=== PATIENT | male | born 1965 | race Caucasian/White ===

== ENCOUNTER → 2016-03-25 | Outpatient (REF) | payer OTHER ==
[~2016-03-25] MED LIST: ALBU17IN INH; ASPI1TAB24 PO; NITR4TASL SL
[2016-03-25 19:21] LABS: ALBUMIN 3.7 GM/DL (3.2-5.2); ALBUMIN/GLOBULIN RATIO 0.97 (1.00-1.93); ALKALINE PHOSPHATASE 135 U/L (45-117); ALT/SGPT 22 U/L (12-78); ANION GAP 7 MEQ/L (8-16); AST/SGOT 17 U/L (15-37); BILIRUBIN,TOTAL 0.5 MG/DL (0.2-1.0); BLOOD UREA NITROGEN 15 MG/DL (7-18); CALCIUM LEVEL 8.6 MG/DL (8.5-10.1); CARBON DIOXIDE LEVEL 28 MEQ/L (21-32); CHLORIDE LEVEL 105 MEQ/L (98-107); CREATININE FOR GFR 0.86 MG/DL (0.70-1.30); GLOMERULAR FILTRATION RATE > 60.0 (>56); GLUCOSE, FASTING 76 MG/DL (70-105); POTASSIUM SERUM 4.5 MEQ/L (3.5-5.1); SODIUM LEVEL 140 MEQ/L (136-145); TOTAL PROTEIN 7.5 GM/DL (6.4-8.2)
[2016-03-25 20:22] LABS: MEAN CORPUSCULAR HEMOGLOBIN 26.3 pg (27.0-33.0); MEAN CORPUSCULAR HGB CONC 32.7 g/dl (32.0-36.5); MEAN CORPUSCULAR VOLUME 80.4 fl (80.0-96.0); RED CELL DISTRIBUTION WIDTH 15.6 % (11.5-14.5); WHITE BLOOD COUNT 10.6 K/mm3 (4.0-10.0)
== END ==
LOC: M SFHCLERA 13:41
PROVIDERS: ATTEND Family Medicine
DX: Z01.818 Encounter for other preprocedural examination (principal); S09.92XD Unspecified injury of nose, subsequent encounter; X58.XXXD Exposure to other specified factors, subsequent encounter; Y92.89 Other specified places as the place of occurrence of the external cause; Y93.89 Activity, other specified; Y99.8 Other external cause status

== ENCOUNTER 2016-04-02 06:09 | Day surgery (SDC) | payer OTHER ==
[~2016-04-02] VITALS: Ht 182.9 cm; Wt 75.4 kg
[2016-04-02] VITALS (12 sets, daily range): BP systolic 121–137; BP diastolic 62–80; O2SAT 90–98
[2016-04-02] MEDS ORDERED: LR 1,000 ML IV SCH ×3 (06:15→11:15)
[2016-04-02] MEDS ORDERED: MIDAZOLAM INJ 2 MG/2 ML VIAL (J2250) As Ordered ONE ×2 (06:56→11:14)
[2016-04-02] MEDS ORDERED: ONDANSETRON 4MG/2ML VIAL (J2405) As Ordered ONE (06:57)
[2016-04-02] MEDS ORDERED: PROPOFOL 200 MG/20 ML VIAL As Ordered ONE (06:57)
[2016-04-02] MEDS ORDERED: fentaNYL 100 MCG/2 ML INJECTION (J3010) As Ordered ONE ×3 (06:57→12:04)
[2016-04-02] MEDS ORDERED: ROCURONIUM BROMIDE 50 MG/5 ML VIAL As Ordered ONE (06:57)
[2016-04-02] MEDS ORDERED: LIDOCAINE 2% INJ 100 MG/5 ML SDV (FOR ANES.) As Ordered ONE (06:57)
[2016-04-02] MEDS ORDERED: NEOSTIGMINE 1MG/ML 5 ML SYRINGE (J2710) As Ordered ONE (06:57)
[2016-04-02] MEDS ORDERED: GLYCOPYRROLATE INJ 0.2 MG/ML 2 ML VIAL As Ordered ONE ×2 (06:57)
[2016-04-02] MEDS ORDERED: METHYLENE BLUE 1% 10 ML VIAL (Q9968) As Ordered ONE ×2 (07:15→13:11)
[2016-04-02] MEDS ORDERED: LIDOCAINE W/EPINEPHRINE 1% 20ML VIAL As Ordered ONE ×2 (07:15→13:10)
[2016-04-02] MEDS ORDERED: SODIUM CHLORIDE 0.9% NASAL GEL 15MG (AYR) As Ordered ONE (07:15)
[2016-04-02] MEDS ORDERED: OXYMETAZOLINE NASAL SPRAY (AFRIN) As Ordered ONE ×2 (07:16→11:18)
[2016-04-02] MEDS ORDERED: dexameTHASONE 4 MG/ML 1ML VIAL (J1100) As Ordered ONE ×4 (07:50→12:01)
[2016-04-02] MEDS ORDERED: EPINEPHrine 1MG/ML INJ 30ML MD-VIAL As Ordered ONE ×3 (07:56→13:11)
[2016-04-02] MEDS ORDERED: LIDOCAINE W/EPINEPHRINE 1% 20ML VIAL XX ONE ×2 (08:06→14:19)
[2016-04-02] MEDS ORDERED: INDIGO CARMINE XX ONE (08:06)
[2016-04-02] MEDS ORDERED: METHYLENE BLUE 1% 10 ML VIAL (Q9968) XX ONE (08:11)
[2016-04-02] MEDS ORDERED: EPINEPHrine 1MG/ML INJ 30ML MD-VIAL XX ONE ×3 (08:14→13:06)
[2016-04-02] MEDS ORDERED: METOPROLOL 5 MG/5 ML VIAL As Ordered ONE (08:40)
[2016-04-02] MEDS ORDERED: SODIUM CHLORIDE 0.9% NASAL GEL 15MG (AYR) XX ONE (09:09)
[2016-04-02] MEDS ORDERED: PERCOCET 5MG/325MG TAB As Ordered ONE (10:02)
[2016-04-02] MEDS ORDERED: oxyCODONE 5MG TAB As Ordered ONE (10:12)
[2016-04-02] MEDS ORDERED: ONDANSETRON 4MG/2ML VIAL (J2405) IV PRN ×2 (10:15→13:45)
[2016-04-02] MEDS ORDERED: PERCOCET 5MG/325MG TAB PO PRN (10:15)
[2016-04-02] MEDS ORDERED: oxyCODONE 5MG TAB PO ONE (10:30)
[2016-04-02] MEDS: fentaNYL 100 MCG/2 ML INJECTION (J3010) IV PRN ×2 (11:00→11:05)
[2016-04-02] MEDS ORDERED: AUGMENTIN 875 MG TAB PO ONE (11:15)
[2016-04-02] MEDS ORDERED: POVIDONE-IODINE 5% OPHTH PREP SOL 30ML As Ordered ONE (11:48)
[2016-04-02] MEDS ORDERED: PHENYLEPHRINE 2.5% OPHTH SOL 2ML As Ordered ONE (12:02)
[2016-04-02] MEDS ORDERED: TROPICAMIDE 1% OPHTH SOLN 2 ML As Ordered ONE (12:03)
[2016-04-02] MEDS ORDERED: SUGAMMADEX SODIUM 500 MG/5 ML VIAL (BRIDION) As Ordered ONE (12:15)
--- NOTE | 2016-04-02 12:36 | REP ---
CT MAXILLOFACIAL WITHOUT CONTRAST: 04/02/2016 CLINICAL HISTORY: Trauma, postoperative. Comparison: 12/13/[address] TECHNIQUE: Axial soft tissue and bone window settings with coronal and sagittal reconstructions in soft tissue and bone window settings. As on the previous study, the septum is deviated towards the right and the nose deviated to the left. However, there is now evidence of acute depressed comminuted nasal bone fractures bilaterally. In addition, the medial wall of the right orbit is fractured with opacification of ethmoid air cells anteriorly on both sides. There is air-fluid level in the right frontal sinus with fracture through the floor of the right frontal sinus. The orbital floor on both sides is intact and unchanged. The zygomatic arches and lateral orbital struts are intact. There is hematoma in the right orbit peripheral to the medial rectus muscle. This proptosis of the right globe. Extensive periorbital hematoma is noted. The supraorbital and periorbital region on the right. There are air-fluid levels in the bilateral maxillary sinuses. Some air fluid level in the left sphenoid sinus and mucosal thickening in the right. The left orbital margins appear grossly intact. The osteomeatal complex on the left is patent. On the right it is stenotic on the previous study and occluded today. No fracture of the left frontal sinus or air-fluid level there in. Minor mucosal thickening in the floor near the frontoethmoidal recess on the left. Mastoids are intact. Visualized mandible, its condyles and rami intact. The nasal spine of the maxilla without a fracture. There is soft-tissue swelling upper lip. Ring of C1 is intact. Dens and C1 have a normal relationship on all projections. IMPRESSION: 1. Acute fractures of the nasal bones depressed, comminuted and seen bilaterally. There is deviation of the septum towards the right and the nose towards the left as on the previous studies but the fractures are all new. 2. Fracture of the medial orbital wall anteriorly an the floor of the frontal sinus on the right without definite discontinuity on the left and with opacification of right ethmoids, anterior left ethmoids, left frontal sinus, left and right sphenoids with air-fluid levels, and mucosal thickening and air-fluid levels in both maxillary sinuses. 3. Periorbital hematoma supraorbital ridge to infraorbital region on the right side which appears acute. There is proptosis of the right globe with hematoma peripheral to the medial rectus muscle. Signed by Champ Bales MD 04/02/2016 05:58 P
[2016-04-02] MEDS ORDERED: TOBRADEX OPHTH OINT 3.5 GM As Ordered ONE (13:03)
[2016-04-02] MEDS ORDERED: MORPHINE 4 MG/ML 1ML SYRINGE IV PRN (13:45)
[2016-04-02] MEDS ORDERED: NITROGLYCERIN 0.4 MG SUBL TABLET SL PRN (13:45)
[2016-04-02] MEDS ORDERED: TROPICAMIDE 1% OPHTH SOLN 2 ML XX ONE (14:22)
[2016-04-02] MEDS ORDERED: PHENYLEPHRINE 2.5% OPHTH SOL 2ML XX ONE (14:24)
[2016-04-02] MEDS ORDERED: TOBRADEX OPHTH OINT 3.5 GM XX ONE (14:25)
[2016-04-02] MEDS ORDERED: TOBRADEX OPHTH OINT 3.5 GM OD SCH ×2 (16:00→18:00)
[2016-04-02] MEDS ORDERED: AMOX875T PO (16:12)
[2016-04-02] MEDS ORDERED: NAPR500T PO (16:14)
[2016-04-02] MEDS: AcetaZOLAMIDE 250 MG TAB PO SCH ×2 (17:47→22:03)
[2016-04-02] MEDS: TOBRADEX OPHTH OINT 3.5 GM OD SCH ×2 (17:47→22:03)
[2016-04-02] MEDS: SODIUM CHLORIDE NASAL 0.65% SPRAY BTL (OCEAN) SCH ×2 (18:06→22:03)
[2016-04-02] MEDS: AUGMENTIN 875 MG TAB PO SCH (20:43)
[2016-04-02] MEDS: traMADol 50 MG TAB PO PRN (20:44)
[2016-04-02] MEDS: dexameTHASONE 4 MG/ML 1ML VIAL (J1100) IV SCH (20:44)
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
--- NOTE | 2016-04-02 21:09 | RO ---
DATE OF PROCEDURE: 04/02/2016 PREPROCEDURE DIAGNOSES: 1. Suspected right orbital hemorrhage. 2. Proptosis. 3. Afferent pupillary defect. POSTPROCEDURE DIAGNOSES: 1. Suspected right orbital hemorrhage. 2. Proptosis. 3. Afferent pupillary defect. OPERATIVE PROCEDURE: Right inferior and superior canthotomy cantholysis. SURGEON: Arsalan Shook MD TRANSPORTATION CLERK: None ANESTHESIA: General. COMPLICATIONS: None. POSTOPERATIVE CONDITION: Stable. INDICATIONS FOR SURGERY: 1. Suspected right orbital hemorrhage 2. Elevated right eye intraocular pressure (IOP) DESCRIPTION OF PROCEDURE: The patient was seen in the post anesthesia care unit (PACU) as an urgent consultation at the request of anesthesiology and Dr. Austin. The patient was found to have a proptotic right eye with an IOP of approximately 50, an afferent pupillary defect, and markedly restricted gaze movements. The patient is post septorhinoplasty. There is clinical evidence for the presence of a retrobulbar hemorrhage. Due to the patient recently having general anesthesia, and the was an urgent need to perform the procedure, and the patient was unable to be consented. The decision was made to perform a right superior and inferior canthotomy and cantholysis, and have ENT explore the nasal cavity. The patient was then transferred to the operating room in next 5 minutes. The correct eye was identified. Attention was turned to that eye. The correct side was reidentified. The patient received a topical anesthetic. Using a hemostat, the right lateral canthus was clamped for approximately one minute. The hemostat was then removed. Using Leroy scissors, an incision was made at the lateral canthus to about 1.5 cm from the original lateral canthal position. At that time, toothed forceps were used to grasp the upper eyelid and slightly retract while the Leroy scissors were used to strum the superior volodymyr of the lateral canthal tendon. It was then cut and the upper eyelid was free. The forceps were then used to retract the lower eyelid and the lower canthal volodymyr was cut. Both superior and inferior eyelids were found to be completely mobile and free from the globe. At that time, there was prominent bleeding from the lateral canthus indicating appropriate drainage of the orbit. At this time, one drop of phenylephrine and one drop of Tropicamide were placed in the eye. ENT was able to perform endoscopic exploration of the sinus. Please see their separate operative report. After ENT performed the endoscopic evaluation, a dilated fundus exam was performed in the operating room with a 20 diopter lens and indirect light source. The right optic nerve was found to be sharp, pink and flat with a cup-to-disc ratio of approximately 0.35, no edema or heme was evident. The macula was found to be within normal limits with no edema, hemorrhage. The retina was found to be flat, 360 degrees, with no hemorrhage and no rhegmatogenous pathology. The patient was discharged to the PACU in stable condition. The intraocular pressure was then remeasured approximately one hour postprocedure and was found to be approximately 29 at that point. The patient will be admitted to the hospital overnight under the care of Dr. Austin. The patient was started on TobraDex ointment four times a day to the right eye, Diamox 250 mg by mouth three times a day, cold compresses over the right eye every six hours and the patient will be re-examined in 1 day. PEMA
[2016-04-03] VITALS (14 sets, daily range): BP systolic 102–114; BP diastolic 56–59; O2SAT 92–96
[2016-04-03] MEDS: dexameTHASONE 4 MG/ML 1ML VIAL (J1100) IV SCH ×2 (05:10→12:08)
[2016-04-03] MEDS: traMADol 50 MG TAB PO PRN (05:11)
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
[2016-04-03] MEDS ORDERED: CETIRIZINE (ZyrTEC) 10 MG TAB PO SCH (09:00)
[2016-04-03] MEDS: AcetaZOLAMIDE 250 MG TAB PO SCH (09:34)
[2016-04-03] MEDS: AUGMENTIN 875 MG TAB PO SCH (09:34)
[2016-04-03] MEDS: TOBRADEX OPHTH OINT 3.5 GM OD SCH ×2 (09:34→12:08)
[2016-04-03] MEDS: SODIUM CHLORIDE NASAL 0.65% SPRAY BTL (OCEAN) SCH (09:35)
--- NOTE | 2016-04-03 13:27 | IPN ---
DATE: 04/03/2016 at 11:30 a.m. Patient seen and examined at the bedside. Patient noted decreased right eye pain, now with mild ache and decreased swelling of the right eye. Denies any change in visual acuity, nausea or vomiting. Visual acuity uncorrected with count fingers at 5 feet in both eyes. Extraocular movements were full with no restriction both eyes (OU). Confrontation visual ross were full to count fingers OU. Pupils 3 mm in light, 2 mm dark with no APD OU Lids, lashes and adnexa of the right eye showed decreased swelling and ecchymosis. The superior and inferior eyelids were lax at the lateral canthus status post canthotomy, cantholysis and had good mobility. Conjunctiva/sclera of the right eye 3+ subconjunctival hemorrhage superiorly and inferiorly. Resolved chemosis, which is improved from yesterday. Cornea is clear. Lens had nuclear sclerosis. Iris was flat and brown. Anterior chamber: deep, quiet, without hypopyon or hyphema. ASSESSMENT AND PLAN: 1. Right orbital hemorrhage status post canthotomy, cantholysis. 2. Status post septorhinoplasty with ENT. 3. Subconjunctival hemorrhage. 4. Right inferior orbital fracture. PLAN: Continue with current management. Decrease Diamox to 250 mg by mouth twice a day. Continue with ophthalmic lubrication in the form of TobraDex ointment [id number] as directed. Will add tape tarsorrhapy at bedtime, prior to placing ointment - nurse was instructed at the bedside how to perform this. Patient may go home at any point from an ophthalmic standpoint and can be seen as outpatient. Stressed the need for followup and need for continued lubrication since increased risk of exposure keratopathy Please call if there any changes in the patient's symptoms. Thank your for this consultation. PEMA
--- NOTE | 2016-04-03 13:58 | RO ---
DATE OF PROCEDURE: 04/02/2016 PREPROCEDURE DIAGNOSIS: Right periorbital ecchymosis. POSTPROCEDURE DIAGNOSIS: Right periorbital ecchymosis. PROCEDURE: Right nasal endoscopy with decompression of the right periorbital ecchymosis. SURGEON: Dr. Narinder Austin SAP TECHNICAL DEVELOPER: ANESTHESIA: General. CLINICAL PREAMBLE: This 50-year-old man underwent septorhinoplasty earlier in the morning of 04/02/2016. In the postop area, the patient developed acute onset of right orbital pain with increasing right periorbital ecchymosis. He was noted to have decreased extraocular motion. The right orbit was firm to palpation. An urgent CT sinuses was performed. A stat ophthalmology was also requested. On discussion with Dr. Arsalan Shook, the gaggerman hydroponics grower, decision was made to bring the patient back to the OR immediately for lateral canthotomy as well as endoscopic evaluation of the right nasal cavity. In the preop area, the Steel splints and the Norman splints were removed. Patient was brought to the operating room on emergent basis. He underwent uneventful general anesthesia followed by oral tracheal intubation without incident. At this time, Dr. Shook performed successful right lateral canthotomy. Please refer to his operative report for that portion of the procedure. Upon the successful completion of the right lateral canthotomy, the cottonoid pledgets socked in 1:100,000 epinephrine were used to pad both sides of the nasal cavity. At this time, the suture holding the incision site over at the right pyriform aperture was removed. Using the Barbour tip suction, the hematoma was evacuated from the lateral and medial osteotomy site from the right nasal cavity. Using the 30 degree nasal endoscope, examination of the nasal cavity revealed intact middle nasal turbinates as well as intact lamina papyracea. The medial osteotomy site was noted to be superior to the right middle nasal turbinate. The incision site was suctioned as well as the suction tube was inserted further along the osteotomy site to evacuate additional hematoma. There was no gross exposure of the periorbital fat noted. The hemostasis of the nasal cavity was achieved by placing cottonoid pledgets soaked in 1:100,000 epinephrine. The left nasal cavity was as well as examined and found to be unremarkable. At the conclusion of the procedure, the right orbit was noted to have markedly decrease in pressure on palpation. Additional dose of Decadron was also administered. At this time, general anesthesia was reversed and the patient was extubated and brought to the recovery room in stable condition.
[2016-04-03] MEDS ORDERED: TRAM-533 PO (15:00)
[2016-04-03] MEDS ORDERED: OCEA0.654 (15:00)
[2016-04-03] MEDS ORDERED: ZYRT10CA PO (15:00)
[2016-04-03] MEDS ORDERED: AUGM875T27 PO (15:00)
[2016-04-03] MEDS ORDERED: DIAM500C PO (15:00)
[2016-04-03] MEDS ORDERED: TOBROPO OD (15:00)
[2016-04-03] MEDS ORDERED: AcetaZOLAMIDE 250 MG TAB PO SCH (21:00)
[2016-04-03] MEDS ORDERED: ACET25TA PO (22:40)
[2016-04-03] MEDS ORDERED: NITR4TASL SL (22:40)
[2016-04-03] MEDS ORDERED: NAPR500T2 PO (22:42)
[2016-04-03] MEDS ORDERED: ASPI81TAEC PO (22:42)
== END 2016-04-03 16:05 | disposition home or self-care (01) ==
LOC: M SDC 06:09 → M PCU 14:50 → M SDC 04-03 16:05
PROVIDERS: ATTEND Otolaryngology
DX: J34.2 Deviated nasal septum (principal); M95.0 Acquired deformity of nose; S09.92XD Unspecified injury of nose, subsequent encounter; W22.8XXD Striking against or struck by other objects, subsequent encounter; H05.221 Edema of right orbit; H57.11 Ocular pain, right eye; H59.12 Intraoperative hemorrhage and hematoma of eye and adnexa complicating other procedure; H05.231 Hemorrhage of right orbit; H57.09 Other anomalies of pupillary function; H40.059 Ocular hypertension, unspecified eye; H11.31 Conjunctival hemorrhage, right eye; S02.31XA Fracture of orbital floor, right side, initial encounter for closed fracture; I25.10 Atherosclerotic heart disease of native coronary artery without angina pectoris; J44.9 Chronic obstructive pulmonary disease, unspecified; G47.30 Sleep apnea, unspecified; I25.2 Old myocardial infarction; Z86.73 Personal history of transient ischemic attack (TIA), and cerebral infarction without residual deficits; E78.2 Mixed hyperlipidemia; J45.909 Unspecified asthma, uncomplicated; R09.81 Nasal congestion; R51 Headache; F17.210 Nicotine dependence, cigarettes, uncomplicated; Z79.899 Other long term (current) drug therapy; Z79.82 Long term (current) use of aspirin; Z79.1 Long term (current) use of non-steroidal anti-inflammatories (NSAID); Z88.6 Allergy status to analgesic agent; Z88.8 Allergy status to other drugs, medicaments and biological substances; Z91.013 Allergy to seafood; Z91.030 Bee allergy status; Z91.018 Allergy to other foods
CPT/HCPCS: 30420; 31292; 67715; 70486; 88300; 96374; 96376; J1100; J2250; J2405; J2710; J3010; Q9968

== ENCOUNTER 2016-04-03 18:57 | Inpatient (IN) | payer OTHER ==
[~2016-04-03] VITALS: Ht 182.9 cm; Wt 75.0 kg
[~2016-04-03 18:57] MED LIST changes: +AMOX875T PO; +AUGM875T27 PO; +DIAM500C PO; +NAPR500T PO; +OCEA0.654; +TOBROPO OD; +TRAM-533 PO; +ZYRT10CA PO
[2016-04-03] MEDS ORDERED: MORPHINE 4 MG/ML 1ML SYRINGE As Ordered ONE (19:43)
[2016-04-03] MEDS ORDERED: ONDANSETRON 4MG/2ML VIAL (J2405) As Ordered ONE (19:43)
[2016-04-03 20:14] LABS: BASO % 0.1 % (0.0-1.0); EOS % 0.2 % (0.0-3.0); LARGE UNSTAINED CELL # 0.1 K/mm3 (0.0-0.4); LARGE UNSTAINED CELL % 0.8 % (0.0-4.0); LYMPH # 1.2 K/mm3 (1.5-4.5); LYMPH % 7.3 % (24.0-44.0); MEAN CORPUSCULAR HEMOGLOBIN 26.4 pg (27.0-33.0); MEAN CORPUSCULAR HGB CONC 32.4 g/dl (32.0-36.5); MEAN CORPUSCULAR VOLUME 81.4 fl (80.0-96.0); MONO # 0.5 K/mm3 (0.0-0.8); MONO % 3.1 % (0.0-5.0); NEUTROPHILS # 14.8 K/mm3 (1.8-7.7); NEUTROPHILS % 88.5 % (36.0-66.0); PLATELET COUNT, AUTOMATED 276 k/mm3 (150-450); RED CELL DISTRIBUTION WIDTH 14.5 % (11.5-14.5); WHITE BLOOD COUNT 16.7 K/mm3 (4.0-10.0)
[2016-04-03 20:37] LABS: ANION GAP 10 MEQ/L (8-16); BLOOD UREA NITROGEN 21 MG/DL (7-18); CALCIUM LEVEL 8.6 MG/DL (8.5-10.1); CARBON DIOXIDE LEVEL 18 MEQ/L (21-32); CHLORIDE LEVEL 110 MEQ/L (98-107); CREATININE FOR GFR 0.92 MG/DL (0.70-1.30); GLOMERULAR FILTRATION RATE > 60.0 (>56); GLUCOSE, FASTING 117 MG/DL (70-105); POTASSIUM SERUM 4.3 MEQ/L (3.5-5.1); SODIUM LEVEL 138 MEQ/L (136-145)
--- NOTE | 2016-04-03 21:10 | REPUSA ---
Reason for examination : Syncope Comparison: CT head 12/28/2015 Technique: CT head: Multiple axial images were obtained without contrast from the skull vertex to C1. CT facial bones: Multiple contiguous axial CT images were also obtained through the facial bones at 2 .5 mm slice thickness without the use of intravenous contrast. 1.25 mm axial reformations were create d from which sagittal and coronal reformations were performed to evaluate the orbital floors. Findings: No acute intracranial hemorrhage or evidence of acute transcortical ischemia. No suspicious intra-axi al or extraction fluid collection, midline shift, or hydrocephalus. Posterior Fossa: Unremarkable. There is leftward deviated nasal deformity with soft tissue swelling, with bilateral nasal bone fract ures with approximately 4.6 mm depression of the left, and extending to the nasal maxillary ridge on the right. Small nondisplaced anterior right lamina papyracea fracture is also noted on axial series 301, image [id number]. Ethmoidal sinus mucosal thickening with small fluid levels in right frontal and mastoid sinuses with hemorrhagic products. There is right superomedial orbital compartment retrobulbar stranding with thickening of the medial r ectus and oblique muscles. The optic globes appear intact. Inner ear cavities appear unremarkable. IMPRESSION: 1. No acute intracranial hemorrhage. 2. Leftward deviated nasal deformity with soft tissue swelling, with bilateral nasal bone fractures w ith approximately 4.6 mm depression of the left, and extending to the nasal maxillary ridge on the ri ght. Small nondisplaced anterior right lamina papyracea fracture also noted. 3. Right superomedial orbital compartment retrobulbar stranding with thickening of the medial rectus and oblique muscles. Ophthalmologic consultation should be considered.
[2016-04-03 21:18] LABS: ABG BASE EXCESS -7.2 (-2.0-2.0); ABG DEVICE NASAL CANN; ABG HCO3 17.7 MEQ/L (22.0-26.0); ABG PARTIAL PRESSURE CO2 34.2 mmHg (35.0-45.0); ABG PARTIAL PRESSURE O2 78.9 mmHg (75.0-100.0); ABG STANDARD HCO3 18.6 MEQ/L (22.0-26.0); ABG TOTAL CO2 18.8 MEQ/L (22.0-29.0); ABG pH (ARTERIAL) 7.332 UNITS (7.350-7.450)
[2016-04-03] MEDS ORDERED: dexameTHASONE 4 MG/ML 1ML VIAL (J1100) As Ordered ONE (22:02)
[2016-04-03] MEDS ORDERED: cefTRIAXone SOD 1 GM VIAL (J0696) As Ordered ONE (22:02)
[2016-04-03] MEDS ORDERED: [UNRECOGNIZED DRUG - OTHER] IV ONE (22:30)
[2016-04-03] MEDS ORDERED: D5W IV ONE (22:30)
[2016-04-03] MEDS ORDERED: ACET25TA PO (22:40)
[2016-04-03] MEDS ORDERED: NITR4TASL SL (22:40)
[2016-04-03] MEDS ORDERED: NAPR500T2 PO (22:42)
[2016-04-03] MEDS ORDERED: ASPI81TAEC PO (22:42)
[2016-04-03] MEDS ORDERED: AcetaZOLAMIDE 250 MG TAB PO ONE (22:45)
[2016-04-03] MEDS ORDERED: traMADol 50 MG TAB PO PRN (23:00)
[2016-04-03] MEDS ORDERED: ALBUTEROL 90 MCG/ACT 8GM HFA INHALER INH PRN (23:00)
[2016-04-03] MEDS ORDERED: LR 1,000 ML IV SCH (23:15)
[2016-04-03] MEDS ORDERED: ONDANSETRON 4MG/2ML VIAL (J2405) IV PRN (23:15)
[2016-04-04] VITALS (8 sets, daily range): BP systolic 98–133; BP diastolic 58–79
[2016-04-04] MEDS: dexameTHASONE 20 MG/5 ML VIAL (J1100) IV SCH ×3 (01:28→21:40)
[2016-04-04] MEDS: SENOKOT S TAB PO SCH ×3 (01:30→21:46)
[2016-04-04] MEDS ORDERED: ATORVASTATIN 20 MG TAB As Ordered ONE (01:37)
[2016-04-04] MEDS ORDERED: CEFTAROLINE FOSAMIL 600 MG VIAL (TEFLARO) As Ordered ONE ×2 (01:37→09:37)
--- NOTE | 2016-04-04 01:40 | REP ---
Clinical: Syncope . Comparison: 02/01/2016 . Technique: PA and lateral. Findings: The mediastinum and cardiac silhouette are normal. The lung ross demonstrate chronic stable changes without acute consolidation, effusion, or pneumothorax. The skeletal structures are intact and normal. Impression: 1. No acute cardiopulmonary process. Signed by Alvarez Hart MD 04/04/2016 01:31 A
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
[2016-04-04] MEDS: TOBRADEX OPHTH OINT 3.5 GM OD SCH ×5 (01:53→21:41)
[2016-04-04] MEDS: ATORVASTATIN 20 MG TAB PO SCH ×2 (01:53→21:46)
[2016-04-04] MEDS: CEFTAROLINE FOSAMIL 600 MG in D5W MINI-BAG PLUS 50 ML IV SCH ×3 (01:54→21:42)
--- NOTE | 2016-04-04 05:12 | REP ---
Clinical: Syncope . Technique: Mata scale and color Doppler evaluation using linear high frequency transducer Findings: Two-dimensional mata scale and color images demonstrate mild symmetric mixed plaquing along the common carotid arteries extending to the proximal internal carotid arteries with normal laminar flow and no significant narrowing. Color Doppler interrogation demonstrates normal arterial wave patterns and velocities with no significant spectral broadening. Normal flow direction is appreciated in the left vertebral artery while the right vertebral artery is not visualized. RIGHT (cm/s) LEFT (cm/s) ICA peak systolic velocity 66.3 44.9 ICA diastolic velocity 22.9 21.9 ECA peak systolic velocity 65.1 56.5 CCA peak systolic velocity 84.3 76.8 ICA/CCA ratio 0.79 0.58 Impression: 1. No hemodynamically significant areas of narrowing or stenosis appreciated. Based on set standards narrowing falls within the less than 50% range. 2. Normal left vertebral artery. Right vertebral artery not visualized. Signed by Alvarez Hart MD 04/04/2016 05:03 A
[2016-04-04 06:48] LABS: MEAN CORPUSCULAR HEMOGLOBIN 26.2 pg (27.0-33.0); MEAN CORPUSCULAR VOLUME 81.8 fl (80.0-96.0); RED CELL DISTRIBUTION WIDTH 14.7 % (11.5-14.5); WHITE BLOOD COUNT 15.2 K/mm3 (4.0-10.0)
[2016-04-04 07:28] LABS: ANION GAP 9 MEQ/L (8-16); BLOOD UREA NITROGEN 18 MG/DL (7-18); CALCIUM LEVEL 8.3 MG/DL (8.5-10.1); CARBON DIOXIDE LEVEL 17 MEQ/L (21-32); CHLORIDE LEVEL 116 MEQ/L (98-107); CREATININE FOR GFR 0.81 MG/DL (0.70-1.30); GLOMERULAR FILTRATION RATE > 60.0 (>56); GLUCOSE, FASTING 95 MG/DL (70-105); MAGNESIUM LEVEL 2.3 MG/DL (1.8-2.4); SODIUM LEVEL 142 MEQ/L (136-145)
[2016-04-04] MEDS: CETIRIZINE (ZyrTEC) 10 MG TAB PO SCH (09:42)
[2016-04-04] MEDS: AcetaZOLAMIDE 250 MG TAB PO SCH ×3 (09:42→21:40)
[2016-04-04] MEDS ORDERED: ALPRAZolam 0.25 MG TAB As Ordered ONE (10:47)
[2016-04-04] MEDS ORDERED: ALPRAZolam 0.25 MG TAB PO ONE (11:15)
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
--- NOTE | 2016-04-04 12:11 | EDDOCDS ---
Nurse's Notes [facility] Name: Abhijit Sandoval Age: 50 yrs Sex: Male : 1965 Arrival Date: 04/03/2016 Time: 18:57 Bed Admit Hold Private MD: Juanito Hamm MD Diagnosis: Syncope and collapse-with EKG changes;Visual discomfort, bilateral Presentation: 04/03 19:01 Presenting complaint: EMS states: patient just released for bilateral septal nasal kas2 repair with deviated septum. Sitting in his chair tonight and passed out in front of girlfriend. FSBS 140 mg/dL. Denies chest pain of shortness of breath. Adult Sepsis Screening: The patient does not have new or worsening altered mentation. Patient's respiratory rate is less than 22. Systolic blood pressure is greater than 100. Patient has a qSOFA score of 0- Negative Sepsis Screen. Suicide/Homicide risk assessment- the patient denies having any suicidal and/or homicidal ideations and does not present with any other emotional, behavioral or mental health complaints. Status: Patient is not a health services coordinator or dependent. Transition of care: patient was not received from another setting of care. 19:01 Acuity: [place] Level 3 kas2 19:01 Method Of Arrival: Ambulance kas2 Triage Assessment: 19:09 General: Appears in no apparent distress, comfortable, well nourished, well groomed, kas2 Behavior is appropriate for age, cooperative. Pain: Location: eyes and nose Pain currently is 6 out of 10 on a pain scale. Pt Declines HIV testing. Neurological: Level of Consciousness is awake, alert, Oriented to person, place, time. Cardiovascular: Capillary refill < 3 seconds Heart tones S1 S2 present Rhythm is sinus rhythm No ectopy. Respiratory: Airway is patent Respiratory effort is even, unlabored, Respiratory pattern is regular, symmetrical, Breath sounds are clear bilaterally. Derm: Skin is intact, Skin is dry, Skin is pink, warm & dry. Skin temperature is warm. Musculoskeletal: No deficits noted. Injury Description: No known injury. Historical: - Allergies: asparagus; Bees; Grape Jelly; Non-dairy creamer; steroids ( heart rate high); tylenolsyncopal episode that last for 24-48 hours; - Home Meds: 1. amoxicillin 875 mg Oral tab 1 tab every 12 hours finished yesterday 2. aspirin 81 mg Oral TbEC takes once every 3 days every other day 3. naproxen 500 mg Oral tab 1 tab every 12 hours 4. nitroglycerin 0.4 mg SL subl 1 tab as needed 5. Proventil HFA 90 mcg/actuation inhalation HFAA 2 puffs every 12 hours as needed 6. saline nasal spray------2x daily 7. Ultram 50 mg Oral tab every 6 hours as needed - PMHx: CAD; CVAX2; fractured nose---2016; hyperlipidemia; DC; Sleep Apnea w/ CPAP; - PSHx: right knee surgery; Hernia repair; - Social history: Smoking status: Patient uses tobacco products, light tobacco smoker. No barriers to communication noted, The patient speaks fluent Kuwaiti. - : The pt / caregiver states he / she is not on anticoagulants. Home medication list is obtained from the patient. - Exposure Risk Screening:: None identified. Screenin:13 Screening information is obtained from the patient. Fall risk: No risks identified. kas2 Assistance ADL's: requires no assistance with activities of daily living. Abuse/DV Screen: The patient / caregiver reports he/she is: not in a situation that causes fear, pain or injury. Nutritional screening: No deficits noted. Advance Directives: Currently, there is no health care proxy. There is no active DNR order. There is no living will. There is no Power of Automobile Technician. home support is adequate. Assessment: 19:12 General: See triage note.. kas2 20:15 General: Appears in no apparent distress, comfortable, well nourished, well groomed, kas2 Behavior is appropriate for age, cooperative. Pain: Denies pain. Neurological: Level of Consciousness is awake, alert, obeys commands, Oriented to person, place, time. Cardiovascular: Rhythm is sinus rhythm No ectopy. Respiratory: No deficits noted. Airway is patent Respiratory effort is even, unlabored, Respiratory pattern is regular, symmetrical, Breath sounds are clear bilaterally. Derm: Skin is intact, Skin is dry, Skin is pink, warm & dry. Skin temperature is warm. 21:08 General: Patient laying in bed sleeping. No apparent distress noted. Appears kas2 comfortable. Call paz within reach. Will continue to monitor.. 21:54 General: Appears in no apparent distress, comfortable, well nourished, well groomed, kas2 Behavior is appropriate for age, cooperative. Pain: Denies pain. Neurological: Level of Consciousness is awake, alert, obeys commands, Oriented to person, place, time. Cardiovascular: Rhythm is sinus rhythm No ectopy. Respiratory: No deficits noted. Airway is patent Respiratory effort is even, unlabored, Respiratory pattern is regular, symmetrical. Derm: Skin is intact, Skin is dry, Skin is pink, warm & dry. Skin temperature is warm. 22:21 General: Hospitalist in assessing patient at this time.. kas2 23:20 General: Appears in no apparent distress, comfortable, well nourished, well groomed, kas2 Behavior is appropriate for age, cooperative. Pain: Denies pain. Neurological: Level of Consciousness is awake, alert, obeys commands, Oriented to person, place, time. Cardiovascular: Rhythm is sinus rhythm No ectopy. Respiratory: Airway is patent Respiratory effort is even, unlabored, Respiratory pattern is regular, symmetrical. Derm: Skin is intact, Skin is dry, Skin is pink, warm & dry. Skin temperature is warm. 04/04 00:32 General: Patient in with admission nurse answering questions. No apparent distress. kas2 Appears comfortable. Denies pain or discomfort. VSS. Call paz within reach. Will continue to monitor.. 01:09 General: Verbal report given to Tiffanie Castellanos RN.. [facility] Vital Signs: 04/03 19:05 BP 132 / 84 (auto/); kas2 19:07 Pulse 86 MON; Pulse Ox 96% ; kas2 19:11 BP 132 / 84; Pulse 79; Resp 18; Temp 97.3(O); Pulse Ox 96% on R/A; Weight 78.93 kg; kas2 Height 6 ft. 0 in. (182.88 cm); Pain 6/10; 20:01 BP 128 / 78 (auto/); kas2 20:01 Pulse 72 MON; Pulse Ox 97% ; kas2 20:11 BP 124 / 76 (auto/); kas2 20:11 Pulse 68 MON; Pulse Ox 95% ; kas2 20:16 Resp 18; kas2 20:16 BP 117 / 73 (auto/); kas2 20:16 Pulse 74 MON; Pulse Ox 95% ; kas2 20:25 Resp 20; kas2 20:31 BP 121 / 76 (auto/); kas2 20:31 Pulse 68 MON; Pulse Ox 96% ; kas2 20:46 BP 120 / 75 (auto/); kas2 20:46 Pulse 70 MON; Pulse Ox 97% ; kas2 21:01 BP 114 / 71 (auto/); kas2 21:01 Pulse 68 MON; Pulse Ox 97% ; kas2 21:16 BP 114 / 72 (auto/); kas2 21:16 Pulse 64 MON; Pulse Ox 97% ; kas2 21:31 BP 111 / 71 (auto/); kas2 21:31 Pulse 74 MON; Pulse Ox 96% ; kas2 21:46 BP 104 / 62 (auto/); kas2 21:46 Pulse 70 MON; Pulse Ox 95% ; kas2 21:54 BP 114 / 72; Pulse 64; Resp 18; Pulse Ox 96% on R/A; Pain 0/10; kas2 22:01 BP 119 / 72 (auto/); kas2 22:01 Pulse 64 MON; Pulse Ox 98% ; kas2 22:31 BP 137 / 93 (auto/); kas2 22:31 Pulse 66 MON; Pulse Ox 97% ; kas2 22:46 BP 133 / 87 (auto/); kas2 22:46 Pulse 66 MON; Pulse Ox 96% ; kas2 23:01 BP 132 / 86 (auto/); kas2 23:01 Pulse 60 MON; Pulse Ox 97% ; kas2 23:16 BP 126 / 81 (auto/); kas2 23:16 Pulse 64 MON; Pulse Ox 97% ; kas2 23:21 Resp 18; Temp 98.2(O); Pain 0/10; kas2 23:31 BP 133 / 82 (auto/); kas2 23:31 Pulse 60 MON; Pulse Ox 97% ; kas2 23:46 BP 130 / 82 (auto/); kas2 23:46 Pulse 74 MON; Pulse Ox 97% ; kas2 02 00:01 BP 126 / 79 (auto/); kas2 00:01 Pulse 60 MON; Pulse Ox 97% ; kas2 00:16 BP 127 / 81 (auto/); kas2 00:16 Pulse 64 MON; Pulse Ox 97% ; kas2 00:31 BP 123 / 77 (auto/); kas2 00:31 Pulse 62 MON; Pulse Ox 97% ; kas2 00:34 Resp 20; Temp 97.9(O); Pain 0/10; kas2 02 19:11 Body Mass Index 23.60 (78.93 kg, 182.88 cm) [facility] Vitals: 02 19:11 Glucose Measurement D-stick done by EMS 140 mg/dL. Log In Time N/A - ambulance arrival. [facility] ED Course: 18:58 Patient visited by Tayler Pastor, Hook Tender. lbd 18:58 Juanito Hamm is Private Physician. lbd 18:58 Tiffanie Santa RN is Primary Nurse. lbd 18:58 Patient moved to Waiting lbd 18:58 Patient moved to 11 lbd 19:04 Triage Initiated kas2 19:12 Maintain field IV. Dressing intact. Site clean & dry. Gauge & site: 20G left AC. No [facility] procedures done that require assistance. 19:14 Patient visited by Tiffanie Santa RN. [facility] 19:16 EKG done. (by ED staff). Reviewed by Nakul Patiño MD. [facility] 19:17 Patient visited by Terrie Carrillo, Hook Tender. [facility] 19:17 Pt greeted and oriented to ED. Patient advised of names of staff involved in care, jl location of call paz, wait times and NPO status. Patient has correct armband on for positive identification. Placed in gown. Bed in low position. Call light in reach. Side rails up X 1. server manager on. Pulse ox on. NIBP on. 19:20 Arsalan Rubin DO is Attending Physician. mm11 19:20 Patient visited by Arsalan Rubin DO. mm11 19:36 Patient visited by Arsalan Rubin DO. mm11 20:17 Patient visited by Tiffanie Santa RN. kas2 20:25 Patient visited by Tiffanie Santa RN. kas2 20:33 [facility] Payment Agreement was scanned into [employer] and attached to record. zo 21:09 Patient visited by Tiffanie Santa RN. kas2 21:09 -Arterial Blood Gas Sent. jh6 21:32 CT Maxilofacial W/out Contrast Returned. EDMS 21:32 CT Head Without Contrast Returned. EDMS 21:55 Patient visited by Tiffanie Santa RN. kas2 22:01 Patient visited by Tiffanie Santa RN. kas2 22:09 Shy Vizcarra is Hospitalizing Provider. mm11 22:21 Lactic Acid (Mata tube on ice) Sent. kas2 22:21 Labs drawn. (by ED staff). Sent per order to lab. kas2 22:22 Patient visited by Tiffanie Santa RN. kas2 23:16 Patient moved to Admit Hold sls1 23:21 Patient visited by Tiffanie Santa RN. kas2 04/04 00:11 Patient visited by Tiffanie Santa RN. kas2 00:34 Patient visited by Tiffanie Santa RN. kas2 01:10 Patient visited by Tiffanie Santa RN. kas2 01:11 Patient moved to 19 sls1 01:11 Patient moved to Admit Hold sls1 01:48 Chest, 1 View Returned. EDMS 04:17 Patient moved to 2 mm11 04:17 Patient moved to 19 mm11 04:17 Patient moved to Admit Hold sls1 05:35 Duplex,carotid (complete) Returned. EDMS 07:25 Diet: Patient refused offered diet. jrd 07:26 Patient visited by Chris Ramirez PCA. jrd 08:24 Primary Nurse role handed off by Tiffanie Santa RN kr3 Administered Medications: 04/03 20:13 Drug: NS 0.9% 1000 ml [sodium chloride 0.9 % intravenous solution] Route: IV; Rate: kas2 bolus; Site: left antecubital; 21:54 Follow up: IV Status: Completed infusion; IV Intake: 1000ml [facility] 20:13 Drug: morphine 4 mg [morphine 4 mg/mL intravenous cartridge (1 mL)] Route: IVP; Site: [facility] left antecubital; 21:54 Follow up: BP 114 / 72; Pulse 64 bpm; Resp 18 bpm; Pulse Ox 96% RA; Pain 0/10 Adult [facility] 21:54 Follow up: Response: No Adverse Reaction; Pain is resolved [facility] 20:13 Drug: Ondansetron 4 mg [ondansetron HCl 2 mg/mL intravenous solution (2 mL)] Route: kas2 IVP; Site: left antecubital; 20:25 Not Given (patient very drowsy from morphine given. Dr. Rubin aware.): Diazepam 2 mg kas2 IVP once 22:03 Not Given (Other Intervention Used): Dexamethasone 6 mg IV at bolus once [facility] 22:13 Drug: cefTRIAXone 1 grams [ceftriaxone 1 gram solution for injection] Route: IVPB; kas2 Infused Over: 30 mins; Site: left antecubital; 22:25 Not Given (Other Intervention Used): acetaZOLAMIDE 250 mg IV at calculated rate once mm11 23:20 Drug: acetaZOLAMIDE 500 mg [acetazolamide 250 mg tablet (2 tabs)] Route: PO; kas2 Intake: 21:54 IV: 1000.00ml; Total: 1000.00ml. kas2 Output: 04/04 07:25 Urine: 840.00ml (Voided); Total: 840.00ml. jrd RT: 04/03 21:09 ABG's drawn from left radial artery pressure held for 5 minutes no bleeding noted jh6 pressure bandage applied specimen sent pt. tolerated well. Order Results: Lab Order: Basic Metabolic Profile; SPEC'M 04/03/16 20:03 Test: GLUCOSE, FASTING; Value: 117; Range: 70-105; Abnormal: Above high normal; Units: MG/DL; Status: F Test: BLOOD UREA NITROGEN; Value: 21; Range: 7-18; Abnormal: Above high normal; Units: MG/DL; Status: F Test: CREATININE FOR GFR; Value: 0.92; Range: 0.70-1.30; Units: MG/DL; Status: F Test: GLOMERULAR FILTRATION RATE; Value: > 60.0; Range: >56; Status: F Test: SODIUM LEVEL; Value: 138; Range: 136-145; Units: MEQ/L; Status: F Test: POTASSIUM SERUM; Value: 4.3; Range: 3.5-5.1; Units: MEQ/L; Status: F Test: CHLORIDE LEVEL; Value: 110; Range: 98-107; Abnormal: Above high normal; Units: MEQ/L; Status: F Test: CARBON DIOXIDE LEVEL; Value: 18; Range: 21-32; Abnormal: Below low normal; Units: MEQ/L; Status: F Test: ANION GAP; Value: 10; Range: 8-16; Units: MEQ/L; Status: F Test: CALCIUM LEVEL; Value: 8.6; Range: 8.5-10.1; Units: MG/DL; Status: F Test Note: ; Units are mL/min/1.73 m2 Chronic Kidney Disease Staging per NKF: Stage I & II GFR >=60 Normal to Mildly Decreased Stage III GFR 30-59 Moderately Decreased Stage IV GFR 15-29 Severely Decreased Stage V GFR <15 Very Little GFR Left ESRD GFR <15 on [employer] DRAFTER Lab Order: CBC with Diff; SPEC'M 04/03/16 20:03 Test: WHITE BLOOD COUNT; Value: 16.7; Range: 4.0-10.0; Abnormal: Above high normal; Units: K/mm3; Status: F Test: RED BLOOD COUNT; Value: 5.37; Range: 4.30-6.10; Units: M/mm3; Status: F Test: HEMOGLOBIN; Value: 14.2; Range: 14.0-18.0; Units: g/dl; Status: F Test: HEMATOCRIT; Value: 43.7; Range: 42.0-52.0; Units: %; Status: F Test: MEAN CORPUSCULAR VOLUME; Value: 81.4; Range: 80.0-96.0; Units: fl; Status: F Test: MEAN CORPUSCULAR HEMOGLOBIN; Value: 26.4; Range: 27.0-33.0; Abnormal: Below low normal; Units: pg; Status: F Test: MEAN CORPUSCULAR HGB CONC; Value: 32.4; Range: 32.0-36.5; Units: g/dl; Status: F Test: RED CELL DISTRIBUTION WIDTH; Value: 14.5; Range: 11.5-14.5; Units: %; Status: F Test: PLATELET COUNT, AUTOMATED; Value: 276; Range: 150-450; Units: k/mm3; Status: F Test: NEUTROPHILS %; Value: 88.5; Range: 36.0-66.0; Abnormal: Above high normal; Units: %; Status: F Test: LYMPH %; Value: 7.3; Range: 24.0-44.0; Abnormal: Below low normal; Units: %; Status: F Test: MONO %; Value: 3.1; Range: 0.0-5.0; Units: %; Status: F Test: EOS %; Value: 0.2; Range: 0.0-3.0; Units: %; Status: F Test: BASO %; Value: 0.1; Range: 0.0-1.0; Units: %; Status: F Test: LARGE UNSTAINED CELL %; Value: 0.8; Range: 0.0-4.0; Units: %; Status: F Test: NEUTROPHILS #; Value: 14.8; Range: 1.8-7.7; Abnormal: Above high normal; Units: K/mm3; Status: F Test: LYMPH #; Value: 1.2; Range: 1.5-4.5; Abnormal: Below low normal; Units: K/mm3; Status: F Test: MONO #; Value: 0.5; Range: 0.0-0.8; Units: K/mm3; Status: F Test: EOS #; Value: 0.0; Range: 0.0-0.50; Units: K/mm3; Status: F Test: BASO #; Value: 0.0; Range: 0.0-0.2; Units: K/mm3; Status: F Test: LARGE UNSTAINED CELL #; Value: 0.1; Range: 0.0-0.4; Units: K/mm3; Status: F Lab Order: Cardiac Injury Profile; [facility] 04/03/16 20:03 Test: CPK CREATINE PHOSPHOKINASE; Value: 99; Range: 39-308; Units: U/L; Status: F Test: CK-MB VALUE MASS; Value: 1.2; Range: 0.0-3.6; Units: NG/ML; Status: F Test: MB/CK RELATIVE INDEX; Value: 1.21; Range: < OR =4; Status: F Test Note: ; DIAGNOSIS CRITERIA MMB ng/ml Relative Index (RI) NON-AMI < or = 5 N/A MATA ZONE > 5 < or = 4 AMI > 5 > 4 Lab Order: Troponin; [facility] 04/03/16 20:03 Test: TROPONIN I; Value: < 0.02; Range: < 0.10; Units: NG/ML; Status: F Test Note: ; Troponin I Reference Interval for [employer] LOCI: 99th Percentile= 0.00-0.045 ng/ml Risk Stratification: <= 0.10 ng/ml Decreased Risk for Adverse Clinical Events. 0.10-1.50 ng/ml Increased Risk for Adverse Clinical Events. Evaluation of additional criterion and/or repeat testing in 2-6 hours is suggested to rule out myocardial damage. >= 1.50 ng/ml Indicative of Myocardial Injury. Lab Order: -Arterial Blood Gas; [facility] 04/03/16 21:02 Test: ABG pH (ARTERIAL); Value: 7.332; Range: 7.350-7.450; Abnormal: Below low normal; Units: UNITS; Status: F Test: ABG PARTIAL PRESSURE CO2; Value: 34.2; Range: 35.0-45.0; Abnormal: Below low normal; Units: mmHg; Status: F Test: ABG PARTIAL PRESSURE O2; Value: 78.9; Range: 75.0-100.0; Units: mmHg; Status: F Test: ABG TOTAL CO2; Value: 18.8; Range: 22.0-29.0; Abnormal: Below low normal; Units: MEQ/L; Status: F Test: ABG HCO3; Value: 17.7; Range: 22.0-26.0; Abnormal: Below low normal; Units: MEQ/L; Status: F Test: ABG BASE EXCESS; Value: -7.2; Range: -2.0-2.0; Abnormal: Below low normal; Status: F Test: ABG STANDARD HCO3; Value: 18.6; Range: 22.0-26.0; Abnormal: Below low normal; Units: MEQ/L; Status: F Test: ABG O2 SATURATION; Value: 95.2; Range: 95.0-99.0; Units: %; Status: F Test: ABG DEVICE; Value: NASAL HANNA; Status: F Lab Order: Lactic Acid (Mata tube on ice); [facility]' 04/03/16 22:19 Test: LACTIC ACID SEPSIS PROTOCOL; Value: 0.7; Range: 0.4-2.0; Units: MMOL/L; Status: F Lab Order: CARDIAC MARKER PANEL; [facility]' 04/04/16 00:40 Test: CPK CREATINE PHOSPHOKINASE; Value: 79; Range: 39-308; Units: U/L; Status: F Test: CK-MB VALUE MASS; Value: 1.0; Range: 0.0-3.6; Units: NG/ML; Status: F Test: MB/CK RELATIVE INDEX; Value: 1.26; Range: < OR =4; Status: F Test: TROPONIN I; Value: < 0.02; Range: < 0.10; Units: NG/ML; Status: F Test Note: ; DIAGNOSIS CRITERIA MMB ng/ml Relative Index (RI) NON-AMI < or = 5 N/A MATA ZONE > 5 < or = 4 AMI > 5 > 4 Lab Order: C REACTIVE PROTEIN QUANTITATIV; [facility]/04[facility]16 06:38 Test: C REACTIVE PROTEIN QUANTITATIV; Value: 1.09; Range: 0.00-0.30; Abnormal: Above high normal; Units: MG/DL; Status: F Lab Order: COMPLETE BLOOD COUNT; [facility] 06:39 Test: WHITE BLOOD COUNT; Value: 15.2; Range: 4.0-10.0; Abnormal: Above high normal; Units: K/mm3; Status: F Test: RED BLOOD COUNT; Value: 5.06; Range: 4.30-6.10; Units: M/mm3; Status: F Test: HEMOGLOBIN; Value: 13.3; Range: 14.0-18.0; Abnormal: Below low normal; Units: g/dl; Status: F Test: HEMATOCRIT; Value: 41.4; Range: 42.0-52.0; Abnormal: Below low normal; Units: %; Status: F Test: MEAN CORPUSCULAR VOLUME; Value: 81.8; Range: 80.0-96.0; Units: fl; Status: F Test: MEAN CORPUSCULAR HEMOGLOBIN; Value: 26.2; Range: 27.0-33.0; Abnormal: Below low normal; Units: pg; Status: F Test: MEAN CORPUSCULAR HGB CONC; Value: 32.0; Range: 32.0-36.5; Units: g/dl; Status: F Test: RED CELL DISTRIBUTION WIDTH; Value: 14.7; Range: 11.5-14.5; Abnormal: Above high normal; Units: %; Status: F Test: PLATELET COUNT, AUTOMATED; Value: 268; Range: 150-450; Units: k/mm3; Status: F Lab Order: BASIC METABOLIC PROFILE; [facility]04/04[facility] 06:38 Test: GLUCOSE, FASTING; Value: 95; Range: 70-105; Units: MG/DL; Status: F Test: BLOOD UREA NITROGEN; Value: 18; Range: 7-18; Units: MG/DL; Status: F Test: CREATININE FOR GFR; Value: 0.81; Range: 0.70-1.30; Units: MG/DL; Status: F Test: GLOMERULAR FILTRATION RATE; Value: > 60.0; Range: >56; Status: F Test: SODIUM LEVEL; Value: 142; Range: 136-145; Units: MEQ/L; Status: F Test: POTASSIUM SERUM; Value: 4.0; Range: 3.5-5.1; Units: MEQ/L; Status: F Test: CHLORIDE LEVEL; Value: 116; Range: 98-107; Abnormal: Above high normal; Units: MEQ/L; Status: F Test: CARBON DIOXIDE LEVEL; Value: 17; Range: 21-32; Abnormal: Below low normal; Units: MEQ/L; Status: F Test: ANION GAP; Value: 9; Range: 8-16; Units: MEQ/L; Status: F Test: CALCIUM LEVEL; Value: 8.3; Range: 8.5-10.1; Abnormal: Below low normal; Units: MG/DL; Status: F Test Note: ; Units are mL/min/1.73 m2 Chronic Kidney Disease Staging per NKF: Stage I & II GFR >=60 Normal to Mildly Decreased Stage III GFR 30-59 Moderately Decreased Stage IV GFR 15-29 Severely Decreased Stage V GFR <15 Very Little GFR Left ESRD GFR <15 on [employer]RAF[employer] Lab Order: MAGNESIUM LEVEL; SPEC04/04/16 06:38 Test: MAGNESIUM LEVEL; Value: 2.3; Range: 1.8-2.4; Units: MG/DL; Status: F Lab Order: CARDIAC MARKER PANEL; SPEC'04/04/16 06:38 Test: CPK CREATINE PHOSPHOKINASE; Value: 78; Range: 39-308; Units: U/L; Status: F Test: CK-MB VALUE MASS; Value: 1.0; Range: 0.0-3.6; Units: NG/ML; Status: F Test: MB/CK RELATIVE INDEX; Value: 1.28; Range: < OR =4; Status: F Test: TROPONIN I; Value: < 0.02; Range: < 0.10; Units: NG/ML; Status: F Test Note: ; DIAGNOSIS CRITERIA MMB ng/ml Relative Index (RI) NON-AMI < or = 5 N/A MATA ZONE > 5 < or = 4 AMI > 5 > 4 Radiology Order: CT Head Without Contrast Test: CT Head Without Contrast REASON FOR EXAMINATION: Syncope; ; Reason for examination : Syncope; Comparison: CT head 12/28/2015; Technique:; CT head: Multiple axial images were obtained without contrast from the skull vertex to C1.; CT facial bones: Multiple contiguous axial CT images were also obtained through the facial bones at 2; .5 mm slice thickness without the use of intravenous contrast. 1.25 mm axial reformations were create; d from which sagittal and coronal reformations were performed to evaluate the orbital floors.; Findings:; No acute intracranial hemorrhage or evidence of acute transcortical ischemia. No suspicious intra-axi; al or extraction fluid collection, midline shift, or hydrocephalus.; Posterior Fossa: Unremarkable.; There is leftward deviated nasal deformity with soft tissue swelling, with bilateral nasal bone fract; ures with approximately 4.6 mm depression of the left, and extending to the nasal maxillary ridge on; the right. Small nondisplaced anterior right lamina papyracea fracture is also noted on axial series; 301, image 38-39.; Ethmoidal sinus mucosal thickening with small fluid levels in right frontal and mastoid sinuses with; hemorrhagic products.; There is right superomedial orbital compartment retrobulbar stranding with thickening of the medial r; ectus and oblique muscles. The optic globes appear intact.; Inner ear cavities appear unremarkable.; IMPRESSION:; ; 1. No acute intracranial hemorrhage.; 2. Leftward deviated nasal deformity with soft tissue swelling, with bilateral nasal bone fractures w; ith approximately 4.6 mm depression of the left, and extending to the nasal maxillary ridge on the ri; ght. Small nondisplaced anterior right lamina papyracea fracture also noted.; 3. Right superomedial orbital compartment retrobulbar stranding with thickening of the medial rectus; and oblique muscles. Ophthalmologic consultation should be considered.; ; Radiology Order: Chest, 1 View Test: Chest, 1 View REASON FOR EXAMINATION: Syncope; Clinical: Syncope .; ; Comparison: 02/01/2016 .; ; Technique: PA and lateral.; ; Findings:; The mediastinum and cardiac silhouette are normal. The lung ross demonstrate; chronic stable changes without acute consolidation, effusion, or pneumothorax.; The skeletal structures are intact and normal.; ; Impression:; 1. No acute cardiopulmonary process.; ; ; Signed by; Alvarez Hart MD 04/04/2016 01:31 A; Radiology Order: CT Maxilofacial W/out Contrast Test: CT Maxilofacial W/out Contrast REASON FOR EXAMINATION: recent sinus surgery; ; Reason for examination : Syncope; Comparison: CT head 12/28/2015; Technique:; CT head: Multiple axial images were obtained without contrast from the skull vertex to C1.; CT facial bones: Multiple contiguous axial CT images were also obtained through the facial bones at 2; .5 mm slice thickness without the use of intravenous contrast. 1.25 mm axial reformations were create; d from which sagittal and coronal reformations were performed to evaluate the orbital floors.; Findings:; No acute intracranial hemorrhage or evidence of acute transcortical ischemia. No suspicious intra-axi; al or extraction fluid collection, midline shift, or hydrocephalus.; Posterior Fossa: Unremarkable.; There is leftward deviated nasal deformity with soft tissue swelling, with bilateral nasal bone fract; ures with approximately 4.6 mm depression of the left, and extending to the nasal maxillary ridge on; the right. Small nondisplaced anterior right lamina papyracea fracture is also noted on axial series; 301, image 38-39.; Ethmoidal sinus mucosal thickening with small fluid levels in right frontal and mastoid sinuses with; hemorrhagic products.; There is right superomedial orbital compartment retrobulbar stranding with thickening of the medial r; ectus and oblique muscles. The optic globes appear intact.; Inner ear cavities appear unremarkable.; IMPRESSION:; ; 1. No acute intracranial hemorrhage.; 2. Leftward deviated nasal deformity with soft tissue swelling, with bilateral nasal bone fractures w; ith approximately 4.6 mm depression of the left, and extending to the nasal maxillary ridge on the ri; ght. Small nondisplaced anterior right lamina papyracea fracture also noted.; 3. Right superomedial orbital compartment retrobulbar stranding with thickening of the medial rectus; and oblique muscles. Ophthalmologic consultation should be considered.; ; Radiology Order: Duplex,carotid (complete) Test: Duplex,carotid (complete) REASON FOR EXAMINATION: syncope; Clinical: Syncope .; ; Technique: Mata scale and color Doppler evaluation using linear high frequency; transducer; ; Findings:; Two-dimensional mata scale and color images demonstrate mild symmetric mixed; plaquing along the common carotid arteries extending to the proximal internal; carotid arteries with normal laminar flow and no significant narrowing. Color; Doppler interrogation demonstrates normal arterial wave patterns and velocities; with no significant spectral broadening. Normal flow direction is appreciated in; the left vertebral artery while the right vertebral artery is not visualized.; ; RIGHT (cm/s) LEFT (cm/s); ; ICA peak systolic velocity 66.3 44.9; ICA diastolic velocity 22.9 21.9; ECA peak systolic velocity 65.1 56.5; CCA peak systolic velocity 84.3 76.8; ICA/CCA ratio 0.79 0.58; ; Impression:; 1. No hemodynamically significant areas of narrowing or stenosis appreciated.; Based on set standards narrowing falls within the less than 50% range.; 2. Normal left vertebral artery. Right vertebral artery not visualized.; ; ; Signed by; Alvarez Hart MD 04/04/2016 05:03 A; Outcome: 22:09 Decision to Hospitalize by Provider. [id number] 04/04 12:11 Patient left the ED. kr3 Signatures: Dispatcher [employer] EDMS Tayler Pastor, [employer] [facility] Sonam Adams,RN RN kr3 Laura Ceja Matthew, DO mm11 Hakan Dia6 Gisela Hughes RN RN sls1 Terrie Carrillo, [facility] [employer] [facility] Chris Bhat PCA DIRECTOR [employer]ATE[employer]ANNING Tiffanie CaoRN RN kas2 MTDD
--- NOTE | 2016-04-04 12:59 | REP ---
MRI BRAIN WITHOUT CONTRAST: 04/04/2016. Clinical history: Dizzy, syncope, facial/nasal surgery 04/02/2016 with details as previously noted. Comparison CT brain 04/03/2016, CT maxillofacial 04/03/2016, 04/02/2016. Technique: Sagittal T1 with axial T1, T2, FLAIR, gradient echo and diffusion weighted images with ADC mapping sequence. Findings: The axial images show lateral ventricles symmetric and without dilatation or displacement from the midline. The third and fourth ventricles were unremarkable. Basal ganglia were symmetric. Cortical stripe is preserved. There is fluid level in the right frontal sinus and contiguous with that over the frontal convexity and roof of the right orbit. There is a fluid collection. There is some hyperintensity on T1 peripheral to this suggesting small amount of blood which is known from the intraorbital hematoma. This is seen layering on the frontal convexity and dural surface of the roof of the orbit. The medial rectus muscle on the right is seen. There is less edema or swelling adjacent to it in the region of the evacuated hematoma seen on original CT maxillofacial on 04/02/2016. There is opacification of ethmoid air cells from the known fracture of the lamina papyracea on the right with anterior ethmoids on the left also showing some mucosal thickening and opacity. Deviated septum towards the left. The globes are intact. There is still some proptosis on the right compared to the left. In the middle cranial fossa, there is an arachnoid cyst in the floor on the left side unchanged. Brainstem and cerebellum unremarkable. There is no vascular territory infarct, mass or mass effect. No other intracranial bleed. The diffusion weighted images and ADC mapping sequences show no evidence of acute ischemia or restricted water diffusion. There is some dark signal representing the blood in the frontal convexity on that right side. This is in the dural space with no intraparenchymal or other intracranial bleed. The seventh/eighth cranial nerve complexes are intact. Mastoids show some minor mucosal thickening on the right. The corpus callosum, optic chiasm and pituitary were unremarkable. Impression: 1. An air-fluid level in the right frontal sinus with edema and increased signal about the right orbit with some proptosis of the hematoma peripheral to the medial rectus muscle on the right side, decreased compared to CT maxillofacial on 04/02. There is some blood at the frontal convexity about the right hemisphere related to the fracture of the lamina papyracea and floor of the right frontal sinus. No other significant finding. Signed by Champ Bales MD 04/04/2016 05:07 P
--- NOTE | 2016-04-04 13:01 | REP ---
MRA BRAIN WITHOUT CONTRAST: 04/04/2016. Clinical history: Syncope. Comparison: MRI brain 04/04/2016, CT brain 04/03/2016. Technique: 3-D [id number] gradient echo images with MIP reformatting and rotational display of the volume reconstructions about the longitudinal and horizontal axis of the brain. All source images are reviewed. Findings: There is a dominant left vertebral artery contribution to the basilar artery as anatomic variation. Some mild short segment stenosis of the distal basilar artery without basilar aneurysm or basilar tip aneurysm. Both posterior cerebral arteries show normal origin from the basilar tip. They have symmetric supply to the posterior fossa. Superior cerebellar arteries are symmetric and unremarkable. The right internal carotid through the skull base to the carotid siphon shows no stenosis or aneurysm. The supraclinoid carotid, A1, M1 segments and the anterior and middle cerebral artery branches were unremarkable. The left CP internal carotid through the skull base to the carotid siphon shows no stenosis or aneurysm. The supraclinoid carotid, A1, M1 segments and the anterior and middle cerebral artery branches were also unremarkable. Source images confirm these findings with no acute abnormality. Impression: 1. Negative MR angiogram of the brain for vascular malformation, mass effect, aneurysm, significant stenosis, vessel cutoff or other significant finding. Signed by Champ Bales MD 04/04/2016 05:07 P
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
[2016-04-04] MEDS: SODIUM CHLORIDE NASAL 0.65% SPRAY BTL (OCEAN) SCH (21:41)
[2016-04-04] MEDS: traMADol 50 MG TAB PO PRN (22:01)
[2016-04-05] VITALS (22 sets, daily range): BP systolic 107–130; BP diastolic 59–90; O2SAT 93–96
[2016-04-05] MEDS: dexameTHASONE 20 MG/5 ML VIAL (J1100) IV SCH ×3 (05:09→21:51)
[2016-04-05 05:43] LABS: MEAN CORPUSCULAR HEMOGLOBIN 26.1 pg (27.0-33.0); MEAN CORPUSCULAR HGB CONC 31.8 g/dl (32.0-36.5); MEAN CORPUSCULAR VOLUME 82.3 fl (80.0-96.0); RED CELL DISTRIBUTION WIDTH 14.3 % (11.5-14.5); WHITE BLOOD COUNT 9.6 K/mm3 (4.0-10.0)
[2016-04-05 05:57] LABS: ANION GAP 12 MEQ/L (8-16); BLOOD UREA NITROGEN 25 MG/DL (7-18); CALCIUM LEVEL 8.6 MG/DL (8.5-10.1); CARBON DIOXIDE LEVEL 16 MEQ/L (21-32); CHLORIDE LEVEL 110 MEQ/L (98-107); CREATININE FOR GFR 1.03 MG/DL (0.70-1.30); GLOMERULAR FILTRATION RATE > 60.0 (>56); GLUCOSE, FASTING 135 MG/DL (70-105); MAGNESIUM LEVEL 2.2 MG/DL (1.8-2.4); POTASSIUM SERUM 4.1 MEQ/L (3.5-5.1); SODIUM LEVEL 138 MEQ/L (136-145)
[2016-04-05] MEDS: CEFTAROLINE FOSAMIL 600 MG in D5W MINI-BAG PLUS 50 ML IV SCH ×2 (08:28→21:52)
[2016-04-05] MEDS: TOBRADEX OPHTH OINT 3.5 GM OD SCH ×4 (08:29→20:36)
[2016-04-05] MEDS: SODIUM CHLORIDE NASAL 0.65% SPRAY BTL (OCEAN) SCH ×3 (08:29→20:36)
[2016-04-05] MEDS: CETIRIZINE (ZyrTEC) 10 MG TAB PO SCH (08:29)
[2016-04-05] MEDS: AcetaZOLAMIDE 250 MG TAB PO SCH ×3 (08:30→21:52)
[2016-04-05] MEDS: SENOKOT S TAB PO SCH ×2 (08:30→21:00)
--- NOTE | 2016-04-05 08:35 | ECHO ---
DATE OF PROCEDURE: 04/04/2016 AGE: 50 GENDER: Male REFERRING PHYSICIAN: Dr. Shy Vizcarra. HEIGHT: 72 inches. WEIGHT: 174 pounds. BODY SURFACE AREA: 2.0 sq m. INPATIENT: U Room 3228. INDICATION: Syncope. MEASUREMENTS: 2D MEASUREMENTS: RV - 4.6 cm LV- 4.2 cm Septum - 0.9 cm Posterior wall - 0.8 cm Aortic root - 3.2 cm LA - 2.7 cm LVEF - 65% DOPPLER MEASUREMENTS: AV - 1.43 m/s LVOT - 0.87 m/s LVOT diameter - 2.3 cm MV-E: 77 A: 62 EA ratio 1.2 Early mitral deacceleration time - 218 ms E-prime - 10.5 A-prime - 11 E/E prime ratio 7.3 PAWP - 10 mmHg PV - 0.8 m/s Pulmonary artery acceleration time - 88 ms RVSP - 50 mmHg IVC - 1.5 cm COMMENTS: Normal sinus rhythm/sinus bradycardia without intraventricular conduction disturbance. Somewhat technically challenging but diagnostically useful information was still obtained. Normal left heart chamber sizes. At least mild to moderately dilated right heart chambers. LV wall thickness was normal. On real-time imaging from the parasternal and apical projections, there appeared to be a proximal septal wall motion abnormality suspected to be related to right ventricular pressure overload but other wall motion was normal. Normal-appearing mitral valvular apparatus and leaflet excursion with no posterior systolic buckling. Three equal size aortic cusps of normal thickness and cusp separation. Normal aortic root size. No apparent intracardiac mass or pericardial effusion. Color flow Doppler study taken from the parasternal and apical projection showed very mild mitral and tricuspid but no aortic insufficiency. Guided continuous wave Doppler of his aortic valve showed a normal peak systolic velocity against LV outflow tract obstruction. Pulsed and continuous wave Doppler of his LV inflow tract taken from the apical four-chamber projection shows normal diastolic filling velocities against mitral stenosis. The filling pattern was also normal against LV diastolic dysfunction. Estimated mean left atrial pressure was within normal limits. Pulsed and continuous wave Doppler of his pulmonary trunk showed a normal peak systolic velocity against RV outflow tract obstruction. His pulmonary artery acceleration time was abbreviated consistent with an elevated pulmonary vascular resistance. Guided continuous wave Doppler of his tricuspid valve allowed our estimation of his right ventricular systolic pressure (moderately increased). IVC size was normal with normal respiratory collapse against an elevated central venous pressure at this time. CONCLUSIONS: Normal left ventricular size, wall thickness with proximal septal wall motion abnormality believed to be related to right ventricular pressure overload. Preserved global left ventricular systolic function. Normal left atrial size and Doppler assessment of LV diastolic function and estimated mean left atrial pressure. Mild to moderately dilated right heart chambers with Doppler evidence of moderate pulmonary hypertension. Normal IVC size and collapse against an elevated central venous pressure. Normal appearing and functioning valvular apparatus. No intracardiac mass or pericardial effusion.
--- NOTE | 2016-04-05 09:00 | ECGEPIP ---
Stationary ECG Study [facility] - ED Test Date: 2016-04-03 Pat Name: HOLLIS CONNELLY Department: Room: [place] [address] Gender: M [employer] Paper: nathaniel : 1965 Requested By: NUVIA Lunsford Order Number: [id number] Reading MD: Nita Barnett Measurements Intervals [place] Rate: 81 P: 64 MD: 146 QRS: 53 QRSD: 107 T: 21 QT: 347 QTc: 405 Interpretive Statements SINUS RHYTHM MODERATE VOLTAGE CRITERIA FOR LVH, CONSIDER NORMAL VARIANT DECREASED RATE 02/01/16 Electronically Signed On 04-05-2016 8:59:37 EST by Nita Barnett
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
--- NOTE | 2016-04-05 10:52 | CR ---
DATE OF CONSULTATION: 04/04/2016 REASON FOR CONSULTATION: Right eye pain. HISTORY OF PRESENT ILLNESS: This is a 50-year-old male status post septorhinoplasty on 04/02/2016 with subsequent right orbital hemorrhage requiring a right superior and inferior canthotomy cantholysis. Patient was discharged in the afternoon on 04/03/2016 with great improvement of ocular symptoms and soft tissue swelling. He returned to the emergency department on 04/03/2016 at approximately 9 p.m. with complaints of fainting and was diagnosed with syncope. He denies any loss of consciousness or falls or head trauma. There was some mild eye pain at that time and a repeat CT head and ophthalmic consultation was requested. Patient was seen and examined on 04/04/2016 at 6:45 in the morning. Patient admits to a dull right eye ache with no pain on eye movement and feeling much improved from the prior day. Visual acuity uncorrected count finger at 5 feet both eyes IOP by Antoine-Pen was 28 in the right eye and 23 in the left eye. Confrontational visual ross are full to count fingers both eyes with the need for right eye lid elevation due to soft tissue swelling. Extraocular motions were grossly intact OD. There is some mild restriction on up gaze likely secondary to presence of a right inferior orbital fracture and soft tissue swelling. Pupils 3 mm in dark, 2 mm in light with no APD both eyes. At bedside, pen light exam was performed. Lids, lashes and adnexa are 2-3+ ecchymosis on the right upper and lower eye lids with moderate upper eye lid edema. Conjunctiva and sclera there is 2+subconjunctival hemorrhage unchanged from the prior exam. Cornea is clear. Anterior chamber (AC) is deep and quiet with no hyphema and no hypopyon. Lens, there is nuclear sclerosis. Iris is brown and flat. Imaging: CT maxillofacial performed on 04/03/2016 revealed no acute intracranial hemorrhage with some left nasal deformity and soft tissue swelling. Small nondisplaced right anterior lamina papyracea fracture. There is right superior medial orbital stranding and some thickening of the medial rectus and oblique muscles. There is no comparison read to the image from 04/02/2016. CT that was performed on the previous day, 04/02/2016, which revealed acute fractures of the nasal bones bilaterally, fracture of the medial orbital wall anteriorly, on the floor of the frontal sinus of the right side is a periorbital hematoma and there is proptosis of the right globe with the hematoma peripheral to the medial rectus muscle. By my read, these two images are largely unchanged except there is moderate improvement of soft tissue swelling and this was also confirmed on 04/04/2016 after reviewing with the Radiologist. ASSESSMENT AND PLAN: 1. 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 2. Subconjunctival Hemorrhage 3. Right superior oblique and right medial rectus thickening. 4. Status post septorhinoplasty. 5. Syncope. PLAN: Continue with IV Decadron every 8, Augmentin IV, Diamox by mouth three times daily, ice packs every 4 hours, TobraDex ointment to the right eye every 6 hours, tape tarsorrhaphy at bedtime. The patient has an unchanged ocular examination at this time from comparison exams on 04/03/2016. Upon discharge, this patient needs evaluation with orbital surgery. Likely this will require him traveling to [place] for evaluation of the multiple orbital fractures. He also will need reconstruction and repositioning of his right upper and lower lateral canthus post-canthotomy cantholysis sometime in the future after there is improvement of the periorbital swelling. I will continue to see this patient when he is in the hospital but he needs to have arrangements for this patient to followup with orbital surgery at discharge in [place]. One recommendation is Dr. Karsten Celmons. Please call if there are any changes in the patient's condition or if there are any questions regarding this consultation. PEMA
[2016-04-05] MEDS: traMADol 50 MG TAB PO PRN ×2 (12:24→20:29)
[2016-04-05] MEDS ORDERED: SLF 3 ML SYR IV PRN (13:00)
[2016-04-05] MEDS: SLF 3 ML SYR IV SCH ×2 (14:17→21:52)
--- NOTE | 2016-04-05 15:16 | CR ---
DATE OF CONSULTATION: 04/04/2016 CHIEF COMPLAINT: Right orbital pain and status post septorhinoplasty. HISTORY OF PRESENT ILLNESS: This 50-year-old man underwent septorhinoplasty on 04/02/2016 and who developed right orbital hemorrhage postoperatively requiring lateral canthotomy. The patient responded to Decadron, Diamox and TobraDex therapy with return of the extraocular motion and visual acuity. As such, he was successfully discharged the following day on 04/03/2016. In the evening on the day of discharge, the patient was noted to have a syncopal episode. As such, he was admitted to the hospital for evaluation of the syncope. The patient complains of feeling tired. He denies clear rhinorrhea, active epistaxis, or facial paralysis. CT of the head showed no evidence of acute intracranial hemorrhage. CT of the sinuses revealed bilateral nasal bone fractures with a small amount displaced anteriorly of the right fracture. At this time, the patient has been placed on Decadron, TobraDex, and ceftaroline. PHYSICAL EXAMINATION: On examination today, the patient appeared to be in no acute distress. Right periorbital ecchymosis was noted. Soft tissue swelling of the nasal dorsum was noted. Deviation of the was noted. Small dry clots in both nostrils with no evidence of clear rhinorrhea. Pupils were equal and reactive. Extraocular motions were intact and full. Oral examination showed moist mucosa with fresh blood on the posterior oropharyngeal wall. Neck was supple with trachea midline. IMPRESSION/PLAN: This is a 50-year-old man status post rhinoplasty with postoperative right orbital hemorrhage, has been admitted for workup of the syncope. I am in agreement with the management plan per ophthalmology, as well as hospitalist. Their inputs are much appreciated. As the patient cannot have any nasal packing in the nose, I have suggested the use of nasal saline two sprays per nostril three times a day. The patient will be continued to be followed by the ENT service while he is in the hospital. He also has a followup appointment with me in my office at the time of discharge.
--- NOTE | 2016-04-05 22:25 | CR ---
DATE OF CONSULTATION: 04/05/2016 SUBJECTIVE: The patient is seen and examined at the bedside. The patient complains of a dull right ache, but denies pain. No nausea or vomiting. No change in vision. No discharge. He is currently undergoing a syncope workup. Apparently had physical therapy today with some difficulty. Exam: Visual acuity when corrected, count fingers at five feet both eyes. Intraocular pressure was measured by finger palpation and found to be within normal limits of both eyes. Confrontation of visual ross was full, could count fingers both eyes. Pupils 4 mm down to 2 mm in light. No APD both eyes, and both are round and regular and equal. Extraocular movements are full. No restriction today, much improved from prior exams. both eyes. Lids, lashes and adnexa are 2-3+ ecchymosis. Has improved swelling of the upper eyelid today and improved swelling of the lower eyelid, the patient is status post canthotomy cantholysis. Conjunctiva and sclera 2+ and subconjunctival hemorrhage. No ecchymosis today. Anterior chamber (AC) is deep and quiet. Lens has nuclear sclerosis. Iris is brown and flat. CT results were reviewed. Studies on 04/02 and 04/03/2016, were compared. Essentially, these are unchanged with some mild improvement over the overlying soft tissue structures. There is a right superior oblique and right medial rectus thickening with some hematoma and stranding. ASSESSMENT AND PLAN: 1. 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 2. Right superior oblique and right medial rectus thickening. 3 Subconjunctival hemorrhage PLAN: 1. Continue current therapy on Decadron, Augmentin, and Diamox. 2. Continue with TobraDex right eye every six hours to prevent exposure keratopathy. 3. Ice packs every four hours. 4. Tape tarsorrhaphy at bedtime. Please place ointment in before. This patient needs evaluation with orbital surgeon or ENT who would be willing to evaluate the patient's multiple orbital fractures. At this time, the eye is stable and there is much improvement of the conjunctival swelling and extraocular movement indicating improvement of the orbital compartmentn syndrome. Again, the patient could see an orbital surgeon in [place], Dr. Karsten Allred, upon discharge. I will continue to follow the patient while he is hospitalized and re-examine the patient on 04/08/2016, or sooner if there is any change in the patient's ocular standings. Please call as soon as possible if there are any questions or any change in the patient's condition. PEMA
[2016-04-06] VITALS (13 sets, daily range): BP systolic 119–160; BP diastolic 69–95; O2SAT 94–95
[2016-04-06] MEDS: SLF 3 ML SYR IV SCH ×3 (05:27→20:33)
[2016-04-06] MEDS: dexameTHASONE 20 MG/5 ML VIAL (J1100) IV SCH ×3 (05:27→20:32)
[2016-04-06] MEDS: traMADol 50 MG TAB PO PRN (05:27)
[2016-04-06 05:52] LABS: MEAN CORPUSCULAR HEMOGLOBIN 26.3 pg (27.0-33.0); MEAN CORPUSCULAR HGB CONC 31.9 g/dl (32.0-36.5); MEAN CORPUSCULAR VOLUME 82.4 fl (80.0-96.0); RED CELL DISTRIBUTION WIDTH 14.4 % (11.5-14.5); WHITE BLOOD COUNT 14.8 K/mm3 (4.0-10.0)
[2016-04-06 06:00] LABS: ANION GAP 12 MEQ/L (8-16); BLOOD UREA NITROGEN 23 MG/DL (7-18); CALCIUM LEVEL 8.3 MG/DL (8.5-10.1); CARBON DIOXIDE LEVEL 17 MEQ/L (21-32); CHLORIDE LEVEL 109 MEQ/L (98-107); CREATININE FOR GFR 0.94 MG/DL (0.70-1.30); GLOMERULAR FILTRATION RATE > 60.0 (>56); GLUCOSE, FASTING 134 MG/DL (70-105); MAGNESIUM LEVEL 2.1 MG/DL (1.8-2.4); POTASSIUM SERUM 3.9 MEQ/L (3.5-5.1); SODIUM LEVEL 138 MEQ/L (136-145)
[2016-04-06] MEDS: AcetaZOLAMIDE 250 MG TAB PO SCH ×3 (08:43→20:33)
[2016-04-06] MEDS: CETIRIZINE (ZyrTEC) 10 MG TAB PO SCH (08:43)
[2016-04-06] MEDS: SENOKOT S TAB PO SCH ×2 (08:43→20:26)
[2016-04-06] MEDS: CEFTAROLINE FOSAMIL 600 MG in D5W MINI-BAG PLUS 50 ML IV SCH ×2 (08:43→20:33)
[2016-04-06] MEDS: SODIUM CHLORIDE NASAL 0.65% SPRAY BTL (OCEAN) SCH ×3 (08:44→20:33)
[2016-04-06] MEDS: TOBRADEX OPHTH OINT 3.5 GM OD SCH ×4 (08:44→20:32)
--- NOTE | 2016-04-06 10:28 | IPN ---
DATE: 04/06/2016 50-year-old seen at bedside, resting comfortably. He does, however, still has complaint of pain in the right eye. This is intermittent and he feels that sometimes the pain medication is quite adequate. Appreciate consultation by Dr. Shook and Dr. Austin yesterday. I did have an opportunity to discuss with Dr. Solis who is planning on doing a loop recorder at the beginning of next week. OBJECTIVE: Temperature 96.4, pulse 64, respiratory rate is 18, blood pressure 137/69, SpO2 is 94% on room air. In general, the patient appears to be in no acute distress. He is alert. HEENT: The eye is swollen with ecchymosis. Left eye is clear. The nasal packing is in place. No acute bleeding. Throat clear. LUNGS: Clear. HEART: Regular rate and rhythm. ABDOMEN: Soft. EXTREMITIES: No edema or calf tenderness. LABS: White count 14.8, hemoglobin 13. 9, platelets 299. Sodium 138, potassium 3.9, chloride 109, bicarbonate 17, anion gap 12, BUN 23, creatinine is 0.94, glucose 134, magnesium 2.1. ASSESSMENT/PLAN: 1. Syncopal episode: 2D echo shows no acute issues. MRI/MRA are negative. Carotid ultrasound is negative. No acute issues on telemetry. I did discuss this with Dr. Solis who is planning on a loop recorder at the beginning of the week. 2. Right orbital hemorrhage associated with nasal fracture: Appreciate ENT and ophthalmology input. Continue on Diamox, Decadron and current antibiotics. 3. Coronary artery disease by history. No findings on EKG other than a vague slight inversion of T-wave in lead III. Cardiac enzymes unremarkable and workup has been negative as outlined above. 4. Prior history of cerebral vascular accident. No neurologic issues currently, but will continue with neural checks. 5. Obstructive sleep apnea: The patient is unable to tolerate CPAP currently due to nasal fracture. Will continue to follow with obstructive sleep apnea precautions. 6. Deep venous thrombosis prophylaxis: Thromboembolic deterrent stockings (TEDS) and sequentials. DISPOSITION: The patient still had some unsteadiness. We will see how he does with physical therapy through the weekend. Continue him on telemetry. Anticipate discharge home Friday or Friday perhaps directly to Dr. Solis's office for loop recorder.
[2016-04-06] MEDS ORDERED: oxyCODONE 5MG TAB PO PRN (11:30)
[2016-04-06] MEDS: oxyCODONE 5MG TAB PO PRN ×2 (11:40→18:13)
--- NOTE | 2016-04-06 13:11 | EDDOCDS ---
Physician Documentation [facility] Name: Abhijit Sandoval Age: 50 yrs Sex: Male : 1965 Arrival Date: 04/03/2016 Time: 18:57 Bed Admit Hold Private MD: Juanito Hamm MD Disposition: 04/03/16 22:09 Hospitalization ordered by Shy Vizcarra for Inpatient Admission. Preliminary diagnosis are Syncope and collapse - with EKG changes, Visual discomfort, bilateral. - Bed requested for PCU. - Status is Inpatient Admission. kr3 - Condition is Stable. - Problem is an acute exacerbation. - Symptoms have improved. Historical: - Allergies: asparagus; Bees; Grape Jelly; Non-dairy creamer; steroids ( heart rate high); tylenolsyncopal episode that last for 24-48 hours; - Home Meds: 1. amoxicillin 875 mg Oral tab 1 tab every 12 hours finished yesterday 2. aspirin 81 mg Oral TbEC takes once every 3 days every other day 3. naproxen 500 mg Oral tab 1 tab every 12 hours 4. nitroglycerin 0.4 mg SL subl 1 tab as needed 5. Proventil HFA 90 mcg/actuation inhalation HFAA 2 puffs every 12 hours as needed 6. saline nasal spray------2x daily 7. Ultram 50 mg Oral tab every 6 hours as needed - PMHx: CAD; CVAX2; fractured nose---2016; hyperlipidemia; OH; Sleep Apnea w/ CPAP; - PSHx: right knee surgery; Hernia repair; - Social history: Smoking status: Patient uses tobacco products, light tobacco smoker. No barriers to communication noted, The patient speaks fluent Japanese. - : The pt / caregiver states he / she is not on anticoagulants. Home medication list is obtained from the patient. - Exposure Risk Screening:: None identified. Vital Signs: 04/03 19:05 BP 132 / 84 (auto/); kas2 19:07 Pulse 86 MON; Pulse Ox 96% ; kas2 19:11 BP 132 / 84; Pulse 79; Resp 18; Temp 97.3(O); Pulse Ox 96% on R/A; Weight 78.93 kg / kas2 174.01 lbs; Height 6 ft. 0 in. (182.88 cm); Pain 6/10; 20:01 BP 128 / 78 (auto/); kas2 20:01 Pulse 72 MON; Pulse Ox 97% ; kas2 20:11 BP 124 / 76 (auto/); kas2 20:11 Pulse 68 MON; Pulse Ox 95% ; kas2 20:16 Resp 18; kas2 20:16 BP 117 / 73 (auto/); kas2 20:16 Pulse 74 MON; Pulse Ox 95% ; kas2 20:25 Resp 20; kas2 20:31 BP 121 / 76 (auto/); kas2 20:31 Pulse 68 MON; Pulse Ox 96% ; kas2 20:46 BP 120 / 75 (auto/); kas2 20:46 Pulse 70 MON; Pulse Ox 97% ; kas2 21:01 BP 114 / 71 (auto/); kas2 21:01 Pulse 68 MON; Pulse Ox 97% ; kas2 21:16 BP 114 / 72 (auto/); kas2 21:16 Pulse 64 MON; Pulse Ox 97% ; kas2 21:31 BP 111 / 71 (auto/); kas2 21:31 Pulse 74 MON; Pulse Ox 96% ; kas2 21:46 BP 104 / 62 (auto/); kas2 21:46 Pulse 70 MON; Pulse Ox 95% ; kas2 21:54 BP 114 / 72; Pulse 64; Resp 18; Pulse Ox 96% on R/A; Pain 0/10; kas2 22:01 BP 119 / 72 (auto/); kas2 22:01 Pulse 64 MON; Pulse Ox 98% ; kas2 22:31 BP 137 / 93 (auto/); kas2 22:31 Pulse 66 MON; Pulse Ox 97% ; kas2 22:46 BP 133 / 87 (auto/); kas2 22:46 Pulse 66 MON; Pulse Ox 96% ; kas2 23:01 BP 132 / 86 (auto/); kas2 23:01 Pulse 60 MON; Pulse Ox 97% ; kas2 23:16 BP 126 / 81 (auto/); kas2 23:16 Pulse 64 MON; Pulse Ox 97% ; kas2 23:21 Resp 18; Temp 98.2(O); Pain 0/10; kas2 23:31 BP 133 / 82 (auto/); kas2 23:31 Pulse 60 MON; Pulse Ox 97% ; kas2 23:46 BP 130 / 82 (auto/); kas2 23:46 Pulse 74 MON; Pulse Ox 97% ; [facility] 02 00:01 BP 126 / 79 (auto/); [facility] 00:01 Pulse 60 MON; Pulse Ox 97% ; [facility] 00:16 BP 127 / 81 (auto/); [facility] 00:16 Pulse 64 MON; Pulse Ox 97% ; [facility] 00:31 BP 123 / 77 (auto/); [facility] 00:31 Pulse 62 MON; Pulse Ox 97% ; [facility] 00:34 Resp 20; Temp 97.9(O); Pain 0/10; [facility] 04/03 19:11 Body Mass Index 23.60 (78.93 kg, 182.88 cm) [facility] MDM: 04/03 19:08 ECG WITH READING ER PHYS+CARDIAG ordered. EDMS 19:38 [employer] Lead/Pulse Ox/q 15 min VS ordered. mm11 19:38 Accucheck ordered. mm11 19:38 IV Saline Lock ordered. mm11 19:38 Rhythm Strip to chart ordered. mm11 19:38 NS 0.9% 1000 ml IV at bolus once ordered. mm11 19:38 Diazepam 2 mg IVP once ordered. mm11 19:38 morphine 4 mg IVP every 30 minutes; Document pain score/vitals after each dose (Hold if mm11 SBP < 90mmHg) x2 ordered. 19:38 Ondansetron 4 mg IVP once ordered. mm11 19:39 Basic Metabolic Profile Ordered. EDMS 19:39 CBC with Diff Ordered. EDMS 19:39 Cardiac Injury Profile Ordered. EDMS 19:39 Troponin Ordered. EDMS 19:40 Chest, 1 View Ordered. EDMS 19:40 CT Head Without Contrast Ordered. EDMS 19:40 CT Maxilofacial W/out Contrast Ordered. EDMS 20:30 Financial registration complete. zo 20:33 [facility] Payment Agreement was scanned into [employer] and attached to record. zo 20:42 Basic Metabolic Profile Reviewed. mm11 20:42 CBC with Diff Reviewed. mm11 20:42 Cardiac Injury Profile Reviewed. mm11 20:42 Troponin Reviewed. mm11 20:43 Call Respiratory ordered. mm11 20:43 -Arterial Blood Gas Ordered. EDMS 20:46 Call Respiratory complete. kb5 21:35 -Arterial Blood Gas Reviewed. mm11 21:35 CT Head Without Contrast Reviewed. mm11 21:35 CT Maxilofacial W/out Contrast Reviewed. mm11 21:57 Dexamethasone 6 mg IV at bolus once ordered. mm11 21:57 acetaZOLAMIDE 250 mg IV at calculated rate once ordered. mm11 21:59 cefTRIAXone 1 grams IVPB once over 30 mins; dilute in 50mL of NS or D5W ordered. mm11 22:00 BED REQUEST+ADM ordered. EDMS 22:01 Lactic Acid (Mata tube on ice) Ordered. EDMS 22:25 acetaZOLAMIDE 500 mg PO once ordered. mm11 22:57 Lactic Acid (Mata tube on ice) Reviewed. mm11 23:08 ECHOCARD,DOPPLER/COLOR FLOW ordered. EDMS 23:08 CARDIAC MARKER PANEL Ordered. EDMS 23:09 C REACTIVE PROTEIN QUANTITATIV Ordered. EDMS 23:09 COMPLETE BLOOD COUNT Ordered. EDMS 23:09 BASIC METABOLIC PROFILE Ordered. EDMS 23:09 MAGNESIUM LEVEL Ordered. EDMS 23:09 BLOOD CULTURES Ordered. EDMS 23:09 BLOOD CULTURES Ordered. EDMS 23:11 PHYSICAL THERAPY EVAL & TREAT ordered. EDMS 23:15 Admission / Observation Status ordered. EDMS 23:15 LOW FAT LOW CHOLESTEROL DIET ordered. EDMS 23:16 Duplex,carotid (complete) Ordered. EDMS 02/02 06:04 CARDIAC MARKER PANEL Ordered. EDMS 09:19 MRI Brain without Contrast Ordered. EDMS 09:19 MRA BRAIN W/O CONTRAST Ordered. EDMS 15:48 PCR was scanned into [employer] and attached to record. [id number] 11:55 T-Sheet-- Draft Copy was scanned into [employer] and attached to record. gb 11:55 ECG/EKG was scanned into [employer] and attached to record. gb 11:55 Rhythm Strip was scanned into [employer] and attached to record. gb Administered Medications: 04/03 20:13 Drug: NS 0.9% 1000 ml [sodium chloride 0.9 % intravenous solution] Route: IV; Rate: kas2 bolus; Site: left antecubital; 21:54 Follow up: IV Status: Completed infusion; IV Intake: 1000ml [facility] 20:13 Drug: morphine 4 mg [morphine 4 mg/mL intravenous cartridge (1 mL)] Route: IVP; Site: [facility] left antecubital; 21:54 Follow up: BP 114 / 72; Pulse 64 bpm; Resp 18 bpm; Pulse Ox 96% RA; Pain 0/10 Adult [facility] 21:54 Follow up: Response: No Adverse Reaction; Pain is resolved kas2 20:13 Drug: Ondansetron 4 mg [ondansetron HCl 2 mg/mL intravenous solution (2 mL)] Route: kas2 IVP; Site: left antecubital; 20:25 Not Given (patient very drowsy from morphine given. Dr. Rubin aware.): Diazepam 2 mg kas2 IVP once 22:03 Not Given (Other Intervention Used): Dexamethasone 6 mg IV at bolus once mm11 22:13 Drug: cefTRIAXone 1 grams [ceftriaxone 1 gram solution for injection] Route: IVPB; kas2 Infused Over: 30 mins; Site: left antecubital; 22:25 Not Given (Other Intervention Used): acetaZOLAMIDE 250 mg IV at calculated rate once mm11 23:20 Drug: acetaZOLAMIDE 500 mg [acetazolamide 250 mg tablet (2 tabs)] Route: PO; kas2 Signatures: Dispatcher [employer] EDMS Juan Holly RN RN Kristin Becker, Reg Reg gb Sonam Muse RN RN kr3 Laura Ceja Kristopher, MALE IMPERSONATOR MALE IMPERSONATOR kb5 Arsalan Rubin, DO mm11 Tiffanie Santa RN RN kas2 The chart was reviewed and I authenticate all verbal orders and agree with the evaluation and treatment provided.Corrections: (The following items were deleted from the chart) 04/04 06:02 02/ 23:09 CARDIAC MARKER PANEL ordered. EDMS EDMS Attachments: 20:33 [facility] Payment Agreement zo 04/05 11:55 T-Sheet-- Draft Copy gb 11:55 ECG/EKG gb Chart Complete MTDD
--- NOTE | 2016-04-06 13:11 | EDDOCDS ---
Nurse's Notes [facility] Name: Abhijit Sandoval Age: 50 yrs Sex: Male : 1965 Arrival Date: 04/03/2016 Time: 18:57 Bed Admit Hold Private MD: Juanito Hamm MD Diagnosis: Syncope and collapse-with EKG changes;Visual discomfort, bilateral Presentation: 04/03 19:01 Presenting complaint: EMS states: patient just released for bilateral septal nasal kas2 repair with deviated septum. Sitting in his chair tonight and passed out in front of girlfriend. FSBS 140 mg/dL. Denies chest pain of shortness of breath. Adult Sepsis Screening: The patient does not have new or worsening altered mentation. Patient's respiratory rate is less than 22. Systolic blood pressure is greater than 100. Patient has a qSOFA score of 0- Negative Sepsis Screen. Suicide/Homicide risk assessment- the patient denies having any suicidal and/or homicidal ideations and does not present with any other emotional, behavioral or mental health complaints. 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 Transition of care: patient was not received from another setting of care. 19:01 Acuity: [place] Level 3 kas2 19:01 Method Of Arrival: Ambulance kas2 Triage Assessment: 19:09 General: Appears in no apparent distress, comfortable, well nourished, well groomed, kas2 Behavior is appropriate for age, cooperative. Pain: Location: eyes and nose Pain currently is 6 out of 10 on a pain scale. Pt Declines HIV testing. Neurological: Level of Consciousness is awake, alert, Oriented to person, place, time. Cardiovascular: Capillary refill < 3 seconds Heart tones S1 S2 present Rhythm is sinus rhythm No ectopy. Respiratory: Airway is patent Respiratory effort is even, unlabored, Respiratory pattern is regular, symmetrical, Breath sounds are clear bilaterally. Derm: Skin is intact, Skin is dry, Skin is pink, warm & dry. Skin temperature is warm. Musculoskeletal: No deficits noted. Injury Description: No known injury. Historical: - Allergies: asparagus; Bees; Grape Jelly; Non-dairy creamer; steroids ( heart rate high); tylenolsyncopal episode that last for 24-48 hours; - Home Meds: 1. amoxicillin 875 mg Oral tab 1 tab every 12 hours finished yesterday 2. aspirin 81 mg Oral TbEC takes once every 3 days every other day 3. naproxen 500 mg Oral tab 1 tab every 12 hours 4. nitroglycerin 0.4 mg SL subl 1 tab as needed 5. Proventil HFA 90 mcg/actuation inhalation HFAA 2 puffs every 12 hours as needed 6. saline nasal spray------2x daily 7. Ultram 50 mg Oral tab every 6 hours as needed - PMHx: CAD; CVAX2; fractured nose---2016; hyperlipidemia; NV; Sleep Apnea w/ CPAP; - PSHx: right knee surgery; Hernia repair; - Social history: Smoking status: Patient uses tobacco products, light tobacco smoker. No barriers to communication noted, The patient speaks fluent Serbian. - : The pt / caregiver states he / she is not on anticoagulants. Home medication list is obtained from the patient. - Exposure Risk Screening:: None identified. Screenin:13 Screening information is obtained from the patient. Fall risk: No risks identified. kas2 Assistance ADL's: requires no assistance with activities of daily living. Abuse/DV Screen: The patient / caregiver reports he/she is: not in a situation that causes fear, pain or injury. Nutritional screening: No deficits noted. Advance Directives: Currently, there is no health care proxy. There is no active DNR order. There is no living will. 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 home support is adequate. Assessment: 19:12 General: See triage note.. kas2 20:15 General: Appears in no apparent distress, comfortable, well nourished, well groomed, kas2 Behavior is appropriate for age, cooperative. Pain: Denies pain. Neurological: Level of Consciousness is awake, alert, obeys commands, Oriented to person, place, time. Cardiovascular: Rhythm is sinus rhythm No ectopy. Respiratory: No deficits noted. Airway is patent Respiratory effort is even, unlabored, Respiratory pattern is regular, symmetrical, Breath sounds are clear bilaterally. Derm: Skin is intact, Skin is dry, Skin is pink, warm & dry. Skin temperature is warm. 21:08 General: Patient laying in bed sleeping. No apparent distress noted. Appears kas2 comfortable. Call paz within reach. Will continue to monitor.. 21:54 General: Appears in no apparent distress, comfortable, well nourished, well groomed, kas2 Behavior is appropriate for age, cooperative. Pain: Denies pain. Neurological: Level of Consciousness is awake, alert, obeys commands, Oriented to person, place, time. Cardiovascular: Rhythm is sinus rhythm No ectopy. Respiratory: No deficits noted. Airway is patent Respiratory effort is even, unlabored, Respiratory pattern is regular, symmetrical. Derm: Skin is intact, Skin is dry, Skin is pink, warm & dry. Skin temperature is warm. 22:21 General: Hospitalist in assessing patient at this time.. kas2 23:20 General: Appears in no apparent distress, comfortable, well nourished, well groomed, kas2 Behavior is appropriate for age, cooperative. Pain: Denies pain. Neurological: Level of Consciousness is awake, alert, obeys commands, Oriented to person, place, time. Cardiovascular: Rhythm is sinus rhythm No ectopy. Respiratory: Airway is patent Respiratory effort is even, unlabored, Respiratory pattern is regular, symmetrical. Derm: Skin is intact, Skin is dry, Skin is pink, warm & dry. Skin temperature is warm. 04/04 00:32 General: Patient in with admission nurse answering questions. No apparent distress. kas2 Appears comfortable. Denies pain or discomfort. VSS. Call paz within reach. Will continue to monitor.. 01:09 General: Verbal report given to Tiffanie Castellanos RN.. [facility] Vital Signs: 04/03 19:05 BP 132 / 84 (auto/); kas2 19:07 Pulse 86 MON; Pulse Ox 96% ; kas2 19:11 BP 132 / 84; Pulse 79; Resp 18; Temp 97.3(O); Pulse Ox 96% on R/A; Weight 78.93 kg; kas2 Height 6 ft. 0 in. (182.88 cm); Pain 6/10; 20:01 BP 128 / 78 (auto/); kas2 20:01 Pulse 72 MON; Pulse Ox 97% ; kas2 20:11 BP 124 / 76 (auto/); kas2 20:11 Pulse 68 MON; Pulse Ox 95% ; kas2 20:16 Resp 18; kas2 20:16 BP 117 / 73 (auto/); kas2 20:16 Pulse 74 MON; Pulse Ox 95% ; kas2 20:25 Resp 20; kas2 20:31 BP 121 / 76 (auto/); kas2 20:31 Pulse 68 MON; Pulse Ox 96% ; kas2 20:46 BP 120 / 75 (auto/); kas2 20:46 Pulse 70 MON; Pulse Ox 97% ; kas2 21:01 BP 114 / 71 (auto/); kas2 21:01 Pulse 68 MON; Pulse Ox 97% ; kas2 21:16 BP 114 / 72 (auto/); kas2 21:16 Pulse 64 MON; Pulse Ox 97% ; kas2 21:31 BP 111 / 71 (auto/); kas2 21:31 Pulse 74 MON; Pulse Ox 96% ; kas2 21:46 BP 104 / 62 (auto/); kas2 21:46 Pulse 70 MON; Pulse Ox 95% ; kas2 21:54 BP 114 / 72; Pulse 64; Resp 18; Pulse Ox 96% on R/A; Pain 0/10; kas2 22:01 BP 119 / 72 (auto/); kas2 22:01 Pulse 64 MON; Pulse Ox 98% ; kas2 22:31 BP 137 / 93 (auto/); kas2 22:31 Pulse 66 MON; Pulse Ox 97% ; kas2 22:46 BP 133 / 87 (auto/); kas2 22:46 Pulse 66 MON; Pulse Ox 96% ; kas2 23:01 BP 132 / 86 (auto/); kas2 23:01 Pulse 60 MON; Pulse Ox 97% ; kas2 23:16 BP 126 / 81 (auto/); kas2 23:16 Pulse 64 MON; Pulse Ox 97% ; kas2 23:21 Resp 18; Temp 98.2(O); Pain 0/10; kas2 23:31 BP 133 / 82 (auto/); kas2 23:31 Pulse 60 MON; Pulse Ox 97% ; kas2 23:46 BP 130 / 82 (auto/); kas2 23:46 Pulse 74 MON; Pulse Ox 97% ; kas2 02 00:01 BP 126 / 79 (auto/); kas2 00:01 Pulse 60 MON; Pulse Ox 97% ; kas2 00:16 BP 127 / 81 (auto/); kas2 00:16 Pulse 64 MON; Pulse Ox 97% ; kas2 00:31 BP 123 / 77 (auto/); kas2 00:31 Pulse 62 MON; Pulse Ox 97% ; kas2 00:34 Resp 20; Temp 97.9(O); Pain 0/10; kas2 02 19:11 Body Mass Index 23.60 (78.93 kg, 182.88 cm) [facility] Vitals: 02 19:11 Glucose Measurement D-stick done by EMS 140 mg/dL. Log In Time N/A - ambulance arrival. [facility] ED Course: 18:58 Patient visited by Tayler Pastor, Children'S Minister. lbd 18:58 Juanito Hamm is Private Physician. lbd 18:58 Tiffanie Santa RN is Primary Nurse. lbd 18:58 Patient moved to Waiting lbd 18:58 Patient moved to 11 lbd 19:04 Triage Initiated kas2 19:12 Maintain field IV. Dressing intact. Site clean & dry. Gauge & site: 20G left AC. No [facility] procedures done that require assistance. 19:14 Patient visited by Tiffanie Santa RN. [facility] 19:16 EKG done. (by ED staff). Reviewed by Nakul Patiño MD. [facility] 19:17 Patient visited by Terrie Carrillo, Children'S Minister. [facility] 19:17 Pt greeted and oriented to ED. Patient advised of names of staff involved in care, jl location of call paz, wait times and NPO status. Patient has correct armband on for positive identification. Placed in gown. Bed in low position. Call light in reach. Side rails up X 1. refractive surgeon on. Pulse ox on. NIBP on. 19:20 Arsalan Rubin DO is Attending Physician. mm11 19:20 Patient visited by Arsalan Rubin DO. mm11 19:36 Patient visited by Arsalan Rubin DO. mm11 20:17 Patient visited by Tiffanie Santa RN. kas2 20:25 Patient visited by Tiffanie Santa RN. kas2 20:33 [facility] Payment Agreement was scanned into [employer] and attached to record. zo 21:09 Patient visited by Tiffanie Santa RN. kas2 21:09 -Arterial Blood Gas Sent. jh6 21:32 CT Maxilofacial W/out Contrast Returned. EDMS 21:32 CT Head Without Contrast Returned. EDMS 21:55 Patient visited by Tiffanie Santa RN. kas2 22:01 Patient visited by Tiffanie Santa RN. kas2 22:09 Shy Vizcarra is Hospitalizing Provider. mm11 22:21 Lactic Acid (Mata tube on ice) Sent. kas2 22:21 Labs drawn. (by ED staff). Sent per order to lab. kas2 22:22 Patient visited by Tiffanie Santa RN. kas2 23:16 Patient moved to Admit Hold sls1 23:21 Patient visited by Tiffanie Santa RN. kas2 02 00:11 Patient visited by Tiffanie Santa RN. kas2 00:34 Patient visited by Tiffanie Santa RN. kas2 01:10 Patient visited by Tiffanie Santa RN. kas2 01:11 Patient moved to 19 sls1 01:11 Patient moved to Admit Hold sls1 01:48 Chest, 1 View Returned. EDMS 04:17 Patient moved to 2 mm11 04:17 Patient moved to 19 mm11 04:17 Patient moved to Admit Hold sls1 05:35 Duplex,carotid (complete) Returned. EDMS 07:25 Diet: Patient refused offered diet. jrd 07:26 Patient visited by Chris Ramirez PCA. jrd 08:24 Primary Nurse role handed off by Tiffanie Santa RN kr3 15:48 PCR was scanned into [employer] and attached to record. 04/05 11:55 T-Sheet-- Draft Copy was scanned into [employer] and attached to record. 11:55 ECG/EKG was scanned into [employer] and attached to record. 11:55 Rhythm Strip was scanned into [employer] and attached to record. gb Administered Medications: 04/03 20:13 Drug: NS 0.9% 1000 ml [sodium chloride 0.9 % intravenous solution] Route: IV; Rate: kas2 bolus; Site: left antecubital; 21:54 Follow up: IV Status: Completed infusion; IV Intake: 1000ml [facility] 20:13 Drug: morphine 4 mg [morphine 4 mg/mL intravenous cartridge (1 mL)] Route: IVP; Site: [facility] left antecubital; 21:54 Follow up: BP 114 / 72; Pulse 64 bpm; Resp 18 bpm; Pulse Ox 96% RA; Pain 0/10 Adult [facility] 21:54 Follow up: Response: No Adverse Reaction; Pain is resolved [facility] 20:13 Drug: Ondansetron 4 mg [ondansetron HCl 2 mg/mL intravenous solution (2 mL)] Route: [facility] IVP; Site: left antecubital; 20:25 Not Given (patient very drowsy from morphine given. Dr. Rubin aware.): Diazepam 2 mg kas2 IVP once 22:03 Not Given (Other Intervention Used): Dexamethasone 6 mg IV at bolus once mm11 22:13 Drug: cefTRIAXone 1 grams [ceftriaxone 1 gram solution for injection] Route: IVPB; kas2 Infused Over: 30 mins; Site: left antecubital; 22:25 Not Given (Other Intervention Used): acetaZOLAMIDE 250 mg IV at calculated rate once mm11 23:20 Drug: acetaZOLAMIDE 500 mg [acetazolamide 250 mg tablet (2 tabs)] Route: PO; kas2 Attachments: 11:55 Rhythm Strip gb Intake: 04/03 21:54 IV: 1000.00ml; Total: 1000.00ml. kas2 Output: 04/04 07:25 Urine: 840.00ml (Voided); Total: 840.00ml. jrd RT: 04/03 21:09 ABG's drawn from left radial artery pressure held for 5 minutes no bleeding noted jh6 pressure bandage applied specimen sent pt. tolerated well. Order Results: Lab Order: Basic Metabolic Profile; SPEC'M 04/03/16 20:03 Test: GLUCOSE, FASTING; Value: 117; Range: 70-105; Abnormal: Above high normal; Units: MG/DL; Status: F Test: BLOOD UREA NITROGEN; Value: 21; Range: 7-18; Abnormal: Above high normal; Units: MG/DL; Status: F Test: CREATININE FOR GFR; Value: 0.92; Range: 0.70-1.30; Units: MG/DL; Status: F Test: GLOMERULAR FILTRATION RATE; Value: > 60.0; Range: >56; Status: F Test: SODIUM LEVEL; Value: 138; Range: 136-145; Units: MEQ/L; Status: F Test: POTASSIUM SERUM; Value: 4.3; Range: 3.5-5.1; Units: MEQ/L; Status: F Test: CHLORIDE LEVEL; Value: 110; Range: 98-107; Abnormal: Above high normal; Units: MEQ/L; Status: F Test: CARBON DIOXIDE LEVEL; Value: 18; Range: 21-32; Abnormal: Below low normal; Units: MEQ/L; Status: F Test: ANION GAP; Value: 10; Range: 8-16; Units: MEQ/L; Status: F Test: CALCIUM LEVEL; Value: 8.6; Range: 8.5-10.1; Units: MG/DL; Status: F Test Note: ; Units are mL/min/1.73 m2 Chronic Kidney Disease Staging per NKF: Stage I & II GFR >=60 Normal to Mildly Decreased Stage III GFR 30-59 Moderately Decreased Stage IV GFR 15-29 Severely Decreased Stage V GFR <15 Very Little GFR Left ESRD GFR <15 on REGISTERED PHLEBOTOMIST PART TIME Lab Order: CBC with Diff; SPEC'M 04/03/16 20:03 Test: WHITE BLOOD COUNT; Value: 16.7; Range: 4.0-10.0; Abnormal: Above high normal; Units: K/mm3; Status: F Test: RED BLOOD COUNT; Value: 5.37; Range: 4.30-6.10; Units: M/mm3; Status: F Test: HEMOGLOBIN; Value: 14.2; Range: 14.0-18.0; Units: g/dl; Status: F Test: HEMATOCRIT; Value: 43.7; Range: 42.0-52.0; Units: %; Status: F Test: MEAN CORPUSCULAR VOLUME; Value: 81.4; Range: 80.0-96.0; Units: fl; Status: F Test: MEAN CORPUSCULAR HEMOGLOBIN; Value: 26.4; Range: 27.0-33.0; Abnormal: Below low normal; Units: pg; Status: F Test: MEAN CORPUSCULAR HGB CONC; Value: 32.4; Range: 32.0-36.5; Units: g/dl; Status: F Test: RED CELL DISTRIBUTION WIDTH; Value: 14.5; Range: 11.5-14.5; Units: %; Status: F Test: PLATELET COUNT, AUTOMATED; Value: 276; Range: 150-450; Units: k/mm3; Status: F Test: NEUTROPHILS %; Value: 88.5; Range: 36.0-66.0; Abnormal: Above high normal; Units: %; Status: F Test: LYMPH %; Value: 7.3; Range: 24.0-44.0; Abnormal: Below low normal; Units: %; Status: F Test: MONO %; Value: 3.1; Range: 0.0-5.0; Units: %; Status: F Test: EOS %; Value: 0.2; Range: 0.0-3.0; Units: %; Status: F Test: BASO %; Value: 0.1; Range: 0.0-1.0; Units: %; Status: F Test: LARGE UNSTAINED CELL %; Value: 0.8; Range: 0.0-4.0; Units: %; Status: F Test: NEUTROPHILS #; Value: 14.8; Range: 1.8-7.7; Abnormal: Above high normal; Units: K/mm3; Status: F Test: LYMPH #; Value: 1.2; Range: 1.5-4.5; Abnormal: Below low normal; Units: K/mm3; Status: F Test: MONO #; Value: 0.5; Range: 0.0-0.8; Units: K/mm3; Status: F Test: EOS #; Value: 0.0; Range: 0.0-0.50; Units: K/mm3; Status: F Test: BASO #; Value: 0.0; Range: 0.0-0.2; Units: K/mm3; Status: F Test: LARGE UNSTAINED CELL #; Value: 0.1; Range: 0.0-0.4; Units: K/mm3; Status: F Lab Order: Cardiac Injury Profile; SPEC'M 04/03/16 20:03 Test: CPK CREATINE PHOSPHOKINASE; Value: 99; Range: 39-308; Units: U/L; Status: F Test: CK-MB VALUE MASS; Value: 1.2; Range: 0.0-3.6; Units: NG/ML; Status: F Test: MB/CK RELATIVE INDEX; Value: 1.21; Range: < OR =4; Status: F Test Note: ; DIAGNOSIS CRITERIA MMB ng/ml Relative Index (RI) NON-AMI < or = 5 N/A MATA ZONE > 5 < or = 4 AMI > 5 > 4 Lab Order: Troponin; SPEC'M 04/03/16 20:03 Test: TROPONIN I; Value: < 0.02; Range: < 0.10; Units: NG/ML; Status: F Test Note: ; Troponin I Reference Interval for Siemens [place] LOCI: 99th Percentile= 0.00-0.045 ng/ml Risk Stratification: <= 0.10 ng/ml Decreased Risk for Adverse Clinical Events. 0.10-1.50 ng/ml Increased Risk for Adverse Clinical Events. Evaluation of additional criterion and/or repeat testing in 2-6 hours is suggested to rule out myocardial damage. >= 1.50 ng/ml Indicative of Myocardial Injury. Lab Order: -Arterial Blood Gas; SPEC04/03/16 21:02 Test: ABG pH (ARTERIAL); Value: 7.332; Range: 7.350-7.450; Abnormal: Below low normal; Units: UNITS; Status: F Test: ABG PARTIAL PRESSURE CO2; Value: 34.2; Range: 35.0-45.0; Abnormal: Below low normal; Units: mmHg; Status: F Test: ABG PARTIAL PRESSURE O2; Value: 78.9; Range: 75.0-100.0; Units: mmHg; Status: F Test: ABG TOTAL CO2; Value: 18.8; Range: 22.0-29.0; Abnormal: Below low normal; Units: MEQ/L; Status: F Test: ABG HCO3; Value: 17.7; Range: 22.0-26.0; Abnormal: Below low normal; Units: MEQ/L; Status: F Test: ABG BASE EXCESS; Value: -7.2; Range: -2.0-2.0; Abnormal: Below low normal; Status: F Test: ABG STANDARD HCO3; Value: 18.6; Range: 22.0-26.0; Abnormal: Below low normal; Units: MEQ/L; Status: F Test: ABG O2 SATURATION; Value: 95.2; Range: 95.0-99.0; Units: %; Status: F Test: ABG DEVICE; Value: NASAL HANNA; Status: F Lab Order: Lactic Acid (Mata tube on ice); 04/03/16 22:19 Test: LACTIC ACID SEPSIS PROTOCOL; Value: 0.7; Range: 0.4-2.0; Units: MMOL/L; Status: F Lab Order: CARDIAC MARKER PANEL; SPEC'04/04/16 00:40 Test: CPK CREATINE PHOSPHOKINASE; Value: 79; Range: 39-308; Units: U/L; Status: F Test: CK-MB VALUE MASS; Value: 1.0; Range: 0.0-3.6; Units: NG/ML; Status: F Test: MB/CK RELATIVE INDEX; Value: 1.26; Range: < OR =4; Status: F Test: TROPONIN I; Value: < 0.02; Range: < 0.10; Units: NG/ML; Status: F Test Note: ; DIAGNOSIS CRITERIA MMB ng/ml Relative Index (RI) NON-AMI < or = 5 N/A MATA ZONE > 5 < or = 4 AMI > 5 > 4 Lab Order: C REACTIVE PROTEIN QUANTITATIV; SPEC04/04/16 06:38 Test: C REACTIVE PROTEIN QUANTITATIV; Value: 1.09; Range: 0.00-0.30; Abnormal: Above high normal; Units: MG/DL; Status: F Lab Order: COMPLETE BLOOD COUNT; [facility]04/04/16 06:39 Test: WHITE BLOOD COUNT; Value: 15.2; Range: 4.0-10.0; Abnormal: Above high normal; Units: K/mm3; Status: F Test: RED BLOOD COUNT; Value: 5.06; Range: 4.30-6.10; Units: M/mm3; Status: F Test: HEMOGLOBIN; Value: 13.3; Range: 14.0-18.0; Abnormal: Below low normal; Units: g/dl; Status: F Test: HEMATOCRIT; Value: 41.4; Range: 42.0-52.0; Abnormal: Below low normal; Units: %; Status: F Test: MEAN CORPUSCULAR VOLUME; Value: 81.8; Range: 80.0-96.0; Units: fl; Status: F Test: MEAN CORPUSCULAR HEMOGLOBIN; Value: 26.2; Range: 27.0-33.0; Abnormal: Below low normal; Units: pg; Status: F Test: MEAN CORPUSCULAR HGB CONC; Value: 32.0; Range: 32.0-36.5; Units: g/dl; Status: F Test: RED CELL DISTRIBUTION WIDTH; Value: 14.7; Range: 11.5-14.5; Abnormal: Above high normal; Units: %; Status: F Test: PLATELET COUNT, AUTOMATED; Value: 268; Range: 150-450; Units: k/mm3; Status: F Lab Order: BASIC METABOLIC PROFILE; SPEC04/04/16 06:38 Test: GLUCOSE, FASTING; Value: 95; Range: 70-105; Units: MG/DL; Status: F Test: BLOOD UREA NITROGEN; Value: 18; Range: 7-18; Units: MG/DL; Status: F Test: CREATININE FOR GFR; Value: 0.81; Range: 0.70-1.30; Units: MG/DL; Status: F Test: GLOMERULAR FILTRATION RATE; Value: > 60.0; Range: >56; Status: F Test: SODIUM LEVEL; Value: 142; Range: 136-145; Units: MEQ/L; Status: F Test: POTASSIUM SERUM; Value: 4.0; Range: 3.5-5.1; Units: MEQ/L; Status: F Test: CHLORIDE LEVEL; Value: 116; Range: 98-107; Abnormal: Above high normal; Units: MEQ/L; Status: F Test: CARBON DIOXIDE LEVEL; Value: 17; Range: 21-32; Abnormal: Below low normal; Units: MEQ/L; Status: F Test: ANION GAP; Value: 9; Range: 8-16; Units: MEQ/L; Status: F Test: CALCIUM LEVEL; Value: 8.3; Range: 8.5-10.1; Abnormal: Below low normal; Units: MG/DL; Status: F Test Note: ; Units are mL/min/1.73 m2 Chronic Kidney Disease Staging per NKF: Stage I & II GFR >=60 Normal to Mildly Decreased Stage III GFR 30-59 Moderately Decreased Stage IV GFR 15-29 Severely Decreased Stage V GFR <15 Very Little GFR Left ESRD GFR <15 on REGISTERED PHLEBOTOMIST PART TIME Lab Order: MAGNESIUM LEVEL; SPEC04/04/16 06:38 Test: MAGNESIUM LEVEL; Value: 2.3; Range: 1.8-2.4; Units: MG/DL; Status: F Lab Order: CARDIAC MARKER PANEL; SPEC04/04/16 06:38 Test: CPK CREATINE PHOSPHOKINASE; Value: 78; Range: 39-308; Units: U/L; Status: F Test: CK-MB VALUE MASS; Value: 1.0; Range: 0.0-3.6; Units: NG/ML; Status: F Test: MB/CK RELATIVE INDEX; Value: 1.28; Range: < OR =4; Status: F Test: TROPONIN I; Value: < 0.02; Range: < 0.10; Units: NG/ML; Status: F Test Note: ; DIAGNOSIS CRITERIA MMB ng/ml Relative Index (RI) NON-AMI < or = 5 N/A MATA ZONE > 5 < or = 4 AMI > 5 > 4 Radiology Order: CT Head Without Contrast Test: CT Head Without Contrast REASON FOR EXAMINATION: Syncope; ; Reason for examination : Syncope; Comparison: CT head 12/28/2015; Technique:; CT head: Multiple axial images were obtained without contrast from the skull vertex to C1.; CT facial bones: Multiple contiguous axial CT images were also obtained through the facial bones at 2; .5 mm slice thickness without the use of intravenous contrast. 1.25 mm axial reformations were create; d from which sagittal and coronal reformations were performed to evaluate the orbital floors.; Findings:; No acute intracranial hemorrhage or evidence of acute transcortical ischemia. No suspicious intra-axi; al or extraction fluid collection, midline shift, or hydrocephalus.; Posterior Fossa: Unremarkable.; There is leftward deviated nasal deformity with soft tissue swelling, with bilateral nasal bone fract; ures with approximately 4.6 mm depression of the left, and extending to the nasal maxillary ridge on; the right. Small nondisplaced anterior right lamina papyracea fracture is also noted on axial series; 301, image [id number].; Ethmoidal sinus mucosal thickening with small fluid levels in right frontal and mastoid sinuses with; hemorrhagic products.; There is right superomedial orbital compartment retrobulbar stranding with thickening of the medial r; ectus and oblique muscles. The optic globes appear intact.; Inner ear cavities appear unremarkable.; IMPRESSION:; ; 1. No acute intracranial hemorrhage.; 2. Leftward deviated nasal deformity with soft tissue swelling, with bilateral nasal bone fractures w; ith approximately 4.6 mm depression of the left, and extending to the nasal maxillary ridge on the ri; ght. Small nondisplaced anterior right lamina papyracea fracture also noted.; 3. Right superomedial orbital compartment retrobulbar stranding with thickening of the medial rectus; and oblique muscles. Ophthalmologic consultation should be considered.; ; Radiology Order: Chest, 1 View Test: Chest, 1 View REASON FOR EXAMINATION: Syncope; Clinical: Syncope .; ; Comparison: 02/01/2016 .; ; Technique: PA and lateral.; ; Findings:; The mediastinum and cardiac silhouette are normal. The lung ross demonstrate; chronic stable changes without acute consolidation, effusion, or pneumothorax.; The skeletal structures are intact and normal.; ; Impression:; 1. No acute cardiopulmonary process.; ; ; Signed by; Alvarez Hart MD 04/04/2016 01:31 A; Radiology Order: CT Maxilofacial W/out Contrast Test: CT Maxilofacial W/out Contrast REASON FOR EXAMINATION: recent sinus surgery; ; Reason for examination : Syncope; Comparison: CT head 12/28/2015; Technique:; CT head: Multiple axial images were obtained without contrast from the skull vertex to C1.; CT facial bones: Multiple contiguous axial CT images were also obtained through the facial bones at 2; .5 mm slice thickness without the use of intravenous contrast. 1.25 mm axial reformations were create; d from which sagittal and coronal reformations were performed to evaluate the orbital floors.; Findings:; No acute intracranial hemorrhage or evidence of acute transcortical ischemia. No suspicious intra-axi; al or extraction fluid collection, midline shift, or hydrocephalus.; Posterior Fossa: Unremarkable.; There is leftward deviated nasal deformity with soft tissue swelling, with bilateral nasal bone fract; ures with approximately 4.6 mm depression of the left, and extending to the nasal maxillary ridge on; the right. Small nondisplaced anterior right lamina papyracea fracture is also noted on axial series; 301, image [id number].; Ethmoidal sinus mucosal thickening with small fluid levels in right frontal and mastoid sinuses with; hemorrhagic products.; There is right superomedial orbital compartment retrobulbar stranding with thickening of the medial r; ectus and oblique muscles. The optic globes appear intact.; Inner ear cavities appear unremarkable.; IMPRESSION:; ; 1. No acute intracranial hemorrhage.; 2. Leftward deviated nasal deformity with soft tissue swelling, with bilateral nasal bone fractures w; ith approximately 4.6 mm depression of the left, and extending to the nasal maxillary ridge on the ri; ght. Small nondisplaced anterior right lamina papyracea fracture also noted.; 3. Right superomedial orbital compartment retrobulbar stranding with thickening of the medial rectus; and oblique muscles. Ophthalmologic consultation should be considered.; ; Radiology Order: Duplex,carotid (complete) Test: Duplex,carotid (complete) REASON FOR EXAMINATION: syncope; Clinical: Syncope .; ; Technique: Mata scale and color Doppler evaluation using linear high frequency; transducer; ; Findings:; Two-dimensional mata scale and color images demonstrate mild symmetric mixed; plaquing along the common carotid arteries extending to the proximal internal; carotid arteries with normal laminar flow and no significant narrowing. Color; Doppler interrogation demonstrates normal arterial wave patterns and velocities; with no significant spectral broadening. Normal flow direction is appreciated in; the left vertebral artery while the right vertebral artery is not visualized.; ; RIGHT (cm/s) LEFT (cm/s); ; ICA peak systolic velocity 66.3 44.9; ICA diastolic velocity 22.9 21.9; ECA peak systolic velocity 65.1 56.5; CCA peak systolic velocity 84.3 76.8; ICA/CCA ratio 0.79 0.58; ; Impression:; 1. No hemodynamically significant areas of narrowing or stenosis appreciated.; Based on set standards narrowing falls within the less than 50% range.; 2. Normal left vertebral artery. Right vertebral artery not visualized.; ; ; Signed by; Alvarez Hart MD 04/04/2016 05:03 A; Outcome: 22:09 Decision to Hospitalize by Provider. mm11 04/04 12:11 Patient left the ED. kr3 Signatures: Dispatcher [employer] EDMS Tayler Pastor, [facility] lbd Kristin South, Reg Reg gb Sonam Muse,RN RN kr3 Laura Ceja Matthew, DO mm11 Hakan Dia 6 Giesla Hughes, RN RN sls1 Terrie Carrillo, [facility] m Chris Ramirez, BUILDING CONSTRUCTION ENGINEER BUILDING CONSTRUCTION ENGINEER d Tiffanie Santa,RN RN kas2 Chart Complete MTDD
--- NOTE | 2016-04-06 13:11 | EDDOCDS ---
Physician Documentation [facility] Name: Abhijit Sandoval Age: 50 yrs Sex: Male : 1965 Arrival Date: 04/03/2016 Time: 18:57 Bed Admit Hold Private MD: Juanito Hamm MD Disposition: 04/03/16 22:09 Hospitalization ordered by Shy Vizcarra for Inpatient Admission. Preliminary diagnosis are Syncope and collapse - with EKG changes, Visual discomfort, bilateral. - Bed requested for PCU. - Status is Inpatient Admission. kr3 - Condition is Stable. - Problem is an acute exacerbation. - Symptoms have improved. Historical: - Allergies: asparagus; Bees; Grape Jelly; Non-dairy creamer; steroids ( heart rate high); tylenolsyncopal episode that last for 24-48 hours; - Home Meds: 1. amoxicillin 875 mg Oral tab 1 tab every 12 hours finished yesterday 2. aspirin 81 mg Oral TbEC takes once every 3 days every other day 3. naproxen 500 mg Oral tab 1 tab every 12 hours 4. nitroglycerin 0.4 mg SL subl 1 tab as needed 5. Proventil HFA 90 mcg/actuation inhalation HFAA 2 puffs every 12 hours as needed 6. saline nasal spray------2x daily 7. Ultram 50 mg Oral tab every 6 hours as needed - PMHx: CAD; CVAX2; fractured nose---2016; hyperlipidemia; ME; Sleep Apnea w/ CPAP; - PSHx: right knee surgery; Hernia repair; - Social history: Smoking status: Patient uses tobacco products, light tobacco smoker. No barriers to communication noted, The patient speaks fluent Nepali. - : The pt / caregiver states he / she is not on anticoagulants. Home medication list is obtained from the patient. - Exposure Risk Screening:: None identified. Vital Signs: 04/03 19:05 BP 132 / 84 (auto/); kas2 19:07 Pulse 86 MON; Pulse Ox 96% ; kas2 19:11 BP 132 / 84; Pulse 79; Resp 18; Temp 97.3(O); Pulse Ox 96% on R/A; Weight 78.93 kg / kas2 174.01 lbs; Height 6 ft. 0 in. (182.88 cm); Pain 6/10; 20:01 BP 128 / 78 (auto/); kas2 20:01 Pulse 72 MON; Pulse Ox 97% ; kas2 20:11 BP 124 / 76 (auto/); kas2 20:11 Pulse 68 MON; Pulse Ox 95% ; kas2 20:16 Resp 18; kas2 20:16 BP 117 / 73 (auto/); kas2 20:16 Pulse 74 MON; Pulse Ox 95% ; kas2 20:25 Resp 20; kas2 20:31 BP 121 / 76 (auto/); kas2 20:31 Pulse 68 MON; Pulse Ox 96% ; kas2 20:46 BP 120 / 75 (auto/); kas2 20:46 Pulse 70 MON; Pulse Ox 97% ; kas2 21:01 BP 114 / 71 (auto/); kas2 21:01 Pulse 68 MON; Pulse Ox 97% ; kas2 21:16 BP 114 / 72 (auto/); kas2 21:16 Pulse 64 MON; Pulse Ox 97% ; kas2 21:31 BP 111 / 71 (auto/); kas2 21:31 Pulse 74 MON; Pulse Ox 96% ; kas2 21:46 BP 104 / 62 (auto/); kas2 21:46 Pulse 70 MON; Pulse Ox 95% ; kas2 21:54 BP 114 / 72; Pulse 64; Resp 18; Pulse Ox 96% on R/A; Pain 0/10; kas2 22:01 BP 119 / 72 (auto/); kas2 22:01 Pulse 64 MON; Pulse Ox 98% ; kas2 22:31 BP 137 / 93 (auto/); kas2 22:31 Pulse 66 MON; Pulse Ox 97% ; kas2 22:46 BP 133 / 87 (auto/); kas2 22:46 Pulse 66 MON; Pulse Ox 96% ; kas2 23:01 BP 132 / 86 (auto/); kas2 23:01 Pulse 60 MON; Pulse Ox 97% ; kas2 23:16 BP 126 / 81 (auto/); kas2 23:16 Pulse 64 MON; Pulse Ox 97% ; kas2 23:21 Resp 18; Temp 98.2(O); Pain 0/10; kas2 23:31 BP 133 / 82 (auto/); kas2 23:31 Pulse 60 MON; Pulse Ox 97% ; kas2 23:46 BP 130 / 82 (auto/); kas2 23:46 Pulse 74 MON; Pulse Ox 97% ; [facility] 02 00:01 BP 126 / 79 (auto/); [facility] 00:01 Pulse 60 MON; Pulse Ox 97% ; [facility] 00:16 BP 127 / 81 (auto/); [facility] 00:16 Pulse 64 MON; Pulse Ox 97% ; [facility] 00:31 BP 123 / 77 (auto/); [facility] 00:31 Pulse 62 MON; Pulse Ox 97% ; [facility] 00:34 Resp 20; Temp 97.9(O); Pain 0/10; [facility] 04/03 19:11 Body Mass Index 23.60 (78.93 kg, 182.88 cm) [facility] MDM: 04/03 19:08 ECG WITH READING ER PHYS+CARDIAG ordered. EDMS 19:38 Poolroom Table Attendant/Pulse Ox/q 15 min VS ordered. mm11 19:38 Accucheck ordered. mm11 19:38 IV Saline Lock ordered. mm11 19:38 Rhythm Strip to chart ordered. mm11 19:38 NS 0.9% 1000 ml IV at bolus once ordered. mm11 19:38 Diazepam 2 mg IVP once ordered. mm11 19:38 morphine 4 mg IVP every 30 minutes; Document pain score/vitals after each dose (Hold if mm11 SBP < 90mmHg) x2 ordered. 19:38 Ondansetron 4 mg IVP once ordered. mm11 19:39 Basic Metabolic Profile Ordered. EDMS 19:39 CBC with Diff Ordered. EDMS 19:39 Cardiac Injury Profile Ordered. EDMS 19:39 Troponin Ordered. EDMS 19:40 Chest, 1 View Ordered. EDMS 19:40 CT Head Without Contrast Ordered. EDMS 19:40 CT Maxilofacial W/out Contrast Ordered. EDMS 20:30 Financial registration complete. zo 20:33 [facility] [place] [place] Payment Agreement was scanned into [employer] and attached to record. zo 20:42 Basic Metabolic Profile Reviewed. mm11 20:42 CBC with Diff Reviewed. mm11 20:42 Cardiac Injury Profile Reviewed. mm11 20:42 Troponin Reviewed. mm11 20:43 Call Respiratory ordered. mm11 20:43 -Arterial Blood Gas Ordered. EDMS 20:46 Call Respiratory complete. kb5 21:35 -Arterial Blood Gas Reviewed. mm11 21:35 CT Head Without Contrast Reviewed. mm11 21:35 CT Maxilofacial W/out Contrast Reviewed. mm11 21:57 Dexamethasone 6 mg IV at bolus once ordered. mm11 21:57 acetaZOLAMIDE 250 mg IV at calculated rate once ordered. mm11 21:59 cefTRIAXone 1 grams IVPB once over 30 mins; dilute in 50mL of NS or D5W ordered. mm11 22:00 BED REQUEST+ADM ordered. EDMS 22:01 Lactic Acid (Mata tube on ice) Ordered. EDMS 22:25 acetaZOLAMIDE 500 mg PO once ordered. mm11 22:57 Lactic Acid (Mata tube on ice) Reviewed. mm11 23:08 ECHOCARD,DOPPLER/COLOR FLOW ordered. EDMS 23:08 CARDIAC MARKER PANEL Ordered. EDMS 23:09 C REACTIVE PROTEIN QUANTITATIV Ordered. EDMS 23:09 COMPLETE BLOOD COUNT Ordered. EDMS 23:09 BASIC METABOLIC PROFILE Ordered. EDMS 23:09 MAGNESIUM LEVEL Ordered. EDMS 23:09 BLOOD CULTURES Ordered. EDMS 23:09 BLOOD CULTURES Ordered. EDMS 23:11 PHYSICAL THERAPY EVAL & TREAT ordered. EDMS 23:15 Admission / Observation Status ordered. EDMS 23:15 LOW FAT LOW CHOLESTEROL DIET ordered. EDMS 23:16 Duplex,carotid (complete) Ordered. EDMS 02/02 06:04 CARDIAC MARKER PANEL Ordered. EDMS 09:19 MRI Brain without Contrast Ordered. EDMS 09:19 MRA BRAIN W/O CONTRAST Ordered. EDMS 15:48 PCR was scanned into [employer] and attached to record. 0203 11:55 T-Sheet-- Draft Copy was scanned into [employer] and attached to record. gb 11:55 ECG/EKG was scanned into [employer] and attached to record. gb 11:55 Rhythm Strip was scanned into [employer] and attached to record. gb Administered Medications: 04/03 20:13 Drug: NS 0.9% 1000 ml [sodium chloride 0.9 % intravenous solution] Route: IV; Rate: kas2 bolus; Site: left antecubital; 21:54 Follow up: IV Status: Completed infusion; IV Intake: 1000ml [facility] 20:13 Drug: morphine 4 mg [morphine 4 mg/mL intravenous cartridge (1 mL)] Route: IVP; Site: [facility] left antecubital; 21:54 Follow up: BP 114 / 72; Pulse 64 bpm; Resp 18 bpm; Pulse Ox 96% RA; Pain 0/10 Adult [facility] 21:54 Follow up: Response: No Adverse Reaction; Pain is resolved kas2 20:13 Drug: Ondansetron 4 mg [ondansetron HCl 2 mg/mL intravenous solution (2 mL)] Route: kas2 IVP; Site: left antecubital; 20:25 Not Given (patient very drowsy from morphine given. Dr. Rubin aware.): Diazepam 2 mg kas2 IVP once 22:03 Not Given (Other Intervention Used): Dexamethasone 6 mg IV at bolus once mm11 22:13 Drug: cefTRIAXone 1 grams [ceftriaxone 1 gram solution for injection] Route: IVPB; kas2 Infused Over: 30 mins; Site: left antecubital; 22:25 Not Given (Other Intervention Used): acetaZOLAMIDE 250 mg IV at calculated rate once mm11 23:20 Drug: acetaZOLAMIDE 500 mg [acetazolamide 250 mg tablet (2 tabs)] Route: PO; kas2 Signatures: Dispatcher [employer] EDMS Juan Holly RN RN Kristin Becker, Reg Reg gb Sonam Muse RN RN kr3 Laura Ceja Kristopher, ONCOLOGY RN ONCOLOGY RN kb5 Arsalan Rubin, DO mm11 Tiffanie Santa RN RN kas2 The chart was reviewed and I authenticate all verbal orders and agree with the evaluation and treatment provided.Corrections: (The following items were deleted from the chart) 04/04 06:02 02/ 23:09 CARDIAC MARKER PANEL ordered. EDMS EDMS Attachments: 20:33 [facility] Payment Agreement zo 04/05 11:55 T-Sheet-- Draft Copy gb 11:55 ECG/EKG gb Chart Complete MTDD
[2016-04-07] VITALS (12 sets, daily range): BP systolic 116–148; BP diastolic 68–96; O2SAT 94–96
[2016-04-07] MEDS: oxyCODONE 5MG TAB PO PRN ×2 (00:33→09:14)
[2016-04-07] MEDS: dexameTHASONE 20 MG/5 ML VIAL (J1100) IV SCH (05:00)
[2016-04-07] MEDS: SLF 3 ML SYR IV SCH (05:00)
[2016-04-07 05:18] LABS: MEAN CORPUSCULAR HEMOGLOBIN 25.8 pg (27.0-33.0); MEAN CORPUSCULAR HGB CONC 32.1 g/dl (32.0-36.5); MEAN CORPUSCULAR VOLUME 80.3 fl (80.0-96.0); RED CELL DISTRIBUTION WIDTH 14.8 % (11.5-14.5); WHITE BLOOD COUNT 13.5 K/mm3 (4.0-10.0)
[2016-04-07 05:40] LABS: ANION GAP 11 MEQ/L (8-16); BLOOD UREA NITROGEN 21 MG/DL (7-18); CALCIUM LEVEL 8.3 MG/DL (8.5-10.1); CARBON DIOXIDE LEVEL 18 MEQ/L (21-32); CHLORIDE LEVEL 110 MEQ/L (98-107); CREATININE FOR GFR 0.86 MG/DL (0.70-1.30); GLOMERULAR FILTRATION RATE > 60.0 (>56); GLUCOSE, FASTING 121 MG/DL (70-105); POTASSIUM SERUM 4.3 MEQ/L (3.5-5.1); SODIUM LEVEL 139 MEQ/L (136-145)
[2016-04-07] MEDS: SENOKOT S TAB PO SCH (09:00)
[2016-04-07] MEDS: AcetaZOLAMIDE 250 MG TAB PO SCH (09:13)
[2016-04-07] MEDS: CETIRIZINE (ZyrTEC) 10 MG TAB PO SCH (09:13)
[2016-04-07] MEDS: TOBRADEX OPHTH OINT 3.5 GM OD SCH ×2 (09:14→13:00)
[2016-04-07] MEDS: CEFTAROLINE FOSAMIL 600 MG in D5W MINI-BAG PLUS 50 ML IV SCH (09:14)
[2016-04-07] MEDS: SODIUM CHLORIDE NASAL 0.65% SPRAY BTL (OCEAN) SCH (09:15)
--- NOTE | 2016-04-07 13:32 | IPNPDOC ---
Date Seen The patient was seen on 04/07/16. Progress Note Hospitalist Progress Note Subjective: Patient reports feeling well, his only complaint is that he would like to smoke a cigarette. He declines the offer of a nicotine patch. Objective: Physical Exam: Vitals: Vital Sign - Last 24 Hours 04/06/16 04/06/16 04/06/16 04/06/16 16:00 16:00 18:13 20:00 Temp 96.5 Pulse 69 Resp 18 20 B/P 132/91 Pulse Ox 94 99 O2 Delivery Room Air Room Air Room Air 04/06/16 04/06/16 04/06/16 04/06/16 20:00 20:10 20:12 21:00 Temp 96.3 Pulse 74 78 91 83 Resp 20 B/P 119/80 147/91 149/94 Pulse Ox 94 97 94 O2 Delivery Room Air Room Air Room Air 04/06/16 04/07/16 04/07/16 04/07/16 22:00 00:00 00:33 00:35 Temp 95.5 Pulse 64 Resp 18 18 B/P 117/76 Pulse Ox 95 94 98 O2 Delivery Room Air Room Air Room Air 04/07/16 04/07/16 04/07/16 04/07/16 01:00 01:03 02:00 03:00 Pulse Ox 95 96 96 O2 Delivery Room Air Room Air Room Air Room Air 04/07/16 04/07/16 04/07/16 04/07/16 04:00 04:00 04:56 05:00 Temp 95.4 Pulse 62 Resp 20 B/P 116/77 Pulse Ox 95 98 96 O2 Delivery Room Air Room Air Room Air Room Air 04/07/16 04/07/16 04/07/16 04/07/16 07:48 08:00 08:00 08:00 Temp 96.1 Pulse 64 64 72 70 Resp 18 B/P 125/68 125/68 139/96 148/96 Pulse Ox 95 93 O2 Delivery Room Air Room Air Room Air 04/07/16 04/07/16 04/07/16 04/07/16 09:14 09:44 12:00 12:36 Temp 96.3 Pulse 61 Resp 20 20 18 B/P 133/70 Pulse Ox 98 96 O2 Delivery Room Air Room Air General: Alert, awake, no acute distress HEENT: Right periorbital bruising CV: Regular rate and rhythm, no murmurs rubs or gallops Lungs: Clear to auscultation bilaterally Abd: Soft, Nontender, nondistended Extremities: No edema Neuro: Alert and oriented 3, normal speech Psych: And normal mood and affect Labs and Imaging: Laboratory Tests 04/07/16 04:44 Calcium Level 8.3 L, Red Blood Count 5.12, Mean Corpuscular Volume 80.3, Mean Corpuscular Hemoglobin 25.8 L, Mean Corpuscular Hemoglobin Concent 32.1, Red Cell Distribution Width 14.8 H Assessment and Plan: 50-year-old male with CAD with prior [place], history of CVA, hyperlipidemia, ELADIA, nasal and orbital fractures in 2016 who presented with syncope. 1. Syncope: Thus far, workup is unrevealing. Echo is remarkable only for moderate ulnar hypertension. Telemetry has been unrevealing. Carotid ultrasound , CT of the head, MRI and MRA of the brain are unremarkable. At this time, it is felt that the patient would benefit from Loop monitor. Dr. Gregory has begun these arrangements, and we hope that the patient will be up to be discharged on Friday or Friday with a loop monitor. 2. Recent facial trauma: The patient underwent surgery with Dr. Shook and Dr. Austin at the end of March. At this time, they have recommended Decadron, Diamox and Augmentin, as well as TobraDex to the right eye and ice packs. They also are recommending sodium chloride nasal spray. They also would like tape tarsorrhaphy at bedtime. Dr. Shook has noted that the patient needs to be evaluated by an orbital surgeon in [place], and is recommending follow-up with Dr. Karsten Allred. It does not appear, that Augmentin comes in IV form, as has been recommended by Dr. Shook, so at this time we will continue with the Teflaro and clarify with Dr. Shook. 3. CAD with prior [place], hx of CVA, HLD: Given the recent hemorrhagic trauma to his orbital area that was recently surgically repaired, we are holding the patient's aspirin. The patient does not report being on a beta krysta or a statin at home. He would benefit from evaluation by his primary physicians about adding these to his regimen. 4. ELADIA: Given the patient's facial trauma, he is not currently a candidate for CPAP. 5. Leukocytosis: The patient's white count was 16.7 upon admission and this slowly trended down to 13.5. He has been afebrile, and there is been no sign of infection. I suspect that this is reactive from his trauma and recent surgery. We'll continue to monitor. DVT prophylaxis: SCDs Dispo: pending reevaluation by Dr. Shook and ability to discharge patient with loop recorder VS, I&O, 24H, Fishbone VS, I&O, 24H, Fishbone Vital Signs Date Time Temp Pulse Resp B/P Pulse Ox O2 Delivery O2 Flow Rate FiO2 04/07/16 12:36 96 Room Air 04/07/16 12:00 96.3 61 18 133/70 I&O- Last 24 Hours up to 6 AM 04/07/16 06:00 Intake Total 2950 ml Output Total 2300 ml Balance 650 ml Laboratory Tests 2 04/07/16 04:44: Anion Gap 11, C-Reactive Protein, Quantitative < 0.30, Blood Urea Nitrogen 21H, Creatinine 0.86, Sodium Level 139, Potassium Level 4.3, Chloride Level 110H, Carbon Dioxide Level 18L, Calcium Level 8.3L, Glomerular Filtration Rate > 60.0 , Magnesium Level 2.0 Laboratory Tests 04/07/16 04:44 Calcium Level 8.3 L, Red Blood Count 5.12, Mean Corpuscular Volume 80.3, Mean Corpuscular Hemoglobin 25.8 L, Mean Corpuscular Hemoglobin Concent 32.1, Red Cell Distribution Width 14.8 H Microbiology 04/04/16 Blood Culture - Preliminary, Resulted No Growth after 72 hours. All specime... 04/04/16 Blood Culture - Preliminary, Resulted No Growth after 72 hours. All specime... CHRISTIE FOSTER Apr 07, 2016 13:32
--- NOTE | 2016-04-07 18:20 | DS.PDOC ---
Discharge Summary General Date of Admission Apr 03, 2016 at 23:11 Date of Discharge Apr 07, 2016 at 15:10 Discharge Summary DATE OF ADMISSION: 04/03/2016 DATE OF DISCHARGE: 04/07/2016 PRIMARY CARE PHYSICIAN: Dr. Hamm DISCHARGE DIAGNOS(E)S: Syncope HPI & HOSPITAL COURSE: 50-year-old male with CAD with prior [place], history of CVA, hyperlipidemia, ELADIA, nasal and orbital fractures in 2016 who presented with syncope. At the time that he left AMA, the patient was awaiting arrangements for loop recorder. Despite multiple conversations between myself and the patient, explaining why the loop recorder was important and why the patient was not able to be formally discharged today, as well as the risks of leaving AMA, which would include , the patient chose to leave AMA. Below is a summary of his stay prior to his decision to leave AMA. 1. Syncope: Thus far, workup is unrevealing. Echo is remarkable only for moderate ulnar hypertension. Telemetry has been unrevealing. Carotid ultrasound , CT of the head, MRI and MRA of the brain are unremarkable. At this time, it is felt that the patient would benefit from Loop monitor. Dr. Gregory has begun these arrangements, and we hope that the patient will be up to be discharged on Friday or Friday with a loop monitor. 2. Recent facial trauma: The patient underwent surgery with Dr. Shook and Dr. Austin at the end of March. At this time, they have recommended Decadron, Diamox and Augmentin, as well as TobraDex to the right eye and ice packs. They also are recommending sodium chloride nasal spray. They also would like tape tarsorrhaphy at bedtime. Dr. Shook has noted that the patient needs to be evaluated by an orbital surgeon in [place], and is recommending follow-up with Dr. Karsten Allred. It does not appear, that Augmentin comes in IV form, as has been recommended by Dr. Shook, so at this time we will continue with the Quangaro and clarify with Dr. Shook. 3. CAD with prior [place], hx of CVA, HLD: Given the recent hemorrhagic trauma to his orbital area that was recently surgically repaired, we are holding the patient's aspirin. The patient does not report being on a beta krysta or a statin at home. He would benefit from evaluation by his primary physicians about adding these to his regimen. 4. ELADIA: Given the patient's facial trauma, he is not currently a candidate for CPAP. 5. Leukocytosis: The patient's white count was 16.7 upon admission and this slowly trended down to 13.5. He has been afebrile, and there is been no sign of infection. I suspect that this is reactive from his trauma and recent surgery. We'll continue to monitor. DVT prophylaxis: SCDs Dispo: pending reevaluation by Dr. Shook and ability to discharge patient with loop recorder DISPOSITION: AGAINST MEDICAL ADVICE Vital Signs/I&Os Vital Signs Date Time Temp Pulse Resp B/P Pulse Ox O2 Delivery O2 Flow Rate FiO2 04/07/16 12:36 96 Room Air 04/07/16 12:00 96.3 61 18 133/70 I&O- Last 24 Hours up to 6 AM 04/07/16 06:00 Intake Total 2950 ml Output Total 2300 ml Balance 650 ml Laboratory Data Labs 24H Laboratory Tests 2 04/07/16 04:44: Anion Gap 11, C-Reactive Protein, Quantitative < 0.30, Blood Urea Nitrogen 21H, Creatinine 0.86, Sodium Level 139, Potassium Level 4.3, Chloride Level 110H, Carbon Dioxide Level 18L, Calcium Level 8.3L, Glomerular Filtration Rate > 60.0 , Magnesium Level 2.0 CBC/BMP Laboratory Tests 04/07/16 04:44 Calcium Level 8.3 L, Red Blood Count 5.12, Mean Corpuscular Volume 80.3, Mean Corpuscular Hemoglobin 25.8 L, Mean Corpuscular Hemoglobin Concent 32.1, Red Cell Distribution Width 14.8 H Microbiology Microbiology 04/04/16 Blood Culture - Preliminary, Resulted No Growth after 72 hours. All specime... 04/04/16 Blood Culture - Preliminary, Resulted No Growth after 72 hours. All specime... Medications Scheduled Acetazolamide (Acetazolamide) 250 Mg Tab 250 MG PO BID Amoxicillin/Clavulanate Potas (Augmentin 875-125 mg) 1 Tab Tab 875 MG PO BID Aspirin (Aspirin EC) 81 Mg Tabec 81 MG PO DAILY BEEN A COUPLE OF WEEKS SINCE PATIENT HAD TO STOP TAKING THIS MED PRIOR TO SURGERY. HAS NOT BEEN TOLD TO CONTINUE. Cetirizine HCl (Zyrtec Allergy) 10 Mg Cap 10 MG PO DAILY Sodium Chloride (Cassia Nasal [place]) 0.65 % Spr 2 SPRAY NA TID EACH NOSTRIL Tobramycin/Dexamethasone (Tobradex 0.3-0.1 %) 1 Dose/3.5 Gm Oint 1 DOSE OD QID 1/2" RIBBON Scheduled PRN Albuterol Sulfate (Ventolin Hfa) 200 Puff/8 Gm Aers 2 PUFFS INH BID PRN PRN SHORTNESS OF BREATH Naproxen (Naproxen) 500 Mg Tab 500 MG PO BID PRN PRN PAIN HAS NOT TAKEN IN COUPLE OF WEEKS PATIENT WAS TOLD TO STOP TAKING PRIOR TO SURGERY. HAS NOT BEEN TOLD TO CONTINUE YET. Nitroglycerin (Nitrostat) 0.4 Mg Subl 0.4 MG SL NITRO PRN PRN ANGINA Tramadol HCl (Tramadol Hydrochloride) 50 Mg Tab 50 MG PO Q6HP PRN PRN PAIN Allergies Coded Allergies: Bee Venom (Unverified Allergy, Severe, anaphylaxis, 03/29/16) Food (Unverified Allergy, Severe, 03/29/16) non-dairy creamer and, artificial grape flavoring-sweatballs, heart races, asparagus-rash Shellfish Allergy (Unverified Allergy, Severe, anaphylaxis, 03/29/16) Acetaminophen (Verified Allergy, Mild, HIVES,SLEEPY, VOMITING, 06/07/12) Prednisone (Verified Allergy, Unknown, 05/20/14) CHRISTIE FOSTER Apr 07, 2016 18:20
--- NOTE | 2016-04-08 11:06 | IPN ---
DATE: 04/08/2016 I had an opportunity to talk to Mr. Sandoval over the phone to address some of his concerns and what he had vocalized was that he did not feel that he was being promptly treated for his nasal fracture, as well as facial fractures. I did go over the plan for him as far as following up with Dr. Austin this week, which he assures me he has already made contact with Dr. Austin's office and is trying to reschedule this appointment since he is having difficulty with finding transportation due to his eye being swollen, but he does assure me that he will followup accordingly, which I did stress the importance of this, as well. Additionally, Dr. Arsalan Shook has a followup for him scheduled 04/19/2016 at 9:30 a.m. I gave him the phone number for the office, [phone]. Encouraged him to make sure that he touches base with them, since he does have extensive orbital fractures and that he may need following care to be done through [facility]. We did discuss that likely he will need some of the swelling to come out before any further surgical intervention will be done. However, he was encouraged to stay in close contact with both Dr. Austin from ears, nose, and throat (ENT) and Dr. Shook from ophthalmology should he develop any issues with his visual acuity, visual field, or any other concerning issues related to the nasal fracture. Concerning the admission for syncope that the hospitalist service was taking care of, Mr. Sandoval did inform me that he was relatively happy with this hospital stay and felt that he was informed as far as the rule-out syncope workup we were doing, and he understands the importance of following up with Dr. Solis's office for a loop recorder. I will resubmit the paperwork again to Dr. Solis's office today. I have spoken to Dr. Solis briefly, who does again want the patient to followup with him for evaluation of a loop recorder. Mr. Sandoval was given the phone number for Dr. Solis's office at [phone], and he informed me that he would try to call him either today or tomorrow to make sure that this appointment is taken care of. He does understand that the syncope has not been completely ruled out, as an arrhythmia or a cardiac cause; and he agrees that it is important that he follows up; and should Dr. Solis want to proceed with the loop recorder, he understands that this will be a long-term monitoring system, to make sure that he has no adverse arrhythmias that could be causing his syncope. I do believe that most of his questions were answered. He was given a contact number for here at the hospital. I did give him the hospitalist medical secretary's number at [phone] and an alternate number of [phone] should he need any further assistance from the hospitalist's group.
== END 2016-04-07 15:10 | disposition left against medical advice (07) | DRG 204 ==
LOC: M ED 18:57 → M ED INP 23:11 → M PCU 04-04 11:50
PROVIDERS: ADMIT Hospitalist; ATTEND Hospitalist
DX: R55 Syncope and collapse (principal); E78.5 Hyperlipidemia, unspecified; H11.31 Conjunctival hemorrhage, right eye; S02.2XXD Fracture of nasal bones, subsequent encounter for fracture with routine healing; F17.210 Nicotine dependence, cigarettes, uncomplicated; Z79.82 Long term (current) use of aspirin; Z79.899 Other long term (current) drug therapy; I25.10 Atherosclerotic heart disease of native coronary artery without angina pectoris; G47.33 Obstructive sleep apnea (adult) (pediatric); I25.2 Old myocardial infarction; H02.401 Unspecified ptosis of right eyelid; Z86.73 Personal history of transient ischemic attack (TIA), and cerebral infarction without residual deficits; Z88.6 Allergy status to analgesic agent; Z91.018 Allergy to other foods; Z91.030 Bee allergy status; Z91.013 Allergy to seafood; Z88.8 Allergy status to other drugs, medicaments and biological substances; Y04.0XXD Assault by unarmed brawl or fight, subsequent encounter

== ENCOUNTER 2016-04-10 10:38 | Emergency (ER) | payer OTHER ==
[~2016-04-10 10:38] MED LIST changes: +ACET25TA PO; +ASPI81TAEC PO; +NAPR500T2 PO
[2016-04-10] MEDS ORDERED: TETRACAINE 0.5% OPHTH SOLN 4ML As Ordered ONE (13:09)
--- NOTE | 2016-04-10 14:39 | EDDOCDS ---
Nurse's Notes [facility] Name: Abhijit Sandoval Age: 50 yrs Sex: Male : 1965 Arrival Date: 04/10/2016 Time: 10:38 Bed I10 / 23 Private MD: Juanito Hamm MD Diagnosis: Ocular pain, right eye-post operative, stable Presentation: 04/10 10:48 Presenting complaint: Patient states: on the had nasal surgery with ENT and eye hs1 started to swell in recovery - Bouchra ended up draining eye of blood and patient admitted later on the night for syncope and signed out AMA Friday the . here today because eye has swollen back up. Eye noticeably swollen and yellow drainage noted since this am. Mechanism of Injury: surgical?. The patient reports a positive loss of vision. The patient's loss of vision began after surgery. Adult Sepsis Screening: The patient does not have new or worsening altered mentation. Patient's respiratory rate is less than 22. Systolic blood pressure is greater than 100. Patient has a qSOFA score of 0- Negative Sepsis Screen. Suicide/Homicide risk assessment- the patient denies having any suicidal and/or homicidal ideations and does not present with any other emotional, behavioral or mental health complaints. Status: Patient is not a human service technician or dependent. Transition of care: patient was not received from another setting of care. 10:48 Acuity: LOUIS Level 3 hs1 10:48 Method Of Arrival: Walkin/Carried/Asstd hs1 Triage Assessment: 10:56 General: Appears in no apparent distress, Behavior is appropriate for age, cooperative. hs1 Pain: Location: right eye Pain currently is 6 out of 10 on a pain scale. Quality of pain is described as pressure. HIV screening NA for this visit Offered previously. EENT: Eyes with exudate noted from right eye patient reports feels gritty. Derm: Skin is normal, Bruising that is dark purple, yellow, on right eye. Historical: - Allergies: asparagus; Bees; Grape Jelly; Non-dairy creamer; steroids ( heart rate high); tylenolsyncopal episode that last for 24-48 hours; - Home Meds: 1. tramadol 250 mg Oral Tb24 every 6 hours as needed for pain (Last dose: 04/10/2016 06:00) 2. oxycodone 5 mg Oral tab 1 tab every 4-6 hours (Last dose: 04/09/2016 22:00) 3. Augmentin 875-125 mg Oral tab 1 tab every 12 hours (Last dose: 04/10/2016 06:00) 4. Proventil HFA 90 mcg/actuation inhalation HFAA 2 puffs every 12 hours as needed 5. nitroglycerin 0.4 mg SL subl 1 tab as needed 6. TobraDex 0.3-0.1 % Opht oint 1 drop right 2 times per day per [facility] - PMHx: CAD; CVAX2; fractured nose---2015; hyperlipidemia; [place]; Sleep Apnea w/ CPAP; - PSHx: right knee surgery; Hernia repair; nasal septum surgery (March 2016); - Social history: Smoking status: Patient uses tobacco products, light tobacco smoker. No barriers to communication noted, The patient speaks fluent Salvadorean, Speaks appropriately for age. - Family history: Not pertinent. - : The pt / caregiver states he / she is not on anticoagulants. Home medication list is obtained from the patient. - Exposure Risk Screening:: None identified. Screenin:37 Screening information is obtained from the patient. Fall risk: No risks identified. jc4 Assistance ADL's: requires no assistance with activities of daily living. Abuse/DV Screen: The patient / caregiver reports he/she is: not in a situation that causes fear, pain or injury. Nutritional screening: No deficits noted. Advance Directives: Currently, there is no health care proxy. There is no active DNR order. There is no living will. There is no Power of Clinical Documentation Developer. home support is adequate. Assessment: 13:14 Adult Sepsis Screening: The patient does not have new or worsening altered mentation. dsf Patient's respiratory rate is less than 22. Systolic blood pressure is greater than 100. Patient has a qSOFA score of 0- Negative Sepsis Screen. General: Appears in no apparent distress, Behavior is appropriate for age, cooperative. Pain: Location: right eye Pain currently is 8 out of 10 on a pain scale. Quality of pain is described as feels like sand paper scratching the eye. Neurological: Level of Consciousness is awake, alert. EENT: Sclera/Cornea are reddened in right eye. Respiratory: Airway is patent Respiratory effort is even, unlabored, Respiratory pattern is regular, symmetrical. Derm: Skin is pink, warm & dry. Bruising that is dark purple, on under right eye Swollen area noted on under right eye. 14:20 General: pharmacy contacted for meds. PA aware. ttb 14:36 General: Appears in no apparent distress, Behavior is cooperative. Pain: Pain currently jc4 is 8 out of 10 on a pain scale. Neurological: Level of Consciousness is awake, alert, Oriented to person, place, time. Respiratory: Airway is patent Respiratory effort is even, unlabored, Respiratory pattern is regular, symmetrical. Derm: Skin is pink, warm & dry. Bruising that is dark purple, on right eye. Vital Signs: 10:41 BP 134 / 79; Pulse 93; Resp 18; Temp 98.2(O); Pulse Ox 100% ; Weight 78.93 kg (R); jrd Height 6 ft. 0 in. (182.88 cm) (R); Pain 6/10; 10:41 Body Mass Index 23.60 (78.93 kg, 182.88 cm) [facility] Vitals: 10:41 Log In Time: April 10, 2016 at 10:37. jrd Visual Acuity: 13:14 Left Eye Visual acuity 20/30, ; Right Eye Visual acuity 20/40, ; Both Eyes Visual dsf acuity 20/25; Without Lenses; ED Course: 10:40 Patient visited by Chris Ramirez PCA. jrd 10:40 Juanito Hamm is Private Physician. jrd 10:40 Patient moved to Waiting jrd 10:41 Patient visited by Chris Ramirez PCA. jrd 10:41 Patient moved to Pre RCE jrd 10:52 Triage Initiated hs1 12:20 Patient moved to Triage 3 ct3 12:41 Donny James PA-C is PHCP. ar2 12:41 Nakul Patiño MD is Attending Physician. ar2 12:41 Patient visited by Donny James PA-C. ar2 13:07 Celine Barker, DANIELLE is Primary Nurse. mlb1 13:07 Jumana Rader,DANIELLE is Primary Nurse. mlb1 13:07 Patient moved to I10 / 23 mlb1 13:15 Patient visited by Margaret Olguin RN. dsf 14:21 Patient visited by Magalis Man RN. ttb 14:26 Juanito Hamm is Referral Physician. ar2 14:37 The patient / caregiver is instructed regarding the plan of care and ED course. jc4 14:37 No IV's were initiated during this patient's visit. No procedures done that require jc4 assistance. Administered Medications: 13:48 Drug: Tetracaine (PF) 2 drps [tetracaine HCl (PF) 0.5 % eye drops (2 drps)] {Note: by dsf donny Nevarez} Route: Ophthalmic; Site: right eye; Order Results: There are currently no results for this order. Outcome: 14:26 Discharge ordered by Provider. ar2 14:38 Discharge Assessment: Patient awake, alert and oriented x 3. No cognitive and/or jc4 functional deficits noted. Patient verbalized understanding of disposition instructions. patient administered narcotics - no. The following High Risk Discharge criteria are identified: None. Discharged to home ambulatory. Condition: stable. Discharge instructions given to patient, Instructed on discharge instructions, follow up and referral plans. medication usage, Demonstrated understanding of instructions, medications, Pt was receptive of discharge instructions/ teaching. No special radiology studies were completed. Property :Personal belongings accompany Pt. 14:38 Patient left the ED. jc4 Signatures: Paul David RN RN mlb1 Donny James, BRET PAGriffinC ar2 Andree Banks, RN RN hs1 Celine Barker RN RN jc4 Kera Mejia, PIE DOUGH ROLLER PIE DOUGH ROLLER ct3 Margaret Olguin RN RN dsf Magalis Man RN RN ttb Chris Ramirez, PIE DOUGH ROLLER PIE DOUGH ROLLER jrd MTDD
--- NOTE | 2016-04-10 14:39 | EDDOCDS ---
Physician Documentation [facility] Name: Abhijit Sandoval Age: 50 yrs Sex: Male : 1965 Arrival Date: 04/10/2016 Time: 10:38 Bed I10 / 23 Private MD: Juanito Hamm MD Disposition: 04/10/16 14:26 Discharged to Home/Self Care. Impression: Ocular pain, right eye - post operative, stable. - Condition is Stable. - Prescriptions for Refresh Lacri- Lube 56.8-42.5 % Ophthalmic Ointment - apply 1/4 inch ribbon by OPHTHALMIC route every 2-3 hours As needed apply to conjuctival sac; 1 tube. - Medication Reconciliation, Local Pharmacy Hours form. - Follow up: Juanito Hamm; When: Call to arrange an appointment; Reason: to get update on orbital surgery referral. - Problem is new. - Symptoms are unchanged. - Notes: your case was discussed with Dr. Shook. use ointment as needed for dry, irritated eye. call Dr. Hamm's office for referral follow up. return to ER if worseing vision, fevers or swelling Historical: - Allergies: asparagus; Bees; Grape Jelly; Non-dairy creamer; steroids ( heart rate high); tylenolsyncopal episode that last for 24-48 hours; - Home Meds: 1. tramadol 250 mg Oral Tb24 every 6 hours as needed for pain (Last dose: 04/10/2016 06:00) 2. oxycodone 5 mg Oral tab 1 tab every 4-6 hours (Last dose: 04/09/2016 22:00) 3. Augmentin 875-125 mg Oral tab 1 tab every 12 hours (Last dose: 04/10/2016 06:00) 4. Proventil HFA 90 mcg/actuation inhalation HFAA 2 puffs every 12 hours as needed 5. nitroglycerin 0.4 mg SL subl 1 tab as needed 6. TobraDex 0.3-0.1 % Opht oint 1 drop right 2 times per day per [facility] pharmacy - PMHx: CAD; CVAX2; fractured nose---2016; hyperlipidemia; [place]; Sleep Apnea w/ CPAP; - PSHx: right knee surgery; Hernia repair; nasal septum surgery (March 2016); - Social history: Smoking status: Patient uses tobacco products, light tobacco smoker. No barriers to communication noted, The patient speaks fluent Latvian, Speaks appropriately for age. - Family history: Not pertinent. - : The pt / caregiver states he / she is not on anticoagulants. Home medication list is obtained from the patient. - Exposure Risk Screening:: None identified. Vital Signs: 04/10 10:41 BP 134 / 79; Pulse 93; Resp 18; Temp 98.2(O); Pulse Ox 100% ; Weight 78.93 kg / 174.01 jrd lbs (R); Height 6 ft. 0 in. (182.88 cm) (R); Pain 6/10; 10:41 Body Mass Index 23.60 (78.93 kg, 182.88 cm) jrd Visual Acuity: 13:14 Left Eye Visual acuity 20/30, ; Right Eye Visual acuity 20/40, ; Both Eyes Visual dsf acuity 20/25; Without Lenses; MDM: 13:08 Visual Acuity ordered. ar2 13:08 Tetracaine (PF) Drops 0.5 % 2 drps Ophthalmic once ordered. ar2 14:37 Financial registration complete. lg Administered Medications: 13:48 Drug: Tetracaine (PF) 2 drps [tetracaine HCl (PF) 0.5 % eye drops (2 drps)] {Note: by dsf donny Nevarez} Route: Ophthalmic; Site: right eye; Signatures: Tong Renee, Abhijeet Reg Donny James PA-C PADennis ar2 Andree Banks RN RN hs1 Celine Barker RN RN jc4 Magalis Man RN RN ttb Fuller, Desiree RN dsf MTDD
--- NOTE | 2016-04-12 15:39 | EDDOCDS ---
Physician Documentation [facility] Name: Abhijit Sandoval Age: 50 yrs Sex: Male : 1965 Arrival Date: 04/10/2016 Time: 10:38 Bed I10 / 23 Private MD: Juanito Hamm MD Disposition: 04/10/16 14:26 Discharged to Home/Self Care. Impression: Ocular pain, right eye - post operative, stable. - Condition is Stable. - Prescriptions for Refresh Lacri- Lube 56.8-42.5 % Ophthalmic Ointment - apply 1/4 inch ribbon by OPHTHALMIC route every 2-3 hours As needed apply to conjuctival sac; 1 tube. - Medication Reconciliation, Local Pharmacy Hours form. - Follow up: Juanito Hamm; When: Call to arrange an appointment; Reason: to get update on orbital surgery referral. - Problem is new. - Symptoms are unchanged. - Notes: your case was discussed with Dr. Shook. use ointment as needed for dry, irritated eye. call Dr. Hamm's office for referral follow up. return to ER if worseing vision, fevers or swelling Historical: - Allergies: asparagus; Bees; Grape Jelly; Non-dairy creamer; steroids ( heart rate high); tylenolsyncopal episode that last for 24-48 hours; - Home Meds: 1. tramadol 250 mg Oral Tb24 every 6 hours as needed for pain (Last dose: 04/10/2016 06:00) 2. oxycodone 5 mg Oral tab 1 tab every 4-6 hours (Last dose: 04/09/2016 22:00) 3. Augmentin 875-125 mg Oral tab 1 tab every 12 hours (Last dose: 04/10/2016 06:00) 4. Proventil HFA 90 mcg/actuation inhalation HFAA 2 puffs every 12 hours as needed 5. nitroglycerin 0.4 mg SL subl 1 tab as needed 6. TobraDex 0.3-0.1 % Opht oint 1 drop right 2 times per day per [facility] pharmacy - PMHx: CAD; CVAX2; fractured nose---2016; hyperlipidemia; [place]; Sleep Apnea w/ CPAP; - PSHx: right knee surgery; Hernia repair; nasal septum surgery (March 2016); - Social history: Smoking status: Patient uses tobacco products, light tobacco smoker. No barriers to communication noted, The patient speaks fluent Macedonian, Speaks appropriately for age. - Family history: Not pertinent. - : The pt / caregiver states he / she is not on anticoagulants. Home medication list is obtained from the patient. - Exposure Risk Screening:: None identified. Vital Signs: 04/10 10:41 BP 134 / 79; Pulse 93; Resp 18; Temp 98.2(O); Pulse Ox 100% ; Weight 78.93 kg / 174.01 jrd lbs (R); Height 6 ft. 0 in. (182.88 cm) (R); Pain 6/10; 10:41 Body Mass Index 23.60 (78.93 kg, 182.88 cm) jrd Visual Acuity: 13:14 Left Eye Visual acuity 20/30, ; Right Eye Visual acuity 20/40, ; Both Eyes Visual dsf acuity 20/25; Without Lenses; MDM: 13:08 Visual Acuity ordered. ar2 13:08 Tetracaine (PF) Drops 0.5 % 2 drps Ophthalmic once ordered. ar2 14:37 Financial registration complete. lg 15:22 [facility] Payment Agreement was scanned into [employer] and attached to record. lg Administered Medications: 13:48 Drug: Tetracaine (PF) 2 drps [tetracaine HCl (PF) 0.5 % eye drops (2 drps)] {Note: by dsf donny Nevarez} Route: Ophthalmic; Site: right eye; Signatures: Tong Renee, Reg Reg Donny James PA-C PADennis ar2 Andree Banks RN RN hs1 Celine Barker RN RN jc4 Magalis Man RN RN ttb Fuller, Desiree RN dsf The chart was reviewed and I authenticate all verbal orders and agree with the evaluation and treatment provided.Attachments: 15:22 [facility] [place] lg Chart Complete MTDD
--- NOTE | 2016-04-12 15:39 | EDDOCDS ---
Physician Documentation [facility] Name: Abhijit Sandoval Age: 50 yrs Sex: Male : 1965 Arrival Date: 04/10/2016 Time: 10:38 Bed I10 / 23 Private MD: Juanito Hamm MD Disposition: 04/10/16 14:26 Discharged to Home/Self Care. Impression: Ocular pain, right eye - post operative, stable. - Condition is Stable. - Prescriptions for Refresh Lacri- Lube 56.8-42.5 % Ophthalmic Ointment - apply 1/4 inch ribbon by OPHTHALMIC route every 2-3 hours As needed apply to conjuctival sac; 1 tube. - Medication Reconciliation, Local Pharmacy Hours form. - Follow up: Juanito Hamm; When: Call to arrange an appointment; Reason: to get update on orbital surgery referral. - Problem is new. - Symptoms are unchanged. - Notes: your case was discussed with Dr. Shook. use ointment as needed for dry, irritated eye. call Dr. Hamm's office for referral follow up. return to ER if worseing vision, fevers or swelling Historical: - Allergies: asparagus; Bees; Grape Jelly; Non-dairy creamer; steroids ( heart rate high); tylenolsyncopal episode that last for 24-48 hours; - Home Meds: 1. tramadol 250 mg Oral Tb24 every 6 hours as needed for pain (Last dose: 04/10/2016 06:00) 2. oxycodone 5 mg Oral tab 1 tab every 4-6 hours (Last dose: 04/09/2016 22:00) 3. Augmentin 875-125 mg Oral tab 1 tab every 12 hours (Last dose: 04/10/2016 06:00) 4. Proventil HFA 90 mcg/actuation inhalation HFAA 2 puffs every 12 hours as needed 5. nitroglycerin 0.4 mg SL subl 1 tab as needed 6. TobraDex 0.3-0.1 % Opht oint 1 drop right 2 times per day per [facility] pharmacy - PMHx: CAD; CVAX2; fractured nose---2016; hyperlipidemia; [place]; Sleep Apnea w/ CPAP; - PSHx: right knee surgery; Hernia repair; nasal septum surgery (March 2016); - Social history: Smoking status: Patient uses tobacco products, light tobacco smoker. No barriers to communication noted, The patient speaks fluent Lithuanian, Speaks appropriately for age. - Family history: Not pertinent. - : The pt / caregiver states he / she is not on anticoagulants. Home medication list is obtained from the patient. - Exposure Risk Screening:: None identified. Vital Signs: 04/10 10:41 BP 134 / 79; Pulse 93; Resp 18; Temp 98.2(O); Pulse Ox 100% ; Weight 78.93 kg / 174.01 jrd lbs (R); Height 6 ft. 0 in. (182.88 cm) (R); Pain 6/10; 10:41 Body Mass Index 23.60 (78.93 kg, 182.88 cm) jrd Visual Acuity: 13:14 Left Eye Visual acuity 20/30, ; Right Eye Visual acuity 20/40, ; Both Eyes Visual dsf acuity 20/25; Without Lenses; MDM: 13:08 Visual Acuity ordered. ar2 13:08 Tetracaine (PF) Drops 0.5 % 2 drps Ophthalmic once ordered. ar2 14:37 Financial registration complete. lg 15:22 [facility] Payment Agreement was scanned into [employer] and attached to record. lg Administered Medications: 13:48 Drug: Tetracaine (PF) 2 drps [tetracaine HCl (PF) 0.5 % eye drops (2 drps)] {Note: by dsf donny Nevarez} Route: Ophthalmic; Site: right eye; Signatures: Tong Renee, Reg Reg Donny James PA-C PADennis ar2 Andree Banks RN RN hs1 Celine Barker RN RN jc4 Magalis Man RN RN ttb Fuller, Desiree RN dsf The chart was reviewed and I authenticate all verbal orders and agree with the evaluation and treatment provided.Attachments: 15:22 [facility] [place] lg Chart Complete MTDD
--- NOTE | 2016-04-12 15:39 | EDDOCDS ---
Nurse's Notes [facility] Name: Abhijit Sandoval Age: 50 yrs Sex: Male : 1965 Arrival Date: 04/10/2016 Time: 10:38 Bed I10 / 23 Private MD: Juanito Hamm MD Diagnosis: Ocular pain, right eye-post operative, stable Presentation: 04/10 10:48 Presenting complaint: Patient states: on the had nasal surgery with ENT and eye hs1 started to swell in recovery - Bouchra ended up draining eye of blood and patient admitted later on the night for syncope and signed out AMA Friday the . here today because eye has swollen back up. Eye noticeably swollen and yellow drainage noted since this am. Mechanism of Injury: surgical?. The patient reports a positive loss of vision. The patient's loss of vision began after surgery. Adult Sepsis Screening: The patient does not have new or worsening altered mentation. Patient's respiratory rate is less than 22. Systolic blood pressure is greater than 100. Patient has a qSOFA score of 0- Negative Sepsis Screen. Suicide/Homicide risk assessment- the patient denies having any suicidal and/or homicidal ideations and does not present with any other emotional, behavioral or mental health complaints. Status: Patient is not a library services coordinator or dependent. Transition of care: patient was not received from another setting of care. 10:48 Acuity: LOUIS Level 3 hs1 10:48 Method Of Arrival: Walkin/Carried/Asstd hs1 Triage Assessment: 10:56 General: Appears in no apparent distress, Behavior is appropriate for age, cooperative. hs1 Pain: Location: right eye Pain currently is 6 out of 10 on a pain scale. Quality of pain is described as pressure. HIV screening NA for this visit Offered previously. EENT: Eyes with exudate noted from right eye patient reports feels gritty. Derm: Skin is normal, Bruising that is dark purple, yellow, on right eye. Historical: - Allergies: asparagus; Bees; Grape Jelly; Non-dairy creamer; steroids ( heart rate high); tylenolsyncopal episode that last for 24-48 hours; - Home Meds: 1. tramadol 250 mg Oral Tb24 every 6 hours as needed for pain (Last dose: 04/10/2016 06:00) 2. oxycodone 5 mg Oral tab 1 tab every 4-6 hours (Last dose: 04/09/2016 22:00) 3. Augmentin 875-125 mg Oral tab 1 tab every 12 hours (Last dose: 04/10/2016 06:00) 4. Proventil HFA 90 mcg/actuation inhalation HFAA 2 puffs every 12 hours as needed 5. nitroglycerin 0.4 mg SL subl 1 tab as needed 6. TobraDex 0.3-0.1 % Opht oint 1 drop right 2 times per day per [facility] pharmacy - PMHx: CAD; CVAX2; fractured nose---2015; hyperlipidemia; [place]; Sleep Apnea w/ CPAP; - PSHx: right knee surgery; Hernia repair; nasal septum surgery (March 2016); - Social history: Smoking status: Patient uses tobacco products, light tobacco smoker. No barriers to communication noted, The patient speaks fluent Greek, Speaks appropriately for age. - Family history: Not pertinent. - : The pt / caregiver states he / she is not on anticoagulants. Home medication list is obtained from the patient. - Exposure Risk Screening:: None identified. Screenin:37 Screening information is obtained from the patient. Fall risk: No risks identified. jc4 Assistance ADL's: requires no assistance with activities of daily living. Abuse/DV Screen: The patient / caregiver reports he/she is: not in a situation that causes fear, pain or injury. Nutritional screening: No deficits noted. Advance Directives: Currently, there is no health care proxy. There is no active DNR order. There is no living will. There is no Power of Lithoplate Maker. home support is adequate. Assessment: 13:14 Adult Sepsis Screening: The patient does not have new or worsening altered mentation. dsf Patient's respiratory rate is less than 22. Systolic blood pressure is greater than 100. Patient has a qSOFA score of 0- Negative Sepsis Screen. General: Appears in no apparent distress, Behavior is appropriate for age, cooperative. Pain: Location: right eye Pain currently is 8 out of 10 on a pain scale. Quality of pain is described as feels like sand paper scratching the eye. Neurological: Level of Consciousness is awake, alert. EENT: Sclera/Cornea are reddened in right eye. Respiratory: Airway is patent Respiratory effort is even, unlabored, Respiratory pattern is regular, symmetrical. Derm: Skin is pink, warm & dry. Bruising that is dark purple, on under right eye Swollen area noted on under right eye. 14:20 General: pharmacy contacted for meds. PA aware. ttb 14:36 General: Appears in no apparent distress, Behavior is cooperative. Pain: Pain currently jc4 is 8 out of 10 on a pain scale. Neurological: Level of Consciousness is awake, alert, Oriented to person, place, time. Respiratory: Airway is patent Respiratory effort is even, unlabored, Respiratory pattern is regular, symmetrical. Derm: Skin is pink, warm & dry. Bruising that is dark purple, on right eye. Vital Signs: 10:41 BP 134 / 79; Pulse 93; Resp 18; Temp 98.2(O); Pulse Ox 100% ; Weight 78.93 kg (R); jrd Height 6 ft. 0 in. (182.88 cm) (R); Pain 6/10; 10:41 Body Mass Index 23.60 (78.93 kg, 182.88 cm) [facility] Vitals: 10:41 Log In Time: April 10, 2016 at 10:37. jrd Visual Acuity: 13:14 Left Eye Visual acuity 20/30, ; Right Eye Visual acuity 20/40, ; Both Eyes Visual dsf acuity 20/25; Without Lenses; ED Course: 10:40 Patient visited by Chris Ramirez PCA. jrd 10:40 Juanito Hamm is Private Physician. jrd 10:40 Patient moved to Waiting jrd 10:41 Patient visited by Chris Ramirez PCA. jrd 10:41 Patient moved to Pre RCE jrd 10:52 Triage Initiated hs1 12:20 Patient moved to Triage 3 ct3 12:41 Donny James PA-C is PHCP. ar2 12:41 Nakul Patiño MD is Attending Physician. ar2 12:41 Patient visited by Donny James PA-C. ar2 13:07 Celine Barker, DANIELLE is Primary Nurse. mlb1 13:07 Jumana Rader,DANIELLE is Primary Nurse. mlb1 13:07 Patient moved to I10 / 23 mlb1 13:15 Patient visited by Margaret Olguin RN. dsf 14:21 Patient visited by Magalis Man RN. ttb 14:26 Juanito Hamm is Referral Physician. ar2 14:37 The patient / caregiver is instructed regarding the plan of care and ED course. jc4 14:37 No IV's were initiated during this patient's visit. No procedures done that require jc4 assistance. 15:22 [facility] Payment Agreement was scanned into [employer] and attached to record. lg Administered Medications: 13:48 Drug: Tetracaine (PF) 2 drps [tetracaine HCl (PF) 0.5 % eye drops (2 drps)] {Note: by hernan Nevarez} Route: Ophthalmic; Site: right eye; Order Results: There are currently no results for this order. Outcome: 14:26 Discharge ordered by Provider. ar2 14:38 Discharge Assessment: Patient awake, alert and oriented x 3. No cognitive and/or jc4 functional deficits noted. Patient verbalized understanding of disposition instructions. patient administered narcotics - no. The following High Risk Discharge criteria are identified: None. Discharged to home ambulatory. Condition: stable. Discharge instructions given to patient, Instructed on discharge instructions, follow up and referral plans. medication usage, Demonstrated understanding of instructions, medications, Pt was receptive of discharge instructions/ teaching. No special radiology studies were completed. Property :Personal belongings accompany Pt. 14:38 Patient left the ED. jc4 Signatures: Tong Renee, Abhijeet Reg lg Paul David, RN RN mlb1 Donny James PA-C PA-C ar2 Andree Banks RN RN hs1 Celine Barker RN RN jc4 Kera Mejia, RESIDENTIAL WORKER RESIDENTIAL WORKER ct3 Margaret Olguin,Magalis Rubio RN, DANIELLE RN ttb Chris Ramirez, RESIDENTIAL WORKER RESIDENTIAL WORKER jrd Chart Complete MTDD
--- NOTE | 2016-04-24 10:24 | EDDOCDS ---
Nurse's Notes [facility] Name: Abhijit Sandoval Age: 50 yrs Sex: Male : 1965 Arrival Date: 04/10/2016 Time: 10:38 Bed I10 / 23 Private MD: Juanito Hamm MD Diagnosis: Ocular pain, right eye-post operative, stable Presentation: 04/10 10:48 Presenting complaint: Patient states: on the had nasal surgery with ENT and eye hs1 started to swell in recovery - Bouchra ended up draining eye of blood and patient admitted later on the night for syncope and signed out AMA Friday the . here today because eye has swollen back up. Eye noticeably swollen and yellow drainage noted since this am. Mechanism of Injury: surgical?. The patient reports a positive loss of vision. The patient's loss of vision began after surgery. Adult Sepsis Screening: The patient does not have new or worsening altered mentation. Patient's respiratory rate is less than 22. Systolic blood pressure is greater than 100. Patient has a qSOFA score of 0- Negative Sepsis Screen. Suicide/Homicide risk assessment- the patient denies having any suicidal and/or homicidal ideations and does not present with any other emotional, behavioral or mental health complaints. Status: Patient is not a child and family services worker or dependent. Transition of care: patient was not received from another setting of care. 10:48 Acuity: LOUIS Level 3 hs1 10:48 Method Of Arrival: Walkin/Carried/Asstd hs1 Triage Assessment: 10:56 General: Appears in no apparent distress, Behavior is appropriate for age, cooperative. hs1 Pain: Location: right eye Pain currently is 6 out of 10 on a pain scale. Quality of pain is described as pressure. HIV screening NA for this visit Offered previously. EENT: Eyes with exudate noted from right eye patient reports feels gritty. Derm: Skin is normal, Bruising that is dark purple, yellow, on right eye. Historical: - Allergies: asparagus; Bees; Grape Jelly; Non-dairy creamer; steroids ( heart rate high); tylenolsyncopal episode that last for 24-48 hours; - Home Meds: 1. tramadol 250 mg Oral Tb24 every 6 hours as needed for pain (Last dose: 04/10/2016 06:00) 2. oxycodone 5 mg Oral tab 1 tab every 4-6 hours (Last dose: 04/09/2016 22:00) 3. Augmentin 875-125 mg Oral tab 1 tab every 12 hours (Last dose: 04/10/2016 06:00) 4. Proventil HFA 90 mcg/actuation inhalation HFAA 2 puffs every 12 hours as needed 5. nitroglycerin 0.4 mg SL subl 1 tab as needed 6. TobraDex 0.3-0.1 % Opht oint 1 drop right 2 times per day per [facility] pharmacy - PMHx: CAD; CVAX2; fractured nose---2015; hyperlipidemia; [place]; Sleep Apnea w/ CPAP; - PSHx: right knee surgery; Hernia repair; nasal septum surgery (March 2016); - Social history: Smoking status: Patient uses tobacco products, light tobacco smoker. No barriers to communication noted, The patient speaks fluent Luxembourger, Speaks appropriately for age. - Family history: Not pertinent. - : The pt / caregiver states he / she is not on anticoagulants. Home medication list is obtained from the patient. - Exposure Risk Screening:: None identified. Screenin:37 Screening information is obtained from the patient. Fall risk: No risks identified. jc4 Assistance ADL's: requires no assistance with activities of daily living. Abuse/DV Screen: The patient / caregiver reports he/she is: not in a situation that causes fear, pain or injury. Nutritional screening: No deficits noted. Advance Directives: Currently, there is no health care proxy. There is no active DNR order. There is no living will. There is no Power of [place]. home support is adequate. Assessment: 13:14 Adult Sepsis Screening: The patient does not have new or worsening altered mentation. dsf Patient's respiratory rate is less than 22. Systolic blood pressure is greater than 100. Patient has a qSOFA score of 0- Negative Sepsis Screen. General: Appears in no apparent distress, Behavior is appropriate for age, cooperative. Pain: Location: right eye Pain currently is 8 out of 10 on a pain scale. Quality of pain is described as feels like sand paper scratching the eye. Neurological: Level of Consciousness is awake, alert. EENT: Sclera/Cornea are reddened in right eye. Respiratory: Airway is patent Respiratory effort is even, unlabored, Respiratory pattern is regular, symmetrical. Derm: Skin is pink, warm & dry. Bruising that is dark purple, on under right eye Swollen area noted on under right eye. 14:20 General: pharmacy contacted for meds. PA aware. ttb 14:36 General: Appears in no apparent distress, Behavior is cooperative. Pain: Pain currently jc4 is 8 out of 10 on a pain scale. Neurological: Level of Consciousness is awake, alert, Oriented to person, place, time. Respiratory: Airway is patent Respiratory effort is even, unlabored, Respiratory pattern is regular, symmetrical. Derm: Skin is pink, warm & dry. Bruising that is dark purple, on right eye. Vital Signs: 10:41 BP 134 / 79; Pulse 93; Resp 18; Temp 98.2(O); Pulse Ox 100% ; Weight 78.93 kg (R); jrd Height 6 ft. 0 in. (182.88 cm) (R); Pain 6/10; 10:41 Body Mass Index 23.60 (78.93 kg, 182.88 cm) [facility] Vitals: 10:41 Log In Time: April 10, 2016 at 10:37. jrd Visual Acuity: 13:14 Left Eye Visual acuity 20/30, ; Right Eye Visual acuity 20/40, ; Both Eyes Visual dsf acuity 20/25; Without Lenses; ED Course: 10:40 Patient visited by Chris Ramirez PCA. jrd 10:40 Juanito Hamm is Private Physician. jrd 10:40 Patient moved to Waiting jrd 10:41 Patient visited by Chris Ramirez PCA. jrd 10:41 Patient moved to Pre RCE jrd 10:52 Triage Initiated hs1 12:20 Patient moved to Triage 3 ct3 12:41 Donny James PA-C is PHCP. ar2 12:41 Nakul Patiño MD is Attending Physician. ar2 12:41 Patient visited by Donny James PA-C. ar2 13:07 Celine Barker, DANIELLE is Primary Nurse. mlb1 13:07 Jumana Rader,DANIELLE is Primary Nurse. mlb1 13:07 Patient moved to I10 / 23 mlb1 13:15 Patient visited by Margaret Olguin RN. dsf 14:21 Patient visited by Magalis Man RN. ttb 14:26 Juanito Hamm is Referral Physician. ar2 14:37 The patient / caregiver is instructed regarding the plan of care and ED course. jc4 14:37 No IV's were initiated during this patient's visit. No procedures done that require jc4 assistance. 15:22 [facility] Payment Agreement was scanned into [employer] and attached to record. lg Administered Medications: 13:48 Drug: Tetracaine (PF) 2 drps [tetracaine HCl (PF) 0.5 % eye drops (2 drps)] {Note: by hernan Nevarez} Route: Ophthalmic; Site: right eye; Order Results: There are currently no results for this order. Outcome: 14:26 Discharge ordered by Provider. ar2 14:38 Discharge Assessment: Patient awake, alert and oriented x 3. No cognitive and/or jc4 functional deficits noted. Patient verbalized understanding of disposition instructions. patient administered narcotics - no. The following High Risk Discharge criteria are identified: None. Discharged to home ambulatory. Condition: stable. Discharge instructions given to patient, Instructed on discharge instructions, follow up and referral plans. medication usage, Demonstrated understanding of instructions, medications, Pt was receptive of discharge instructions/ teaching. No special radiology studies were completed. Property :Personal belongings accompany Pt. 14:38 Patient left the ED. jc4 Signatures: Tong Renee, Abhijeet Reg lg Paul David, RN RN mlb1 Donny James PA-C PA-C ar2 Andree Banks RN RN hs1 Celine Barker RN RN jc4 Kera Mejia, COPYWRITING INTERN COPYWRITING INTERN ct3 Margaret Olguin,Magalis Rubio RN, DANIELLE RN ttb Chris Ramirez, COPYWRITING INTERN COPYWRITING INTERN jrd Chart Complete MTDD
--- NOTE | 2016-04-24 10:24 | EDDOCDS ---
Physician Documentation [facility] Name: Abhijit Sandoval Age: 50 yrs Sex: Male : 1965 Arrival Date: 04/10/2016 Time: 10:38 Bed I10 / 23 Private MD: Juanito Hamm MD Disposition: 04/10/16 14:26 Discharged to Home/Self Care. Impression: Ocular pain, right eye - post operative, stable. - Condition is Stable. - Prescriptions for Refresh Lacri- Lube 56.8-42.5 % Ophthalmic Ointment - apply 1/4 inch ribbon by OPHTHALMIC route every 2-3 hours As needed apply to conjuctival sac; 1 tube. - Medication Reconciliation, Local Pharmacy Hours form. - Follow up: Juanito Hamm; When: Call to arrange an appointment; Reason: to get update on orbital surgery referral. - Problem is new. - Symptoms are unchanged. - Notes: your case was discussed with Dr. Shook. use ointment as needed for dry, irritated eye. call Dr. Hamm's office for referral follow up. return to ER if worseing vision, fevers or swelling Historical: - Allergies: asparagus; Bees; Grape Jelly; Non-dairy creamer; steroids ( heart rate high); tylenolsyncopal episode that last for 24-48 hours; - Home Meds: 1. tramadol 250 mg Oral Tb24 every 6 hours as needed for pain (Last dose: 04/10/2016 06:00) 2. oxycodone 5 mg Oral tab 1 tab every 4-6 hours (Last dose: 04/09/2016 22:00) 3. Augmentin 875-125 mg Oral tab 1 tab every 12 hours (Last dose: 04/10/2016 06:00) 4. Proventil HFA 90 mcg/actuation inhalation HFAA 2 puffs every 12 hours as needed 5. nitroglycerin 0.4 mg SL subl 1 tab as needed 6. TobraDex 0.3-0.1 % Opht oint 1 drop right 2 times per day per [facility] pharmacy - PMHx: CAD; CVAX2; fractured nose---2016; hyperlipidemia; [place]; Sleep Apnea w/ CPAP; - PSHx: right knee surgery; Hernia repair; nasal septum surgery (March 2016); - Social history: Smoking status: Patient uses tobacco products, light tobacco smoker. No barriers to communication noted, The patient speaks fluent Luxembourgish, Speaks appropriately for age. - Family history: Not pertinent. - : The pt / caregiver states he / she is not on anticoagulants. Home medication list is obtained from the patient. - Exposure Risk Screening:: None identified. Vital Signs: 04/10 10:41 BP 134 / 79; Pulse 93; Resp 18; Temp 98.2(O); Pulse Ox 100% ; Weight 78.93 kg / 174.01 jrd lbs (R); Height 6 ft. 0 in. (182.88 cm) (R); Pain 6/10; 10:41 Body Mass Index 23.60 (78.93 kg, 182.88 cm) jrd Visual Acuity: 13:14 Left Eye Visual acuity 20/30, ; Right Eye Visual acuity 20/40, ; Both Eyes Visual dsf acuity 20/25; Without Lenses; MDM: 13:08 Visual Acuity ordered. ar2 13:08 Tetracaine (PF) Drops 0.5 % 2 drps Ophthalmic once ordered. ar2 14:37 Financial registration complete. lg 15:22 [facility] Payment Agreement was scanned into [employer] and attached to record. lg Administered Medications: 13:48 Drug: Tetracaine (PF) 2 drps [tetracaine HCl (PF) 0.5 % eye drops (2 drps)] {Note: by dsf donny Nevarez} Route: Ophthalmic; Site: right eye; Signatures: Tong Renee, Reg Reg Donny James PA-C PADennis ar2 Andree Banks RN RN hs1 Celine Barker RN RN jc4 Magalis Man RN RN ttb Fuller, Desiree RN dsf The chart was reviewed and I authenticate all verbal orders and agree with the evaluation and treatment provided.Attachments: 15:22 [facility] Payment Agreement lg Chart Complete MTDD
--- NOTE | 2016-04-24 10:24 | EDDOCDS ---
Physician Documentation [facility] Name: Abhijit Sandoval Age: 50 yrs Sex: Male : 1965 Arrival Date: 04/10/2016 Time: 10:38 Bed I10 / 23 Private MD: Juanito Hamm MD Disposition: 04/10/16 14:26 Discharged to Home/Self Care. Impression: Ocular pain, right eye - post operative, stable. - Condition is Stable. - Prescriptions for Refresh Lacri- Lube 56.8-42.5 % Ophthalmic Ointment - apply 1/4 inch ribbon by OPHTHALMIC route every 2-3 hours As needed apply to conjuctival sac; 1 tube. - Medication Reconciliation, Local Pharmacy Hours form. - Follow up: Juanito Hamm; When: Call to arrange an appointment; Reason: to get update on orbital surgery referral. - Problem is new. - Symptoms are unchanged. - Notes: your case was discussed with Dr. Shook. use ointment as needed for dry, irritated eye. call Dr. Hamm's office for referral follow up. return to ER if worseing vision, fevers or swelling Historical: - Allergies: asparagus; Bees; Grape Jelly; Non-dairy creamer; steroids ( heart rate high); tylenolsyncopal episode that last for 24-48 hours; - Home Meds: 1. tramadol 250 mg Oral Tb24 every 6 hours as needed for pain (Last dose: 04/10/2016 06:00) 2. oxycodone 5 mg Oral tab 1 tab every 4-6 hours (Last dose: 04/09/2016 22:00) 3. Augmentin 875-125 mg Oral tab 1 tab every 12 hours (Last dose: 04/10/2016 06:00) 4. Proventil HFA 90 mcg/actuation inhalation HFAA 2 puffs every 12 hours as needed 5. nitroglycerin 0.4 mg SL subl 1 tab as needed 6. TobraDex 0.3-0.1 % Opht oint 1 drop right 2 times [address] [facility] pharmacy - PMHx: CAD; CVAX2; fractured nose---2016; hyperlipidemia; [place]; Sleep Apnea w/ CPAP; - PSHx: right knee surgery; Hernia repair; nasal septum surgery (March 2016); - Social history: Smoking status: Patient uses tobacco products, light tobacco smoker. No barriers to communication noted, The patient speaks fluent Wolof, Speaks appropriately for age. - Family history: Not pertinent. - : The pt / caregiver states he / she is not on anticoagulants. Home medication list is obtained from the patient. - Exposure Risk Screening:: None identified. Vital Signs: 04/10 10:41 BP 134 / 79; Pulse 93; Resp 18; Temp 98.2(O); Pulse Ox 100% ; Weight 78.93 kg / 174.01 jrd lbs (R); Height 6 ft. 0 in. (182.88 cm) (R); Pain 6/10; 10:41 Body Mass Index 23.60 (78.93 kg, 182.88 cm) jrd Visual Acuity: 13:14 Left Eye Visual acuity 20/30, ; Right Eye Visual acuity 20/40, ; Both Eyes Visual dsf acuity 20/25; Without Lenses; MDM: 13:08 Visual Acuity ordered. ar2 13:08 Tetracaine (PF) Drops 0.5 % 2 drps Ophthalmic once ordered. ar2 14:37 Financial registration complete. lg 15:22 [facility] Payment Agreement was scanned into [employer] and attached to record. lg Administered Medications: 13:48 Drug: Tetracaine (PF) 2 drps [tetracaine HCl (PF) 0.5 % eye drops (2 drps)] {Note: by dsf donny Nevarez} Route: Ophthalmic; Site: right eye; Signatures: Tong Renee, Reg Reg Donny James PA-C PADennis ar2 Andree Banks RN RN hs1 Celine Barker RN RN jc4 Magalis Man RN RN ttb Fuller, Desiree RN dsf The chart was reviewed and I authenticate all verbal orders and agree with the evaluation and treatment provided.Attachments: 15:22 [facility] [place] lg Chart Complete MTDD
== END 2016-04-10 14:38 | disposition home or self-care (01) ==
LOC: M ED 10:38
DX: G89.18 Other acute postprocedural pain (principal); H10.31 Unspecified acute conjunctivitis, right eye; G47.33 Obstructive sleep apnea (adult) (pediatric); I25.10 Atherosclerotic heart disease of native coronary artery without angina pectoris; E78.5 Hyperlipidemia, unspecified; Z86.73 Personal history of transient ischemic attack (TIA), and cerebral infarction without residual deficits; Z87.81 Personal history of (healed) traumatic fracture; Z79.899 Other long term (current) drug therapy; Z79.2 Long term (current) use of antibiotics; Z91.018 Allergy to other foods; Z91.030 Bee allergy status; Z88.6 Allergy status to analgesic agent; Z88.8 Allergy status to other drugs, medicaments and biological substances; F17.200 Nicotine dependence, unspecified, uncomplicated

== ENCOUNTER → 2016-04-17 | Outpatient (CLI) | payer OTHER | LOC: M LAB 07:39 | PROVIDERS: ATTEND Internal Medicine Cardiovascular Disease | DX: I95.0 Idiopathic hypotension (principal) ==

== ENCOUNTER 2016-04-26 20:44 | Emergency (ER) | payer OTHER ==
[2016-04-26] MEDS ORDERED: CIPROFLOXACIN 0.3% OPHTH SOLN 2.5ML As Ordered ONE (22:36)
[2016-04-26] MEDS ORDERED: CLINDAMYCIN 150 MG CAP As Ordered ONE (22:36)
[2016-04-26] MEDS ORDERED: AUGMENTIN 875 MG TAB As Ordered ONE (22:49)
--- NOTE | 2016-04-26 23:01 | EDDOCDS ---
Physician Documentation [facility] Name: Abhijit Sandoval Age: 50 yrs Sex: Male : 1965 Arrival Date: 04/26/2016 Time: 20:44 Bed TR8 Private MD: Andrew Hamm Disposition: 04/26/16 22:33 Discharged to Home/Self Care. Impression: Pseudomembranous conjunctivitis, right eye. - Condition is Stable. - Discharge Instructions: Conjunctivitis (Viral and Bacterial). - Prescriptions for Clindamycin HCl 300 mg Oral Capsule - take 1 capsule by ORAL route every 6 hours; 40 capsule. Augmentin 875- 125 mg Oral Tablet - take 1 tablet by ORAL route every 12 hours for 10 days; 20 tablet. - Medication Reconciliation, Local Pharmacy Hours form. - Follow up: Monty Merritt; When: Call to arrange an appointment; Reason: Recheck today's complaints, Continuance of care. - Problem is new. - Symptoms are unchanged. - Notes: continue with cipro 1-2 drops every 2hrs while awake for two days and than every 4hrs for five days. Historical: - Allergies: asparagus; Bees; Grape Jelly; Non-dairy creamer; steroids ( heart rate high); tylenolsyncopal episode that last for 24-48 hours; Statins; - Home Meds: 1. nitroglycerin 0.4 mg SL subl 1 tab as needed 2. Proventil HFA 90 mcg/actuation inhalation HFAA 2 puffs every 12 hours as needed 3. tramadol 250 mg Oral Tb24 every 6 hours as needed for pain - PMHx: CAD; CVAX2; fractured nose---2016; hyperlipidemia; MD; Sleep Apnea w/ CPAP; - PSHx: right knee surgery; Hernia repair; nasal septum surgery; - Social history: Smoking status: No barriers to communication noted, The patient speaks fluent Yi, Speaks appropriately for age. - Family history: Not pertinent. - : The pt / caregiver states he / she is not on anticoagulants. Home medication list is obtained from the patient. - Exposure Risk Screening:: None identified. Vital Signs: 04/26 20:46 BP 144 / 86; Pulse 98; Resp 18; Temp 98; Pulse Ox 99% ; Weight 78.93 kg / 174.01 lbs; jlm Height 6 ft. 0 in. (182.88 cm); Pain 7/10; 20:46 Body Mass Index 23.60 (78.93 kg, 182.88 cm) [facility] Visual Acuity: 21:59 Left Eye Visual acuity 20/25, ; Right Eye Visual acuity 20/25, ; Both Eyes Visual kmg1 acuity 20/25; Without Lenses; MDM: 21:41 Financial registration complete. kf3 21:55 [facility] Payment Agreement was scanned into [employer] and attached to record. kf3 22:32 Ciprofloxacin Drops 0.3 % 2 drps Ophthalmic once ordered. mo1 22:32 Clindamycin 300 mg PO once ordered. mo1 22:43 Amoxicillin-Clavulanate 875 mg 1 tabs PO once ordered. mo1 Administered Medications: 22:43 Drug: Ciprofloxacin 2 drps [ciprofloxacin 0.3 % eye drops (2 drps)] Route: Ophthalmic; kmg1 Site: right eye; 22:43 Not Given (Patient Refused): Clindamycin 300 mg PO once mo1 22:55 Drug: Amoxicillin-Clavulanate 1 tabs [amoxicillin 875 mg-potassium clavulanate 125 mg kmg1 tablet (1 tabs)] Route: PO; Signatures: Mariangel Lara RN RN kmg1 Celine Fishman RN RN jo3 Russ Montoya, Reg Reg kf3 Paul Power PA PA mo1 The chart was reviewed and I authenticate all verbal orders and agree with the evaluation and treatment provided.Corrections: (The following items were deleted from the chart) 22:17 22:15 Visual Acuity ordered. mo1 mo1 Attachments: 21:55 [facility] Payment Agreement kf3 MTDD
--- NOTE | 2016-04-26 23:01 | EDDOCDS ---
Nurse's Notes [facility] Name: Abhijit Sandoval Age: 50 yrs Sex: Male : 1965 Arrival Date: 04/26/2016 Time: 20:44 Bed TR8 Private MD: Andrew Hamm Diagnosis: Pseudomembranous conjunctivitis, right eye Presentation: 04/26 20:51 Presenting complaint: Patient states: Itchy and burning right eye with some green jo3 drainage noted. Adult Sepsis Screening: The patient does not have new or worsening altered mentation. Patient's respiratory rate is less than 22. Systolic blood pressure is greater than 100. Patient has a qSOFA score of 0- Negative Sepsis Screen. Suicide/Homicide risk assessment- the patient denies having any suicidal and/or homicidal ideations and does not present with any other emotional, behavioral or mental health complaints. Status: Patient is not a resident services coordinator or dependent. Transition of care: patient was not received from another setting of care. 20:51 Acuity: LOUIS Level 4 jo3 20:51 Method Of Arrival: Walkin/Carried/Asstd jo3 Triage Assessment: 20:53 General: Appears in no apparent distress, Behavior is appropriate for age, cooperative. jo3 HIV screening NA for this visit Offered previously. Neurological: Level of Consciousness is awake, alert, Oriented to person, place, time. EENT: right eye with reddened sclera and mild swelling . Respiratory: Airway is patent Respiratory effort is even, unlabored. Derm: Skin is pink, warm & dry. Historical: - Allergies: asparagus; Bees; Grape Jelly; Non-dairy creamer; steroids ( heart rate high); tylenolsyncopal episode that last for 24-48 hours; Statins; - Home Meds: 1. nitroglycerin 0.4 mg SL subl 1 tab as needed 2. Proventil HFA 90 mcg/actuation inhalation HFAA 2 puffs every 12 hours as needed 3. tramadol 250 mg Oral Tb24 every 6 hours as needed for pain - PMHx: CAD; CVAX2; fractured nose---2016; hyperlipidemia; [place]; Sleep Apnea w/ CPAP; - PSHx: right knee surgery; Hernia repair; nasal septum surgery; - Social history: Smoking status: No barriers to communication noted, The patient speaks fluent Chilean, Speaks appropriately for age. - Family history: Not pertinent. - : The pt / caregiver states he / she is not on anticoagulants. Home medication list is obtained from the patient. - Exposure Risk Screening:: None identified. Screenin:56 Screening information is obtained from the patient. Fall risk: No risks identified. kmg1 Assistance ADL's: requires no assistance with activities of daily living. Abuse/DV Screen: The patient / caregiver reports he/she is: not in a situation that causes fear, pain or injury. Nutritional screening: No deficits noted. Advance Directives: There is no active DNR order. home support is adequate. Assessment: 22:00 General: Appears in no apparent distress, comfortable, Behavior is appropriate for age, kmg1 cooperative. Pain: Location: right eye Pain currently is 7 out of 10 on a pain scale. EENT: Sclera/Cornea are reddened in outer aspect of conjuctiva of right eye, iris of right eye and inner aspect of conjuctiva of right eye. 22:58 Reassessment: Patient appears in no apparent distress at this time. No change in prior [facility] assessment. Right eye remains red. Drops in right eye per order. Vital Signs: 20:46 BP 144 / 86; Pulse 98; Resp 18; Temp 98; Pulse Ox 99% ; Weight 78.93 kg; Height 6 ft. 0 jlm in. (182.88 cm); Pain 7/10; 20:46 Body Mass Index 23.60 (78.93 kg, 182.88 cm) [facility] Vitals: 20:46 Log In Time: April 26, 2016 at 20:46. [facility] Visual Acuity: 21:59 Left Eye Visual acuity 20/25, ; Right Eye Visual acuity 20/25, ; Both Eyes Visual kmg1 acuity 20/25; Without Lenses; ED Course: 20:45 Patient visited by eTrrie Carrillo, Assembler Ping Pong Table. jlm 20:45 Patient moved to Waiting jlm 20:46 Andrew Hamm is Private Physician. jlm 20:47 Patient moved to Pre RCE jlm 20:52 Triage Initiated jo3 20:54 Patient visited by Celine Fishman RN. jo3 21:01 Patient moved to Triage 1 kmg1 21:20 Paul Power PA is PHCP. mo1 21:20 Tacos Moore DO is Attending Physician. mo1 21:39 Patient visited by Paul Power PA. mo1 21:55 [facility] Payment Agreement was scanned into [employer] and attached to record. kf3 21:57 Patient name changed from Abhijit\S\S\S\Sandoval\S\ to Abhijit\S\Reese\S\Sandoval. EDMS 22:33 Monty Merritt is Referral Physician. mo1 22:55 Patient moved to [facility] km 22:56 The patient / caregiver is instructed regarding the plan of care and ED course. kmg1 22:56 No IV's were initiated during this patient's visit. No procedures done that require km assistance. 23:00 Patient visited by Mariangel Lara RN. [facility] Administered Medications: 22:43 Drug: Ciprofloxacin 2 drps [ciprofloxacin 0.3 % eye drops (2 drps)] Route: Ophthalmic; [facility] Site: right eye; 22:43 Not Given (Patient Refused): Clindamycin 300 mg PO once mo1 22:55 Drug: Amoxicillin-Clavulanate 1 tabs [amoxicillin 875 mg-potassium clavulanate 125 mg kmg1 tablet (1 tabs)] Route: PO; Order Results: There are currently no results for this order. Outcome: 22:33 Discharge ordered by Provider. mo1 22:58 Discharge Assessment: Patient awake, alert and oriented x 3. No cognitive and/or g1 functional deficits noted. Patient verbalized understanding of disposition instructions. Patient awake and alert. patient administered narcotics - no. The following High Risk Discharge criteria are identified: None. Discharged to home ambulatory. Condition: stable. Discharge instructions given to patient, Instructed on discharge instructions, follow up and referral plans. medication usage, Demonstrated understanding of instructions, medications, Pt was receptive of discharge instructions/ teaching. Prescriptions given X 1. No special radiology studies were completed. Property sent home with patient. 23:00 Patient left the ED. [facility] Signatures: [facility] Mariangel Lara RN RN [facility] Celine Fishman RN RN jo3 Fiddler, Kris, Reg Reg kf3 Paul Power PA PA mo1 Terrie Carrillo, Assembler Ping Pong Table Unit jlm Corrections: (The following items were deleted from the chart) 22:58 22:56 General: Appears in no apparent distress, comfortable, Behavior is appropriate [facility] for age, cooperative, [facility] 22:56 Pain: Location: right eye Pain currently is 7 out of 10 on a pain scale. [place] [id number] 22:56 EENT: Sclera/Cornea are reddened in outer aspect of conjuctiva of right eye, iris kmg1 of right eye and inner aspect of conjuctiva of right eye [facility]
--- NOTE | 2016-04-29 00:02 | EDDOCDS ---
Physician Documentation [facility] Name: Abhijit Sandoval Age: 50 yrs Sex: Male : 1965 Arrival Date: 04/26/2016 Time: 20:44 Bed TR8 Private MD: Andrew Hamm Disposition: 04/26/16 22:33 Discharged to Home/Self Care. Impression: Pseudomembranous conjunctivitis, right eye. - Condition is Stable. - Discharge Instructions: Conjunctivitis (Viral and Bacterial). - Prescriptions for Clindamycin HCl 300 mg Oral Capsule - take 1 capsule by ORAL route every 6 hours; 40 capsule. Augmentin 875- 125 mg Oral Tablet - take 1 tablet by ORAL route every 12 hours for 10 days; 20 tablet. - Medication Reconciliation, Local Pharmacy Hours form. - Follow up: Monty Merritt; When: Call to arrange an appointment; Reason: Recheck today's complaints, Continuance of care. - Problem is new. - Symptoms are unchanged. - Notes: continue with cipro 1-2 drops every 2hrs while awake for two days and than every 4hrs for five days. Historical: - Allergies: asparagus; Bees; Grape Jelly; Non-dairy creamer; steroids ( heart rate high); tylenolsyncopal episode that last for 24-48 hours; Statins; - Home Meds: 1. nitroglycerin 0.4 mg SL subl 1 tab as needed 2. Proventil HFA 90 mcg/actuation inhalation HFAA 2 puffs every 12 hours as needed 3. tramadol 250 mg Oral Tb24 every 6 hours as needed for pain - PMHx: CAD; CVAX2; fractured nose---2016; hyperlipidemia; [place]; Sleep Apnea w/ CPAP; - PSHx: right knee surgery; Hernia repair; nasal septum surgery; - Social history: Smoking status: No barriers to communication noted, The patient speaks fluent Korean, Speaks appropriately for age. - Family history: Not pertinent. - : The pt / caregiver states he / she is not on anticoagulants. Home medication list is obtained from the patient. - Exposure Risk Screening:: None identified. Vital Signs: 04/26 20:46 BP 144 / 86; Pulse 98; Resp 18; Temp 98; Pulse Ox 99% ; Weight 78.93 kg / 174.01 lbs; jlm Height 6 ft. 0 in. (182.88 cm); Pain 7/10; 20:46 Body Mass Index 23.60 (78.93 kg, 182.88 cm) [facility] Visual Acuity: 21:59 Left Eye Visual acuity 20/25, ; Right Eye Visual acuity 20/25, ; Both Eyes Visual kmg1 acuity 20/25; Without Lenses; MDM: 21:41 Financial registration complete. kf3 21:55 [facility] Payment Agreement was scanned into [employer] and attached to record. kf3 22:32 Ciprofloxacin Drops 0.3 % 2 drps Ophthalmic once ordered. mo1 22:32 Clindamycin 300 mg PO once ordered. mo1 22:43 Amoxicillin-Clavulanate 875 mg 1 tabs PO once ordered. mo04/27 08:30 T-Sheet-- Draft Copy was scanned into [employer] and attached to record. seh Administered Medications: 04/26 22:43 Drug: Ciprofloxacin 2 drps [ciprofloxacin 0.3 % eye drops (2 drps)] Route: Ophthalmic; kmg1 Site: right eye; 22:43 Not Given (Patient Refused): Clindamycin 300 mg PO once mo1 22:55 Drug: Amoxicillin-Clavulanate 1 tabs [amoxicillin 875 mg-potassium clavulanate 125 mg kmg1 tablet (1 tabs)] Route: PO; Signatures: Mariangel Lara RN RN km Celine Fishman RN RN jo3 Russ Montoya, Reg Reg kf3 Paul Power PA PA mo1 Nita Sadler [facility] The chart was reviewed and I authenticate all verbal orders and agree with the evaluation and treatment provided.Corrections: (The following items were deleted from the chart) 22:17 22:15 Visual Acuity ordered. mo1 mo1 Attachments: 21:55 [facility] Payment Agreement 3 04/27 08:30 T-Sheet-- Draft Copy [facility] Chart Complete MTDD
--- NOTE | 2016-04-29 00:02 | EDDOCDS ---
Nurse's Notes [facility] Name: Abhijit Sandoval Age: 50 yrs Sex: Male : 1965 Arrival Date: 04/26/2016 Time: 20:44 Bed TR8 Private MD: Andrew Hamm Diagnosis: Pseudomembranous conjunctivitis, right eye Presentation: 04/26 20:51 Presenting complaint: Patient states: Itchy and burning right eye with some green jo3 drainage noted. Adult Sepsis Screening: The patient does not have new or worsening altered mentation. Patient's respiratory rate is less than 22. Systolic blood pressure is greater than 100. Patient has a qSOFA score of 0- Negative Sepsis Screen. Suicide/Homicide risk assessment- the patient denies having any suicidal and/or homicidal ideations and does not present with any other emotional, behavioral or mental health complaints. Status: Patient is not a health services director or dependent. Transition of care: patient was not received from another setting of care. 20:51 Acuity: LOUIS Level 4 jo3 20:51 Method Of Arrival: Walkin/Carried/Asstd jo3 Triage Assessment: 20:53 General: Appears in no apparent distress, Behavior is appropriate for age, cooperative. jo3 HIV screening NA for this visit Offered previously. Neurological: Level of Consciousness is awake, alert, Oriented to person, place, time. EENT: right eye with reddened sclera and mild swelling . Respiratory: Airway is patent Respiratory effort is even, unlabored. Derm: Skin is pink, warm & dry. Historical: - Allergies: asparagus; Bees; Grape Jelly; Non-dairy creamer; steroids ( heart rate high); tylenolsyncopal episode that last for 24-48 hours; Statins; - Home Meds: 1. nitroglycerin 0.4 mg SL subl 1 tab as needed 2. Proventil HFA 90 mcg/actuation inhalation HFAA 2 puffs every 12 hours as needed 3. tramadol 250 mg Oral Tb24 every 6 hours as needed for pain - PMHx: CAD; CVAX2; fractured nose---2016; hyperlipidemia; [place]; Sleep Apnea w/ CPAP; - PSHx: right knee surgery; Hernia repair; nasal septum surgery; - Social history: Smoking status: No barriers to communication noted, The patient speaks fluent Qatari, Speaks appropriately for age. - Family history: Not pertinent. - : The pt / caregiver states he / she is not on anticoagulants. Home medication list is obtained from the patient. - Exposure Risk Screening:: None identified. Screenin:56 Screening information is obtained from the patient. Fall risk: No risks identified. kmg1 Assistance ADL's: requires no assistance with activities of daily living. Abuse/DV Screen: The patient / caregiver reports he/she is: not in a situation that causes fear, pain or injury. Nutritional screening: No deficits noted. Advance Directives: There is no active DNR order. home support is adequate. Assessment: 22:00 General: Appears in no apparent distress, comfortable, Behavior is appropriate for age, kmg1 cooperative. Pain: Location: right eye Pain currently is 7 out of 10 on a pain scale. EENT: Sclera/Cornea are reddened in outer aspect of conjuctiva of right eye, iris of right eye and inner aspect of conjuctiva of right eye. 22:58 Reassessment: Patient appears in no apparent distress at this time. No change in prior [facility] assessment. Right eye remains red. Drops in right eye per order. Vital Signs: 20:46 BP 144 / 86; Pulse 98; Resp 18; Temp 98; Pulse Ox 99% ; Weight 78.93 kg; Height 6 ft. 0 jlm in. (182.88 cm); Pain 7/10; 20:46 Body Mass Index 23.60 (78.93 kg, 182.88 cm) [facility] Vitals: 20:46 Log In Time: April 26, 2016 at 20:46. [facility] Visual Acuity: 21:59 Left Eye Visual acuity 20/25, ; Right Eye Visual acuity 20/25, ; Both Eyes Visual kmg1 acuity 20/25; Without Lenses; ED Course: 20:45 Patient visited by Terrie Carrillo, Drycleaner. jlm 20:45 Patient moved to Waiting jlm 20:46 Andrew Hamm is Private Physician. jlm 20:47 Patient moved to Pre RCE jlm 20:52 Triage Initiated jo3 20:54 Patient visited by Celine Fishman RN. jo3 21:01 Patient moved to Triage 1 kmg1 21:20 Paul Power PA is PHCP. mo1 21:20 Tacos Moore DO is Attending Physician. mo1 21:39 Patient visited by Paul Power PA. mo1 21:55 [facility] Payment Agreement was scanned into [employer] and attached to record. kf3 21:57 Patient name changed from Abhijit\S\S\S\Sandoval\S\ to Abhijit\S\Reese\S\Sandoval. EDMS 22:33 Monty Merritt is Referral Physician. mo1 22:55 Patient moved to [facility] km 22:56 The patient / caregiver is instructed regarding the plan of care and ED course. kmg1 22:56 No IV's were initiated during this patient's visit. No procedures done that require [facility] assistance. 23:00 Patient visited by Mariangel Lara RN. [facility] 04/27 08:30 T-Sheet-- Draft Copy was scanned into [employer] and attached to record. [facility] Administered Medications: 04/26 22:43 Drug: Ciprofloxacin 2 drps [ciprofloxacin 0.3 % eye drops (2 drps)] Route: Ophthalmic; [facility] Site: right eye; 22:43 Not Given (Patient Refused): Clindamycin 300 mg PO once mo1 22:55 Drug: Amoxicillin-Clavulanate 1 tabs [amoxicillin 875 mg-potassium clavulanate 125 mg kmg1 tablet (1 tabs)] Route: PO; Order Results: There are currently no results for this order. Outcome: 22:33 Discharge ordered by Provider. mo1 22:58 Discharge Assessment: Patient awake, alert and oriented x 3. No cognitive and/or [facility] functional deficits noted. Patient verbalized understanding of disposition instructions. Patient awake and alert. patient administered narcotics - no. The following High Risk Discharge criteria are identified: None. Discharged to home ambulatory. Condition: stable. Discharge instructions given to patient, Instructed on discharge instructions, follow up and referral plans. medication usage, Demonstrated understanding of instructions, medications, Pt was receptive of discharge instructions/ teaching. Prescriptions given X 1. No special radiology studies were completed. Property sent home with patient. 23:00 Patient left the ED. [facility] Signatures: [facility] Mariangel Lara RN RN [facility] Celine Fishman RN RN jo3 Russ Montoya, Reg Reg kf3 Paul Power PA PA mo1 Terrie Carrillo, Drycleaner Unit Nita Yañez Corrections: (The following items were deleted from the chart) :58 22:56 General: Appears in no apparent distress, comfortable, Behavior is appropriate [facility] for age, cooperative, [facility] :58 22:56 Pain: Location: right eye Pain currently is 7 out of 10 on a pain scale. [place] [id number] 22:58 22:56 EENT: Sclera/Cornea are reddened in outer aspect of conjuctiva of right eye, iris kmg1 of right eye and inner aspect of conjuctiva of right eye [facility] Chart [facility]
--- NOTE | 2016-04-29 00:02 | EDDOCDS ---
Physician Documentation [facility] Name: Abhijit Sandoval Age: 50 yrs Sex: Male : 1965 Arrival Date: 04/26/2016 Time: 20:44 Bed TR8 Private MD: Andrew Hamm Disposition: 04/26/16 22:33 Discharged to Home/Self Care. Impression: Pseudomembranous conjunctivitis, right eye. - Condition is Stable. - Discharge Instructions: Conjunctivitis (Viral and Bacterial). - Prescriptions for Clindamycin HCl 300 mg Oral Capsule - take 1 capsule by ORAL route every 6 hours; 40 capsule. Augmentin 875- 125 mg Oral Tablet - take 1 tablet by ORAL route every 12 hours for 10 days; 20 tablet. - Medication Reconciliation, Local Pharmacy Hours form. - Follow up: Monty Merritt; When: Call to arrange an appointment; Reason: Recheck today's complaints, Continuance of care. - Problem is new. - Symptoms are unchanged. - Notes: continue with cipro 1-2 drops every 2hrs while awake for two days and than every 4hrs for five days. Historical: - Allergies: asparagus; Bees; Grape Jelly; Non-dairy creamer; steroids ( heart rate high); tylenolsyncopal episode that last for 24-48 hours; Statins; - Home Meds: 1. nitroglycerin 0.4 mg SL subl 1 tab as needed 2. Proventil HFA 90 mcg/actuation inhalation HFAA 2 puffs every 12 hours as needed 3. tramadol 250 mg Oral Tb24 every 6 hours as needed for pain - PMHx: CAD; CVAX2; fractured nose---2016; hyperlipidemia; ME; Sleep Apnea w/ CPAP; - PSHx: right knee surgery; Hernia repair; nasal septum surgery; - Social history: Smoking status: No barriers to communication noted, The patient speaks fluent Greek, Speaks appropriately for age. - Family history: Not pertinent. - : The pt / caregiver states he / she is not on anticoagulants. Home medication list is obtained from the patient. - Exposure Risk Screening:: None identified. Vital Signs: 04/26 20:46 BP 144 / 86; Pulse 98; Resp 18; Temp 98; Pulse Ox 99% ; Weight 78.93 kg / 174.01 lbs; jlm Height 6 ft. 0 in. (182.88 cm); Pain 7/10; 20:46 Body Mass Index 23.60 (78.93 kg, 182.88 cm) [facility] Visual Acuity: 21:59 Left Eye Visual acuity 20/25, ; Right Eye Visual acuity 20/25, ; Both Eyes Visual kmg1 acuity 20/25; Without Lenses; MDM: 21:41 Financial registration complete. kf3 21:55 [facility] Payment Agreement was scanned into [employer] and attached to record. kf3 22:32 Ciprofloxacin Drops 0.3 % 2 drps Ophthalmic once ordered. mo1 22:32 Clindamycin 300 mg PO once ordered. mo1 22:43 Amoxicillin-Clavulanate 875 mg 1 tabs PO once ordered. mo04/27 08:30 T-Sheet-- Draft Copy was scanned into [employer] and attached to record. seh Administered Medications: 04/26 22:43 Drug: Ciprofloxacin 2 drps [ciprofloxacin 0.3 % eye drops (2 drps)] Route: Ophthalmic; kmg1 Site: right eye; 22:43 Not Given (Patient Refused): Clindamycin 300 mg PO once mo1 22:55 Drug: Amoxicillin-Clavulanate 1 tabs [amoxicillin 875 mg-potassium clavulanate 125 mg kmg1 tablet (1 tabs)] Route: PO; Signatures: Mariangel Lara RN RN km Celine Fishman RN RN jo3 Russ Montoya, Reg Reg kf3 Paul Power PA PA mo1 Nita Sadler [facility] The chart was reviewed and I authenticate all verbal orders and agree with the evaluation and treatment provided.Corrections: (The following items were deleted from the chart) 22:17 22:15 Visual Acuity ordered. mo1 mo1 Attachments: 21:55 [facility] Payment Agreement 3 04/27 08:30 T-Sheet-- Draft Copy [facility] Chart Complete MTDD
== END 2016-04-26 23:00 | disposition home or self-care (01) ==
LOC: M ED 20:44
DX: H10.89 Other conjunctivitis (principal); I25.10 Atherosclerotic heart disease of native coronary artery without angina pectoris; E78.5 Hyperlipidemia, unspecified; G47.30 Sleep apnea, unspecified; Z86.73 Personal history of transient ischemic attack (TIA), and cerebral infarction without residual deficits; I25.2 Old myocardial infarction; Z91.030 Bee allergy status; Z91.018 Allergy to other foods; Z88.6 Allergy status to analgesic agent; Z88.8 Allergy status to other drugs, medicaments and biological substances

== ENCOUNTER 2016-12-14 15:08 | Emergency (ER) | payer OTHER ==
[~2016-12-14] VITALS: Ht 185.4 cm; Wt 85.0 kg
[~2016-12-14 15:08] MED LIST changes: +ACET250T2 PO; -ACET25TA PO; +ASPI-161 PO; -ASPI1TAB24 PO; -AUGM875T27 PO; +AUGM875T28 PO; -NAPR500T2 PO; +NAPR500T3 PO
[2016-12-14] MEDS ORDERED: diphenhydrAMINE 50 MG CAP PO ONE (15:45)
[2016-12-14] MEDS ORDERED: FAMOTIDINE 20 MG TAB PO ONE (15:45)
[2016-12-14] MEDS ORDERED: EPIN0.3I6 IM (17:16)
[2016-12-14 17:21] VITALS: BP 131/92
[2016-12-14] MEDS ORDERED: EPIN0.153 IM ×2 (20:12→20:17)
== END 2016-12-14 17:28 | disposition home or self-care (01) ==
LOC: M ED 15:08
DX: T63.444A Toxic effect of venom of bees, undetermined, initial encounter (principal); I51.9 Heart disease, unspecified; J45.909 Unspecified asthma, uncomplicated; I25.2 Old myocardial infarction; F17.210 Nicotine dependence, cigarettes, uncomplicated; Z79.82 Long term (current) use of aspirin; Z88.8 Allergy status to other drugs, medicaments and biological substances; Z91.030 Bee allergy status; Z91.013 Allergy to seafood; Z86.73 Personal history of transient ischemic attack (TIA), and cerebral infarction without residual deficits

== ENCOUNTER 2017-04-30 10:04 | Emergency (ER) | payer OTHER ==
[2017-04-30] MEDS: NS 1,000 ML IV (11:25)
[2017-04-30] MEDS: MORPHINE 4 MG/ML 1ML VIAL (J2270) IV ×2 (11:26→13:27)
[2017-04-30 11:29] LABS: BASO # 0.1 10^3/uL (0.0-0.2); BASO % 0.6 % (0.0-1.0); EOS # 0.1 10^3/uL (0.0-0.50); EOS % 1.3 % (0.0-3.0); HEMATOCRIT 41.6 % (42.0-52.0); HEMOGLOBIN 13.6 g/dl (14.0-18.0); IMMATURE GRANULOCYTE % 0.4 % (0-3.0); LYMPH # 2.3 10^3/uL (1.5-4.5); LYMPH % 20.4 % (24.0-44.0); MEAN CORPUSCULAR HEMOGLOBIN 24.9 pg (27.0-33.0); MEAN CORPUSCULAR HGB CONC 32.7 g/dl (32.0-36.5); MEAN CORPUSCULAR VOLUME 76.1 fl (80.0-96.0); MONO # 0.6 10^3/uL (0.0-0.8); MONO % 5.6 % (0.0-5.0); NEUTROPHILS % 71.7 % (36.0-66.0); PLATELET COUNT, AUTOMATED 233 10^3/uL (150-450); RED BLOOD COUNT 5.47 10^6/uL (4.30-6.10); RED CELL DISTRIBUTION WIDTH 15.4 % (11.5-14.5); WHITE BLOOD COUNT 11.2 10^3/uL (4.0-10.0)
[2017-04-30 11:39] LABS: KETONE, URINE AUTO RFX NEGATIVE (NEGATIVE); LEUKOCYTE ESTERASE UR AUTO RFX NEGATIVE (NEGATIVE); NITRITE, URINE AUTO RFX NEGATIVE (NEGATIVE); RBC, URINE AUTO RFX 0 /HPF (0-3); SPECIFIC GRAVITY UR AUTO RFX 1.006 (1.002-1.035); SQUAM EPITHELIAL CELL UR AURFX 0 /HPF (0-6); WBC, URINE AUTO RFX 0 /HPF (0-3)
[2017-04-30 11:47] LABS: ALBUMIN 3.6 GM/DL (3.2-5.2); ALBUMIN/GLOBULIN RATIO 0.95 (1.00-1.93); ALKALINE PHOSPHATASE 146 U/L (45-117); ALT/SGPT 17 U/L (12-78); ANION GAP 7 MEQ/L (8-16); AST/SGOT 14 U/L (7-37); BILIRUBIN,DIRECT 0.1 MG/DL (0.0-0.2); BILIRUBIN,TOTAL 0.6 MG/DL (0.2-1.0); BLOOD UREA NITROGEN 11 MG/DL (7-18); CALCIUM LEVEL 8.4 MG/DL (8.5-10.1); CARBON DIOXIDE LEVEL 25 MEQ/L (21-32); CHLORIDE LEVEL 106 MEQ/L (98-107); CREATININE FOR GFR 0.74 MG/DL (0.70-1.30); GLOMERULAR FILTRATION RATE > 60.0 (>56); GLUCOSE, FASTING 91 MG/DL (70-100); POTASSIUM SERUM 4.1 MEQ/L (3.5-5.1); SODIUM LEVEL 138 MEQ/L (136-145); TOTAL PROTEIN 7.4 GM/DL (6.4-8.2)
[2017-04-30 11:48] LABS: LACTIC ACID SEPSIS PROTOCOL 0.7 MMOL/L (0.4-2.0)
[2017-04-30] MEDS ORDERED: ISOVUE-370 76% 100ML VIAL (Q9967) As Ordered (13:33)
== END 2017-04-30 14:33 | disposition home or self-care (01) ==
LOC: M ED 10:04
DX: Z76.0 Encounter for issue of repeat prescription (principal); R10.31 Right lower quadrant pain; F17.210 Nicotine dependence, cigarettes, uncomplicated; I25.2 Old myocardial infarction; G47.30 Sleep apnea, unspecified; Z88.8 Allergy status to other drugs, medicaments and biological substances; Z91.018 Allergy to other foods; Z91.030 Bee allergy status; Z91.013 Allergy to seafood; Z98.890 Other specified postprocedural states; Z86.73 Personal history of transient ischemic attack (TIA), and cerebral infarction without residual deficits; Z87.19 Personal history of other diseases of the digestive system; Z91.5 Personal history of self-harm
CPT/HCPCS: J2270

== ENCOUNTER 2017-05-06 12:18 | Emergency (ER) | payer OTHER ==
[2017-05-06] MEDS: MORPHINE 4 MG/ML 1ML VIAL (J2270) IV ×2 (15:43→19:37)
[2017-05-06] MEDS: GASTROGRAFIN SOLUTION 30ML PO ×2 (15:51→16:20)
[2017-05-06 15:55] LABS: BASO # 0.1 10^3/uL (0.0-0.2); BASO % 0.9 % (0.0-1.0); EOS # 0.1 10^3/uL (0.0-0.50); EOS % 0.9 % (0.0-3.0); HEMATOCRIT 45.4 % (42.0-52.0); HEMOGLOBIN 14.9 g/dl (14.0-18.0); IMMATURE GRANULOCYTE % 0.4 % (0-3.0); LYMPH # 2.8 10^3/uL (1.5-4.5); LYMPH % 22.2 % (24.0-44.0); MEAN CORPUSCULAR HEMOGLOBIN 25.1 pg (27.0-33.0); MEAN CORPUSCULAR HGB CONC 32.8 g/dl (32.0-36.5); MEAN CORPUSCULAR VOLUME 76.4 fl (80.0-96.0); MONO # 0.6 10^3/uL (0.0-0.8); MONO % 4.4 % (0.0-5.0); NEUTROPHILS # 9.1 10^3/uL (1.8-7.7); NEUTROPHILS % 71.2 % (36.0-66.0); PLATELET COUNT, AUTOMATED 324 10^3/uL (150-450); RED BLOOD COUNT 5.94 10^6/uL (4.30-6.10); RED CELL DISTRIBUTION WIDTH 15.5 % (11.5-14.5); WHITE BLOOD COUNT 12.8 10^3/uL (4.0-10.0)
[2017-05-06 16:23] LABS: ALBUMIN 4.1 GM/DL (3.2-5.2); ALBUMIN/GLOBULIN RATIO 0.91 (1.00-1.93); ALKALINE PHOSPHATASE 154 U/L (45-117); ALT/SGPT 20 U/L (12-78); ANION GAP 7 MEQ/L (8-16); AST/SGOT 13 U/L (7-37); BILIRUBIN,TOTAL 0.4 MG/DL (0.2-1.0); BLOOD UREA NITROGEN 10 MG/DL (7-18); CARBON DIOXIDE LEVEL 25 MEQ/L (21-32); CHLORIDE LEVEL 105 MEQ/L (98-107); CREATININE FOR GFR 0.94 MG/DL (0.70-1.30); GLOMERULAR FILTRATION RATE > 60.0 (>56); GLUCOSE, FASTING 93 MG/DL (70-100); LIPASE 136 U/L (73-393); POTASSIUM SERUM 4.6 MEQ/L (3.5-5.1); SODIUM LEVEL 137 MEQ/L (136-145); TOTAL PROTEIN 8.6 GM/DL (6.4-8.2)
[2017-05-06] MEDS ORDERED: ISOVUE-370 76% 100ML VIAL (Q9967) As Ordered (16:35)
[2017-05-06 18:41] LABS: KETONE, URINE AUTO RFX NEGATIVE (NEGATIVE); LEUKOCYTE ESTERASE UR AUTO RFX NEGATIVE (NEGATIVE); NITRITE, URINE AUTO RFX NEGATIVE (NEGATIVE); RBC, URINE AUTO RFX 0 /HPF (0-3); SQUAM EPITHELIAL CELL UR AURFX 0 /HPF (0-6); WBC, URINE AUTO RFX 0 /HPF (0-3)
[2017-05-06 19:24] LABS: SPECIFIC GRAVITY UR AUTO RFX >1.060 (1.002-1.035)
== END 2017-05-06 20:01 | disposition home or self-care (01) ==
LOC: M ED 12:18
DX: R10.30 Lower abdominal pain, unspecified (principal); I25.2 Old myocardial infarction; Z86.73 Personal history of transient ischemic attack (TIA), and cerebral infarction without residual deficits; Z88.8 Allergy status to other drugs, medicaments and biological substances; Z91.018 Allergy to other foods; Z91.030 Bee allergy status; Z91.013 Allergy to seafood; Z79.82 Long term (current) use of aspirin
CPT/HCPCS: J2270

== ENCOUNTER → 2017-05-12 | Outpatient (CLI) | payer OTHER ==
[2017-05-12 18:47] LABS: C REACTIVE PROTEIN QUANTITATIV 1.83 MG/DL (0.00-0.30)
[2017-05-12 19:04] LABS: BASO # 0.1 10^3/uL (0.0-0.2); BASO % 0.8 % (0.0-1.0); EOS # 0.1 10^3/uL (0.0-0.50); HEMATOCRIT 43.8 % (42.0-52.0); HEMOGLOBIN 14.2 g/dl (14.0-18.0); IMMATURE GRANULOCYTE % 0.3 % (0-3.0); LYMPH # 3.1 10^3/uL (1.5-4.5); MEAN CORPUSCULAR HEMOGLOBIN 24.6 pg (27.0-33.0); MEAN CORPUSCULAR HGB CONC 32.4 g/dl (32.0-36.5); MEAN CORPUSCULAR VOLUME 75.8 fl (80.0-96.0); MONO # 0.6 10^3/uL (0.0-0.8); MONO % 5.1 % (0.0-5.0); NEUTROPHILS # 7.9 10^3/uL (1.8-7.7); NEUTROPHILS % 66.8 % (36.0-66.0); PLATELET COUNT, AUTOMATED 290 10^3/uL (150-450); RED BLOOD COUNT 5.78 10^6/uL (4.30-6.10); RED CELL DISTRIBUTION WIDTH 15.8 % (11.5-14.5); WHITE BLOOD COUNT 11.8 10^3/uL (4.0-10.0)
== END ==
LOC: M LAB 17:05
DX: R10.31 Right lower quadrant pain (principal)
CPT/HCPCS: 86140

== ENCOUNTER → 2017-05-19 | Outpatient (CLI) | payer OTHER | LOC: M LRY 14:45 | DX: D72.829 Elevated white blood cell count, unspecified (principal) | CPT/HCPCS: 71046 ==

== ENCOUNTER → 2017-05-19 | Outpatient (REF) | payer OTHER ==
[2017-05-19 21:23] LABS: REASON FOR REVIEW WBC/LEUKEMIA/BLAST; SLIDE REVIEW Report; SOURCE PERIPHERAL SMEAR
[2017-05-19 21:46] LABS: PSA SCREENING 0.37 NG/ML (< 4.0)
== END ==
LOC: M SFHCLERA 14:26
DX: D72.829 Elevated white blood cell count, unspecified (principal); Z12.11 Encounter for screening for malignant neoplasm of colon; Z12.5 Encounter for screening for malignant neoplasm of prostate
CPT/HCPCS: 84153

== ENCOUNTER → 2017-05-20 | Outpatient (REF) | payer OTHER | LOC: M SFHCLERA 17:28 | DX: D72.829 Elevated white blood cell count, unspecified (principal); Z12.11 Encounter for screening for malignant neoplasm of colon | CPT/HCPCS: 82270 ==

== ENCOUNTER 2017-05-23 15:44 | Emergency (ER) | payer OTHER ==
[2017-05-23 16:10] LABS: BASO # 0.1 10^3/uL (0.0-0.2); BASO % 0.9 % (0.0-1.0); EOS # 0.1 10^3/uL (0.0-0.50); EOS % 1.1 % (0.0-3.0); HEMATOCRIT 40.9 % (42.0-52.0); HEMOGLOBIN 13.8 g/dl (14.0-18.0); IMMATURE GRANULOCYTE % 0.3 % (0-3.0); LYMPH # 2.8 10^3/uL (1.5-4.5); LYMPH % 24.6 % (24.0-44.0); MEAN CORPUSCULAR HEMOGLOBIN 25.3 pg (27.0-33.0); MEAN CORPUSCULAR HGB CONC 33.7 g/dl (32.0-36.5); MEAN CORPUSCULAR VOLUME 74.9 fl (80.0-96.0); MONO # 0.7 10^3/uL (0.0-0.8); MONO % 6.2 % (0.0-5.0); NEUTROPHILS # 7.6 10^3/uL (1.8-7.7); NEUTROPHILS % 66.9 % (36.0-66.0); PLATELET COUNT, AUTOMATED 266 10^3/uL (150-450); RED BLOOD COUNT 5.46 10^6/uL (4.30-6.10); RED CELL DISTRIBUTION WIDTH 15.9 % (11.5-14.5); WHITE BLOOD COUNT 11.4 10^3/uL (4.0-10.0)
[2017-05-23 16:26] LABS: INR 0.89; PROTHROMBIN TIME 12.1 SECONDS (12.4-14.5)
[2017-05-23 16:27] LABS: PARTIAL THROMBOPLASTIN TIME 31.3 SECONDS (26.8-37.9)
[2017-05-23 16:33] LABS: ALBUMIN 3.6 GM/DL (3.2-5.2); ALBUMIN/GLOBULIN RATIO 0.88 (1.00-1.93); ALKALINE PHOSPHATASE 161 U/L (45-117); ALT/SGPT 33 U/L (12-78); ANION GAP 9 MEQ/L (8-16); AST/SGOT 21 U/L (7-37); BILIRUBIN,DIRECT < 0.1 MG/DL (0.0-0.2); BILIRUBIN,TOTAL 0.4 MG/DL (0.2-1.0); CALCIUM LEVEL 8.8 MG/DL (8.5-10.1); CARBON DIOXIDE LEVEL 25 MEQ/L (21-32); CHLORIDE LEVEL 105 MEQ/L (98-107); CPK CREATINE PHOSPHOKINASE 92 U/L (39-308); CREATININE FOR GFR 0.84 MG/DL (0.70-1.30); GLOMERULAR FILTRATION RATE > 60.0 (>56); GLUCOSE, FASTING 87 MG/DL (70-100); LIPASE 144 U/L (73-393); POTASSIUM SERUM 4.2 MEQ/L (3.5-5.1); SODIUM LEVEL 139 MEQ/L (136-145); TOTAL PROTEIN 7.7 GM/DL (6.4-8.2); TROPONIN I < 0.02 NG/ML (< 0.10)
[2017-05-23 16:40] LABS: BLOOD UREA NITROGEN 10 MG/DL (7-18); CK-MB VALUE MASS < 1.0 NG/ML (<3.6); FREE T4 1.19 NG/DL (0.76-1.46); MB/CK RELATIVE INDEX 1.08 (< OR =4)
[2017-05-23 21:27] LABS: CK-MB VALUE MASS < 1.0 NG/ML (<3.6); CPK CREATINE PHOSPHOKINASE 80 U/L (39-308); MB/CK RELATIVE INDEX 1.25 (< OR =4); TROPONIN I < 0.02 NG/ML (< 0.10)
== END 2017-05-23 21:49 | disposition home or self-care (01) ==
LOC: M ED 15:44
DX: R07.89 Other chest pain (principal); R06.02 Shortness of breath; I10 Essential (primary) hypertension; G89.29 Other chronic pain; F17.200 Nicotine dependence, unspecified, uncomplicated; Z79.82 Long term (current) use of aspirin; Z79.1 Long term (current) use of non-steroidal anti-inflammatories (NSAID); Z88.8 Allergy status to other drugs, medicaments and biological substances; Z91.018 Allergy to other foods; Z91.013 Allergy to seafood
CPT/HCPCS: 71045

== ENCOUNTER → 2017-06-02 | Outpatient (CLI) | payer OTHER | LOC: M RAD 08:32 | DX: I71.4 Abdominal aortic aneurysm, without rupture (principal) | CPT/HCPCS: 76775 ==

== ENCOUNTER → 2017-06-30 | Outpatient (REF) | payer OTHER ==
[2017-06-30 18:02] LABS: ALBUMIN 3.8 GM/DL (3.2-5.2); ALBUMIN/GLOBULIN RATIO 0.88 (1.00-1.93); ALKALINE PHOSPHATASE 152 U/L (45-117); ALT/SGPT 18 U/L (12-78); ANION GAP 10 MEQ/L (8-16); AST/SGOT 16 U/L (7-37); BILIRUBIN,TOTAL 0.6 MG/DL (0.2-1.0); BLOOD UREA NITROGEN 10 MG/DL (7-18); CALCIUM LEVEL 8.7 MG/DL (8.5-10.1); CARBON DIOXIDE LEVEL 24 MEQ/L (21-32); CHLORIDE LEVEL 106 MEQ/L (98-107); CREATININE FOR GFR 0.78 MG/DL (0.70-1.30); GLOMERULAR FILTRATION RATE > 60.0 (>56); GLUCOSE, FASTING 81 MG/DL (70-100); POTASSIUM SERUM 4.2 MEQ/L (3.5-5.1); SODIUM LEVEL 140 MEQ/L (136-145); TOTAL PROTEIN 8.1 GM/DL (6.4-8.2)
[2017-06-30 18:12] LABS: ESTIMATED AVERAGE GLUCOSE 128 MG/DL (60-110); HEMOGLOBIN A1c 6.1 %
[2017-07-03 00:07] LABS: ANA (HEP2) Negative (.); CARDIOLIPIN IGA ANTIBODY <9 APL U/mL (0-11); CARDIOLIPIN IGG ANTIBODY <9 GPL U/mL (0-14); CARDIOLIPIN IGM ANTIBODY 13 MPL U/mL (0-12)
[2017-07-03 00:07] LABS: CYCLIC CITRULLINATED PEPTIDE > 250 units (0-19)
== END ==
LOC: M SFHCLERA 11:54
DX: D72.829 Elevated white blood cell count, unspecified (principal); Z13.1 Encounter for screening for diabetes mellitus

== ENCOUNTER 2017-07-02 12:08 | Day surgery (SDC) | payer OTHER ==
[2017-07-02] MEDS: MIDAZOLAM INJ 2 MG/2 ML VIAL (J2250) IV (12:30)
[2017-07-02] MEDS ORDERED: MIDAZOLAM INJ 2 MG/2 ML VIAL (J2250) As Ordered ×3 (12:43→12:44)
[2017-07-02] MEDS ORDERED: LIDOCAINE VISCOUS 2% SOLN 15ML UDC As Ordered (12:43)
== END 2017-07-02 14:20 | disposition home or self-care (01) ==
LOC: M OPP 12:08
DX: G45.9 Transient cerebral ischemic attack, unspecified (principal)
CPT/HCPCS: J2250

== ENCOUNTER 2017-07-22 17:54 | Emergency (ER) | payer OTHER | END 2017-07-22 20:47 | disposition home or self-care (01) | LOC: M ED 17:54 | DX: M79.662 Pain in left lower leg (principal); I10 Essential (primary) hypertension; I25.2 Old myocardial infarction; E78.5 Hyperlipidemia, unspecified; K21.9 Gastro-esophageal reflux disease without esophagitis; Z86.73 Personal history of transient ischemic attack (TIA), and cerebral infarction without residual deficits; M54.9 Dorsalgia, unspecified; F17.210 Nicotine dependence, cigarettes, uncomplicated; Z88.6 Allergy status to analgesic agent; Z88.5 Allergy status to narcotic agent; Z91.018 Allergy to other foods; Z91.013 Allergy to seafood; Z91.030 Bee allergy status; Z79.899 Other long term (current) drug therapy; Z79.82 Long term (current) use of aspirin | CPT/HCPCS: 93971 ==

== ENCOUNTER → 2017-08-11 | Outpatient (REF) | payer OTHER ==
[2017-08-13 08:44] LABS: HEPATITIS B SURFACE ANTIGEN NEGATIVE (NEGATIVE)
[2017-08-13 09:00] LABS: HEPATITIS C VIRUS ABY INDEX < 0.0 INDEX (<0.8)
[2017-08-13 09:01] LABS: HEPATITIS B CORE ANTIBODY IGM NEGATIVE (NEGATIVE)
[2017-08-13 09:02] LABS: HEPATITIS A ANTIBODY IGM NEGATIVE (NEGATIVE)
== END ==
LOC: M SFHCLERA 14:32
DX: Z11.59 Encounter for screening for other viral diseases (principal)

== ENCOUNTER → 2018-01-07 | Outpatient (CLI) | payer OTHER ==
[2018-01-07 14:08] LABS: BASO # 0.1 10^3/uL (0.0-0.2); BASO % 0.7 % (0.0-1.0); EOS # 0.1 10^3/uL (0.0-0.50); EOS % 0.6 % (0.0-3.0); HEMATOCRIT 45.2 % (42.0-52.0); HEMOGLOBIN 14.8 g/dl (13.5-17.5); IMMATURE GRANULOCYTE # 0.1 10^3/uL (0-0); IMMATURE GRANULOCYTE % 0.5 % (0-3.0); LYMPH # 2.2 10^3/uL (1.5-4.5); LYMPH % 19.4 % (24.0-44.0); MEAN CORPUSCULAR HEMOGLOBIN 26.3 pg (27.0-33.0); MEAN CORPUSCULAR HGB CONC 32.7 g/dl (32.0-36.5); MEAN CORPUSCULAR VOLUME 80.4 fl (80.0-96.0); MONO # 0.6 10^3/uL (0.0-0.8); MONO % 5.3 % (0.0-5.0); NEUTROPHILS # 8.5 10^3/uL (1.8-7.7); NEUTROPHILS % 73.5 % (36.0-66.0); PLATELET COUNT, AUTOMATED 272 10^3/uL (150-450); RED BLOOD COUNT 5.62 10^6/uL (4.30-6.10); RED CELL DISTRIBUTION WIDTH 15.9 % (11.5-14.5); WHITE BLOOD COUNT 11.5 10^3/uL (4.0-10.0)
[2018-01-07 14:11] LABS: APPEARANCE, URINE CLEAR (CLEAR); BACTERIA, URINE AUTO NEGATIVE (NEGATIVE); BILIRUBIN, URINE AUTO NEGATIVE (NEGATIVE); BLOOD, URINE BLOOD NEGATIVE (NEGATIVE); COLOR, URINE YELLOW (YELLOW); GLUCOSE, URINE (UA) AUTO NEGATIVE (NEGATIVE); KETONE, URINE AUTO NEGATIVE (NEGATIVE); LEUKOCYTE ESTERASE, URINE AUTO NEGATIVE (NEGATIVE); NITRITE, URINE AUTO NEGATIVE (NEGATIVE); PROTEIN, URINE AUTO NEGATIVE (NEGATIVE); RBC, URINE AUTO 2 /HPF (0-3); SPECIFIC GRAVITY URINE AUTO 1.009 (1.002-1.035); SQUAMOUS EPITHELIAL CELL UR AU 0 /HPF (0-6); UROBILINOGEN, URINE AUTO 0.2 mg/dL (0.0-2.0); WBC, URINE AUTO 2 /HPF (0-3)
[2018-01-07 14:25] LABS: ALBUMIN 3.8 GM/DL (3.2-5.2); ALKALINE PHOSPHATASE 152 U/L (45-117); ALT/SGPT 22 U/L (12-78); ANION GAP 7 MEQ/L (8-16); AST/SGOT 16 U/L (7-37); BILIRUBIN,TOTAL 0.4 MG/DL (0.2-1.0); BLOOD UREA NITROGEN 10 MG/DL (7-18); CALCIUM LEVEL 9.3 MG/DL (8.5-10.1); CARBON DIOXIDE LEVEL 28 MEQ/L (21-32); CHLORIDE LEVEL 102 MEQ/L (98-107); CREATININE FOR GFR 0.86 MG/DL (0.70-1.30); GLOMERULAR FILTRATION RATE > 60.0 (>56); GLUCOSE, FASTING 86 MG/DL (70-100); POTASSIUM SERUM 4.4 MEQ/L (3.5-5.1); SODIUM LEVEL 137 MEQ/L (136-145)
== END ==
LOC: M LAB 13:25
DX: M05.79 Rheumatoid arthritis with rheumatoid factor of multiple sites without organ or systems involvement (principal)
CPT/HCPCS: 80053

== ENCOUNTER → 2018-06-08 | Outpatient (CLI) | payer OTHER ==
[~2018-06-08] MED LIST changes: +EPIN0.1510 IM; +EPIN0.3I11 IM; +MIRA3350 PO; +NAPR-837 PO; +NAPR-885 PO; -NAPR500T PO; -NAPR500T3 PO; +NITR0.4S14 SL; +OXYC-517 PO; +PRAV1TAB39 PO; +ULTR50TA8 PO
[2018-06-08 09:09] LABS: BASO # 0.1 10^3/uL (0.0-0.2); BASO % 0.7 % (0.0-1.0); EOS # 0.2 10^3/uL (0.0-0.50); EOS % 1.4 % (0.0-3.0); HEMATOCRIT 46.1 % (42.0-52.0); HEMOGLOBIN 15.1 g/dl (13.5-17.5); LYMPH # 2.7 10^3/uL (1.5-4.5); LYMPH % 20.4 % (24.0-44.0); MEAN CORPUSCULAR HEMOGLOBIN 26.8 pg (27.0-33.0); MEAN CORPUSCULAR HGB CONC 32.8 g/dl (32.0-36.5); MEAN CORPUSCULAR VOLUME 81.9 fl (80.0-96.0); MONO # 0.7 10^3/uL (0.0-0.8); MONO % 5.2 % (0.0-5.0); NEUTROPHILS # 9.5 10^3/uL (1.8-7.7); NEUTROPHILS % 71.8 % (36.0-66.0); PLATELET COUNT, AUTOMATED 267 10^3/uL (150-450); RED BLOOD COUNT 5.63 10^6/uL (4.30-6.10); WHITE BLOOD COUNT 13.3 10^3/uL (4.0-10.0)
[2018-06-08 09:35] LABS: ERYTHROCYTE SEDIMENTATION RATE 5 mm/hr (0-20)
[2018-06-08 09:37] LABS: HEMOGLOBIN A1c 5.8 %
[2018-06-08 09:48] LABS: ALBUMIN 3.7 GM/DL (3.2-5.2); ALT/SGPT 23 U/L (12-78); BILIRUBIN,TOTAL 0.4 MG/DL (0.2-1.0); BLOOD UREA NITROGEN 12 MG/DL (7-18); CALCIUM LEVEL 8.8 MG/DL (8.5-10.1); CARBON DIOXIDE LEVEL 27 MEQ/L (21-32); CHLORIDE LEVEL 106 MEQ/L (98-107); CHOLESTEROL LEVEL 216 MG/DL (<200); CREATININE FOR GFR 0.77 MG/DL (0.70-1.30); FREE T4 1.22 NG/DL (0.76-1.46); FREE THYROXINE INDEX 3.5 % (1.4-3.8); GLOMERULAR FILTRATION RATE > 60.0 (>56); GLUCOSE, FASTING 80 MG/DL (70-100); HDL CHOLESTEROL 36 MG/DL (>40); LDL CHOLESTEROL 145 MG/DL (<100); NON-HDL-C 180 MG/DL; POTASSIUM SERUM 4.4 MEQ/L (3.5-5.1); SODIUM LEVEL 138 MEQ/L (136-145); T UPTAKE 30 % (33-40); THYROXINE (T4) 11.6 UG/DL (4.5-12.0); TOTAL PROTEIN 7.8 GM/DL (6.4-8.2); TRIGLYCERIDES LEVEL 177 MG/DL (<150)
[2018-06-08 10:47] LABS: VITAMIN B12 LEVEL 535 PG/ML
[2018-06-08 10:48] LABS: FOLATE 5.5 NG/ML
[2018-06-09 15:30] LABS: ANTINUCLEAR ANTIBODIES DIRECT Negative (Negative)
[2018-06-12 14:12] LABS: VITAMIN B1 LEVEL WHOLE BLOOD 134.2 nmol/L (66.5-200.0); VITAMIN B6,PYRIDOXAL PHOSPHATE 3.5 ug/L (5.3-46.7)
[2018-06-13 00:07] LABS: VITAMIN E(ALPHA TOCOPHEROL) 8.9 mg/L (7.0-25.1); VITAMIN E(GAMMA TOCOPHEROL) 2.5 mg/L (0.5-5.5)
== END ==
LOC: M LAB 07:59
PROVIDERS: ATTEND Psychiatry & Neurology Neurology
DX: I10 Essential (primary) hypertension (principal); E11.9 Type 2 diabetes mellitus without complications; E07.9 Disorder of thyroid, unspecified; I63.9 Cerebral infarction, unspecified; R41.3 Other amnesia

== ENCOUNTER 2018-07-03 19:34 | Emergency (ER) | payer OTHER ==
[~2018-07-03] VITALS: Ht 182.9 cm; Wt 80.9 kg
[2018-07-03] MEDS ORDERED: IBUP80TA PO (19:43)
[2018-07-03 20:29] LABS: BASO # 0.1 10^3/uL (0.0-0.2); BASO % 0.8 % (0.0-1.0); EOS # 0.2 10^3/uL (0.0-0.50); EOS % 1.7 % (0.0-3.0); HEMATOCRIT 41.6 % (42.0-52.0); HEMOGLOBIN 13.9 g/dl (13.5-17.5); LYMPH # 3.9 10^3/uL (1.5-4.5); LYMPH % 32.3 % (24.0-44.0); MEAN CORPUSCULAR HEMOGLOBIN 27.3 pg (27.0-33.0); MEAN CORPUSCULAR HGB CONC 33.4 g/dl (32.0-36.5); MEAN CORPUSCULAR VOLUME 81.6 fl (80.0-96.0); MONO # 0.7 10^3/uL (0.0-0.8); MONO % 5.5 % (0.0-5.0); NEUTROPHILS # 7.2 10^3/uL (1.8-7.7); NEUTROPHILS % 59.4 % (36.0-66.0); PLATELET COUNT, AUTOMATED 232 10^3/uL (150-450); WHITE BLOOD COUNT 12.1 10^3/uL (4.0-10.0)
[2018-07-03 20:51] LABS: BLOOD UREA NITROGEN 23 MG/DL (7-18); CALCIUM LEVEL 8.2 MG/DL (8.5-10.1); CARBON DIOXIDE LEVEL 28 MEQ/L (21-32); CHLORIDE LEVEL 106 MEQ/L (98-107); CPK CREATINE PHOSPHOKINASE 127 U/L (39-308); CREATININE FOR GFR 1.05 MG/DL (0.70-1.30); GLOMERULAR FILTRATION RATE > 60.0 (>56); GLUCOSE, FASTING 104 MG/DL (70-100); MB/CK RELATIVE INDEX 1.18 (< OR =4); POTASSIUM SERUM 3.9 MEQ/L (3.5-5.1); SODIUM LEVEL 138 MEQ/L (136-145); TROPONIN I < 0.02 NG/ML (< 0.10)
[2018-07-03] MEDS ORDERED: ISOVUE-370 76% 100ML VIAL (Q9967) As Ordered ONE (22:37)
--- NOTE | 2018-07-03 23:29 | REPVR ---
EXAM: CT Angiography Chest With Contrast EXAM DATE/TIME: 07/03/2018 10:52 PM CLINICAL HISTORY: 52 years old, male; Chest pain; Type not specified; Additional info: Chest pain , elevated d-dimer TECHNIQUE: Imaging protocol: Axial computed tomographic angiography images of the chest with intravenous contrast using CT angiography protocol. Coronal and sagittal reformatted images were created and reviewed. 3D rendering: MIP reconstructed images were created and reviewed. Radiation optimization: All CT scans at this facility use at least one of these dose optimization techniques: automated exposure control; mA and/or kV adjustment per patient size (includes targeted exams where dose is matched to clinical indication); or iterative reconstruction. Contrast material: ISO; Contrast volume: 75 ml; Contrast route: AC; COMPARISON: CT ANGIO CHEST 02/02/2016 12:24 AM FINDINGS: Pulmonary arteries: There is opacification of pulmonary arteries with no evidence of pulmonary embolus. Aorta: There is opacification of the aorta which appears intact. Thyroid: Normal thyroid. Lungs: There is hazy interstitial density throughout the lungs probably the result of chronic interstitial lung disease. Pleural space: No pneumothorax. No pleural effusion. Heart: The heart is normal in size. There is no pericardial effusion. Mediastinum: There is a 3 CM in length by 1 cm thickness linear density right infrahilar region unchanged is 2016 and possibly scarring, lymphoid tissue or thickened bronchus. Lymph nodes: There are approximately 10 small round lymph nodes at the AP window. There is a 1.5 CM oval density in the right infrahilar region unchanged since 2016 and probably a prominent lymph node. Bones/joints: There is no evidence of bony abnormality. There is mild scoliosis of the thoracic spine. Soft tissues: Unremarkable. IMPRESSION: 1. There is no evidence of pulmonary embolus. 2. Densities at the right infrahilar region unchanged since 2016 and discussed above. 3. There is hazy interstitial density throughout the lungs and possibly chronic interstitial lung disease similar to 2016. Electronically signed by: Sixto Zendejas On 07/03/2018 23:29:10 PM
--- NOTE | 2018-07-04 00:33 | REPVR ---
EXAM: US Duplex Bilateral Lower Extremity Veins EXAM DATE/TIME: 07/04/2018 12:08 AM CLINICAL HISTORY: 52 years old, male; Pain; Leg, lower; Bilateral; Additional info: Left calf swelling elevated d/dimer TECHNIQUE: Imaging protocol: Real-time duplex ultrasound of the Bilateral Lower Extremities with 2-D gabriel scale, color Doppler flow and spectral waveform analysis. Complete exam focused on the bilateral lower extremity veins. COMPARISON: US Duplex, Ext,LOWER veins,unilat 07/22/2017 6:16 PM FINDINGS: Right deep veins: Unremarkable. The common femoral, femoral, proximal profunda femoral and popliteal veins are patent without thrombus. Normal Doppler waveforms. Normal compressibility and/or augmentation response. Right superficial veins: Saphenofemoral junction is patent without thrombus. Left deep veins: Unremarkable. The common femoral, femoral, proximal profunda femoral and popliteal veins are patent without thrombus. Normal Doppler waveforms. Normal compressibility and/or augmentation response. Left superficial veins: Saphenofemoral junction is patent without thrombus. Soft tissues: Unremarkable. IMPRESSION: No sonographic evidence of deep vein thrombosis. Electronically signed by: Paul Ellsworth On 07/04/2018 00:32:59 AM
[2018-07-04] MEDS ORDERED: KEFL500C17 PO (00:43)
[2018-07-04] MEDS ORDERED: CEPHALEXIN 500 MG CAP PO ONE (00:45)
[2018-07-04 00:52] VITALS: BP 128/73
--- NOTE | 2018-07-04 14:19 | REP ---
CHEST, PORTABLE: AP portable view of the chest is performed. Comparison 05/23/2017. There is underlying mild interstitial fibrosis in the lung bases. There is mild superimposed parenchymal opacities in the lung bases, right greater than left compatible with mild superimposed atelectasis or infiltrate. The heart is normal in size. The mediastinal silhouette is unremarkable and unchanged. Electronically Signed by Juan Mata MD 07/04/2018 03:55 P
--- NOTE | 2018-07-05 20:51 | ECGEPIP ---
Stationary ECG Study [facility] - ED Test Date: 2018-07-03 Pat Name: HOLLIS CONNELLY Department: Room: - Gender: M [employer]: : 1965 Requested By: LINDSAY Garg Order Number: [id number] Reading MD: Nita Barnett Measurements Intervals [place] Rate: 99 P: 68 CT: 136 QRS: 68 QRSD: 100 T: 43 QT: 313 QTc: 403 Interpretive Statements SINUS RHYTHM NSTTW ABNORMALITY INCREASED RATE 05/23/17 Electronically Signed On 07-05-2018 20:51:37 EDT by Nita Barnett
== END 2018-07-04 01:14 | disposition home or self-care (01) ==
LOC: M ED 19:34
DX: J40 Bronchitis, not specified as acute or chronic (principal); M06.9 Rheumatoid arthritis, unspecified; J44.9 Chronic obstructive pulmonary disease, unspecified; I25.2 Old myocardial infarction; G47.33 Obstructive sleep apnea (adult) (pediatric); R55 Syncope and collapse; Z86.73 Personal history of transient ischemic attack (TIA), and cerebral infarction without residual deficits; F17.210 Nicotine dependence, cigarettes, uncomplicated; Z79.899 Other long term (current) drug therapy; Z88.8 Allergy status to other drugs, medicaments and biological substances; Z88.5 Allergy status to narcotic agent; Z91.018 Allergy to other foods; Z91.030 Bee allergy status; Z91.013 Allergy to seafood; Z79.82 Long term (current) use of aspirin; Z79.1 Long term (current) use of non-steroidal anti-inflammatories (NSAID)
CPT/HCPCS: 71045; 71275; 80048; 82550; 82553; 85025; 85379; 93005; 93041; 93970; 94760; 99285; Q9967

== ENCOUNTER 2018-10-29 19:21 | Emergency (ER) | payer OTHER ==
[~2018-10-29] VITALS: Ht 182.9 cm; Wt 80.9 kg
[~2018-10-29 19:21] MED LIST changes: +ASPI81TA85 PO; +IBUP-1022 PO; +IBUP80TA PO; +KEFL500C17 PO; +PROV108A INH
[2018-10-29] MEDS ORDERED: CYCL10TA PO (19:25)
[2018-10-29] MEDS ORDERED: FAMOTIDINE 20 MG TAB PO ONE (19:45)
[2018-10-29] MEDS ORDERED: LORATADINE 10 MG TAB PO ONE (19:45)
[2018-10-29 21:02] VITALS: BP 135/84
== END 2018-10-29 21:19 | disposition home or self-care (01) ==
LOC: M ED 19:21
DX: S50.361A Insect bite (nonvenomous) of right elbow, initial encounter (principal); S50.861A Insect bite (nonvenomous) of right forearm, initial encounter; W57.XXXA Bitten or stung by nonvenomous insect and other nonvenomous arthropods, initial encounter; Y92.89 Other specified places as the place of occurrence of the external cause; F17.200 Nicotine dependence, unspecified, uncomplicated; Z79.82 Long term (current) use of aspirin

== ENCOUNTER 2018-11-05 12:08 | Day surgery (SDC) | payer OTHER ==
[~2018-11-05] VITALS: Ht 182.9 cm; Wt 80.1 kg
[~2018-11-05 12:08] MED LIST changes: +CYCL10TA PO; +LIDOCAINE 1% MDV 20ML VIAL SQ PRN; +LR 1,000 ML IV ONE
[2018-11-05] MEDS ORDERED: VANCOMYCIN 1000 MG/20 ML VIAL (J3370) As Ordered ONE (12:41)
[2018-11-05] MEDS ORDERED: VANCOMYCIN HCL 1,000 MG, VIAL MATE ADAPTER 1 EACH in D5W 250 ML IV ONE (13:00)
[2018-11-05] MEDS ORDERED: fentaNYL 100 MCG/2 ML INJECTION (J3010) As Ordered ONE (13:22)
[2018-11-05] MEDS ORDERED: propofoL 200 MG/20 ML VIAL As Ordered ONE (13:22)
[2018-11-05] MEDS ORDERED: MIDAZOLAM INJ 2 MG/2 ML VIAL (J2250) As Ordered ONE (13:22)
[2018-11-05] MEDS ORDERED: LIDOCAINE 1% SDV INJ 30 ML VIAL As Ordered ONE (13:27)
[2018-11-05] MEDS ORDERED: ONDANSETRON 4MG/2ML VIAL (J2405) As Ordered ONE (14:25)
[2018-11-05] MEDS ORDERED: KETOROLAC 60 MG/2 ML VIAL (J1885) As Ordered ONE (14:25)
--- NOTE | 2018-11-05 14:52 | RO ---
DATE OF PROCEDURE: 11/05/2018 PREOPERATIVE DIAGNOSIS: Unexplained syncope. POSTOPERATIVE DIAGNOSIS: Unexplained syncope. PROCEDURE PERFORMED: Implantation of [employer] implantable loop recorder. SURGEON: Romario Solis MD POWERBUILDER: None. ANESTHESIA: Lidocaine 1% local/monitored anesthetic care. FINDINGS: Unexplained syncope. No specimens. Estimated blood loss less than 2 mL. No blood products replaced. No drains. No complications. PROCEDURE DESCRIPTION: The patient was prepped and draped over the left anterior chest. Lidocaine 1% was used for local anesthetic. An incision was made approximately 1 cm in length with a #15 blade at the left fourth interspace about 1 inch lateral to the left parasternal border. The guide on the insertion tool was placed into the incision and advanced parallel to the chest wall in left lateral-caudal direction in the subcutaneous fat. The insertion tool was rotated 180 degrees. Next, the plunger was used to advance the implantable loop recorder into the subcutaneous fat. The plunger was then removed and then the insertion tool was removed leaving the loop recorder behind. The initial R wave amplitude was 1.51 mV. Next, I used a #4-0 Biosyn suture to temporarily approximate the skin edges by applying the suture subcuticular with the ends of the suture protruding a centimeter on either side. Next, three layers of Dermabond was applied. The Biosyn suture was then pulled through the incision line removing it entirely. The patient tolerated the procedure well without any immediate complications. The implantable loop recorder implanted was a [employer] Reveal LINQ, model #LNQ11 with serial #[id number].
[2018-11-05 15:10] VITALS: BP 112/72
[2018-11-06] MEDS ORDERED: PRAV20TA2 PO (16:13)
[2018-11-06] MEDS ORDERED: SPIR1CAP INH (16:13)
[2018-11-06] MEDS ORDERED: NITR4TASL SL (16:13)
== END 2018-11-05 15:20 | disposition home or self-care (01) ==
LOC: M SDC 12:08
PROVIDERS: ATTEND Internal Medicine Cardiovascular Disease
DX: R55 Syncope and collapse (principal); I10 Essential (primary) hypertension; I25.2 Old myocardial infarction; Z86.73 Personal history of transient ischemic attack (TIA), and cerebral infarction without residual deficits; E78.5 Hyperlipidemia, unspecified; F17.210 Nicotine dependence, cigarettes, uncomplicated; I25.10 Atherosclerotic heart disease of native coronary artery without angina pectoris; Z88.8 Allergy status to other drugs, medicaments and biological substances; F41.9 Anxiety disorder, unspecified; Z91.030 Bee allergy status; Z91.018 Allergy to other foods; F32.9 Major depressive disorder, single episode, unspecified; Z79.899 Other long term (current) drug therapy
CPT/HCPCS: 33285; C1764; J2250; J2405; J3010; J3370

== ENCOUNTER 2018-11-06 10:41 | Observation (INO) | payer OTHER ==
[~2018-11-06] VITALS: Ht 182.9 cm; Wt 80.0 kg
[~2018-11-06 10:41] MED LIST changes: -LIDOCAINE 1% MDV 20ML VIAL SQ PRN; -LR 1,000 ML IV ONE; +MAALOX 30 ML SUSP *UDC PO PRN
[2018-11-06 11:14] LABS: BASO # 0.1 10^3/uL (0.0-0.2); BASO % 0.5 % (0.0-1.0); EOS # 0.1 10^3/uL (0.0-0.5); EOS % 0.7 % (0.0-3.0); HEMATOCRIT 43.6 % (42.0-52.0); HEMOGLOBIN 14.5 g/dl (13.5-17.5); LYMPH # 2.4 10^3/uL (1.5-5.0); LYMPH % 19.2 % (24.0-44.0); MEAN CORPUSCULAR HEMOGLOBIN 27.1 pg (27.0-33.0); MEAN CORPUSCULAR HGB CONC 33.3 g/dl (32.0-36.5); MEAN CORPUSCULAR VOLUME 81.3 fl (80.0-96.0); MONO # 0.6 10^3/uL (0.0-0.8); MONO % 4.6 % (0.0-5.0); NEUTROPHILS # 9.2 10^3/uL (1.5-8.5); NEUTROPHILS % 74.6 % (36.0-66.0); PLATELET COUNT, AUTOMATED 272 10^3/uL (150-450); RED BLOOD COUNT 5.36 10^6/uL (4.30-6.10); WHITE BLOOD COUNT 12.3 10^3/uL (4.0-10.0)
--- NOTE | 2018-11-06 11:18 | REP ---
Clinical: Acute chest pain . Comparison: 07/03/2018 . Findings: The mediastinum and cardiac silhouette are stable and within normal limits for portable technique. The lung ross demonstrate chronic interstitial changes without acute consolidation, effusion, or pneumothorax. Skeletal structures are intact. Loop recorder in satisfactory position. Impression: No acute cardiopulmonary process appreciated. Electronically Signed by Alvarez Hart MD 11/06/2018 11:10 A
[2018-11-06 11:32] LABS: INR 0.88; PROTHROMBIN TIME 11.7 SECONDS (11.8-14.0)
[2018-11-06] MEDS ORDERED: MORPHINE 2 MG/ML 1ML VIAL (J2270) IV PRN (11:45)
[2018-11-06] MEDS ORDERED: ONDANSETRON 4MG/2ML VIAL (J2405) IV ONE (11:45)
[2018-11-06 11:46] LABS: ALBUMIN 3.6 GM/DL (3.2-5.2); ALT/SGPT 17 U/L (12-78); BILIRUBIN,DIRECT < 0.1 MG/DL (0.0-0.2); BILIRUBIN,TOTAL 0.4 MG/DL (0.2-1.0); BLOOD UREA NITROGEN 8 MG/DL (7-18); CARBON DIOXIDE LEVEL 24 MEQ/L (21-32); CHLORIDE LEVEL 107 MEQ/L (98-107); CK-MB VALUE MASS < 1.0 NG/ML (<3.6); CPK CREATINE PHOSPHOKINASE 97 U/L (39-308); GLOMERULAR FILTRATION RATE > 60.0 (>56); GLUCOSE, FASTING 90 MG/DL (70-100); LIPASE 127 U/L (73-393); MAGNESIUM LEVEL 2.2 MG/DL (1.8-2.4); MB/CK RELATIVE INDEX 1.03 (< OR =4); NT-PRO BNP 33 PG/ML (<125); POTASSIUM SERUM 4.2 MEQ/L (3.5-5.1); SODIUM LEVEL 138 MEQ/L (136-145); TOTAL PROTEIN 7.4 GM/DL (6.4-8.2); TROPONIN I < 0.02 NG/ML (< 0.10)
[2018-11-06] MEDS ORDERED: ISOVUE-370 76% 100ML VIAL (Q9967) As Ordered ONE (12:01)
--- NOTE | 2018-11-06 12:45 | REP ---
Clinical: Acute chest pain. Technique: Axial contrast enhanced images from the thoracic inlet to the upper abdomen using 100 ml Isovue 370 intravenous contrast material with coronal and sagittal re-formations. Findings: Satisfactory enhancement of the pulmonary vasculature is achieved and no filling defects are identified to suggest pulmonary embolus. Thoracic aorta is normal caliber without aneurysm or dissection. Heart and pericardium are normal. Bilateral lung ross demonstrate moderate COPD/emphysematous changes and scattered scarring along with mild posterior basilar dependent changes. No consolidation, significant nodule or mass lesion. Stable mediastinal and hilar adenopathy is essentially unchanged through 2016 along with a right infrahilar nodular density measuring approximately 1.8 cm maximal diameter (image 59) which is inseparable from the major fissure. Impression: 1. No evidence for pulmonary embolus. 2. No acute pleuroparenchymal or mediastinal process. 3. Stable chronic COPD/emphysematous changes with scattered scarring and stable adenopathy and right infrahilar density unchanged through 2016 Electronically Signed by Alvarez Hart MD 11/06/2018 12:36 P
[2018-11-06] MEDS ORDERED: SPIR1CAP INH (16:13)
[2018-11-06] MEDS ORDERED: NITR4TASL SL (16:13)
[2018-11-06] MEDS ORDERED: PRAV20TA2 PO (16:13)
[2018-11-06] MEDS ORDERED: ALBUTEROL SULFATE 2.5 MG/0.5 ML INH NEB SOLN NEB PRN (17:45)
--- NOTE | 2018-11-06 17:59 | HPEPDOC ---
General Date of Admission Nov 06, 2018 at 10:42 Date of Service: Nov 06, 2018 Chief Complaint The patient is a 53-year-old male admitted with a reason for visit of Dizziness. History of Present Illness 53m with hx of cad, cvas, arpita on cpap, ild, copd, RA, complex partial seizure, recurrent syncope s/p ILR placement yesterday. He reports last night he was having some pain at the site and took a naproxen. He started getting nauseous last night. This morning he woke up and feels incredibly dizzy and nauseous. he has not been able to tolerate any food or drink. He describes it as the world spinning around him. It does not worsen with head movement but does worsen with standing. No change in bladder or bowel, no sob, no chest pain, no palpitations. Full ros was performed and negative except as above. Home Medications Scheduled Aspirin (Aspir 81) 81 Mg Tablet.dr, 81 MG PO DAILY, (Reported) Pravastatin Sodium (Pravastatin Sodium) 20 Mg Tablet, 20 MG PO Q3RD, (Reported) Tiotropium Perdido (Spiriva) 18 Mcg Cap.w.dev, 1 INHALATION INH DAILY, (Reported) NEW MEDICATION - PATIENT HAS NOT STARTED YET Scheduled PRN Albuterol Sulfate (Proventil Hfa) 6.7 Gm Hfa.aer.ad, 2 PUFF INH QID PRN for SHORTNESS OF BREATH, (Reported) Cyclobenzaprine HCl (Cyclobenzaprine HCl) 10 Mg Tablet, 10 MG PO TID PRN for MUSCLE SPASMS, (Reported) Naproxen (Naproxen) 500 Mg Tab, 500 MG PO BID PRN for PAIN, (Reported) Nitroglycerin (Nitrostat) 0.4 Mg Tab.subl, 0.4 MG SL NITRO PRN for CHEST PAIN, (Reported) Allergies Coded Allergies: bee venom protein (honey bee) (Verified Allergy, Severe, anaphylaxis, 11/04/18) shellfish derived (Verified Allergy, Severe, anaphylaxis, 11/04/18) sulfasalazine (Verified Allergy, Severe, rapid heart rate , 11/04/18) per Dr documents acetaminophen (Verified Allergy, Intermediate, hives/sleepy/vomiting , 11/04/18) cephalexin (Verified Allergy, Intermediate, rash, 11/04/18) per Dr documents asparagus (Verified Allergy, Mild, rash, 11/04/18) tramadol (Verified Adverse Reaction, Severe, seizure , 11/04/18) codeine (Verified Adverse Reaction, Intermediate, confusion, shaking, 11/04/18) methotrexate (Verified Adverse Reaction, Intermediate, rapid HR, 11/04/18) per Dr documents methylprednisolone (Verified Adverse Reaction, Intermediate, rapid heart rate , 11/04/18) prednisone (Verified Adverse Reaction, Intermediate, weakness/ rapid heart rate , 11/04/18) Gdapkqd-Ajy-Wao Reductase Inhibitor (Verified Adverse Reaction, Mild, hot/sweaty, 11/04/18) grape flavor (Verified Adverse Reaction, Unknown, ARTIFICIAL FLAVOR, RAPID HEART RATE, 11/04/18) Uncoded Allergies: NONDAIRY CREAMER (Allergy, Unknown, heart races, 11/04/18) Family History Significant Family History: Cancer, Heart disease Social History * Smoker: former Smoker Alcohol: Denies Drugs: denies A-FIB/CHADSVASC A-FIB History Current/History of A-Fib/PAF?: No Current PO Anticoag Therapy: No Age/Risk Factor Scoring CHADSVASC: CHADSVASC Response (Comments) Value Age Risk Factor Age < 65 years old 0 Gender Risk Factor Male 0 Hx of CHF No 0 Hx of HTN Yes 1 Hx of Stroke/TIA/or VTE Yes 2 Hx of Diabetes No 0 Hx of Vascular Disease No 0 Total 3 Treatment Treatment ordered: NONE Reason Anticoagulant not given: Not indicated/[id number] Physical Examination General Exam: Positive: Alert, No Acute Distress Eye Exam: Positive: PERRLA, Conjunctiva & lids normal, EOMI; Negative: Sclera icteric ENT Exam: Positive: Atraumatic, Mucous membr. moist/pink, Pharynx Normal Neck Exam: Positive: Supple; Negative: JVD, thyromegaly Chest Exam: Positive: Clear to auscultation, Normal air movement Heart Exam: Positive: Rate Normal, Regular Rhythm, Normal S1, Normal S2; Negative: Murmurs, Rubs Telemetry: Positive: No significant arrhythmia Abdomen Exam: Positive: Normal bowel sounds, Soft; Negative: Tenderness, Hepatospenomegaly Extremity Exam: Positive: Normal pulses; Negative: Clubbing, Cyanosis, Edema Skin Exam: Positive: Nl turgor and temperature; Negative: Breakdown, Lesion Neuro Exam: Positive: Normal Gait, Normal Speech, Cranial Nerves 3-12 NL, Re flexes 2+ Psych Exam: Positive: Mental status NL, Mood NL, Oriented x 3 Other physical findings heart rate increased 20 bpm between laying and standing Vital Signs Vital Signs Date Time Temp Pulse Resp B/P (MAP) Pulse Ox O2 Delivery O2 Flow Rate FiO2 11/06/18 17:30 73 119/75 (90) 96 11/06/18 16:30 18 Room Air 11/06/18 10:51 98.1 Laboratory Data Labs 24H Laboratory Tests 2 11/06/18 11:01: Immature Granulocyte % (Auto) 0.4, White Blood Count 12.3H, Red Blood Count 5.36, Hemoglobin 14.5, Hematocrit 43.6, Mean Corpuscular Volume 81.3, Mean Corpuscular Hemoglobin 27.1, Mean Corpuscular Hemoglobin Concent 33.3, Red Cell Distribution Width 14.8H, Platelet Count 272, Neutrophils (%) (Auto) 74.6H, Lymphocytes (%) (Auto) 19.2L, Monocytes (%) (Auto) 4.6, Eosinophils (%) (Auto) 0.7, Basophils (%) (Auto) 0.5, Neutrophils # (Auto) 9.2H, Lymphocytes # (Auto) 2.4, Monocytes # (Auto) 0.6, Eosinophils # (Auto) 0.1, Basophils # (Auto) 0.1, Nucleated Red Blood Cells % (auto) 0.0, Prothrombin Time 11.7L, Prothromb Time International Ratio 0.88, Anion Gap 7L, Glomerular Filtration Rate > 60.0, Calcium Level 9.0, Magnesium Level 2.2, Aspartate Amino Transf (AST/SGOT) 15, Alanine Aminotransferase (ALT/SGPT) 17, Alkaline Phosphatase 152H, Total Bilirubin 0.4, Direct Bilirubin < 0.1, Total Creatine Kinase 97, Creatine Kinase MB < 1.0, Creatine Kinase MB Relative Index 1.03, Troponin I < 0.02, NZ-Zct-L-Type Natriuretic Peptide 33, Total Protein 7.4, Albumin 3.6, Albumin/Globulin Ratio 0.95L, Lipase 127, Thyroid Stimulating Hormone (TSH) 2.960 CBC/BMP Laboratory Tests 11/06/18 11:01 Red Blood Count 5.36, Mean Corpuscular Volume 81.3, Mean Corpuscular Hemoglobin 27.1, Mean Corpuscular Hemoglobin Concent 33.3, Red Cell Distribution Width 14.8 H, Neutrophils (%) (Auto) 74.6 H, Lymphocytes (%) (Auto) 19.2 L, Monocytes (%) (Auto) 4.6, Eosinophils (%) (Auto) 0.7, Basophils (%) (Auto) 0.5, Neutrophils # (Auto) 9.2 H, Lymphocytes # (Auto) 2.4, Monocytes # (Auto) 0.6, Eosinophils # (Auto) 0.1, Basophils # (Auto) 0.1 Assessment/Plan 53m presenting with dizziness hr does increase with standing will try a fluid challenge given hx of cva will get a head ct if unremarkable and pt does not improve with fluids would consider an mri to rule out posterior cva check ua arpita continue cpap copd continue albuterol and spiriva cad/cva continue pravastatin as tolerated continue asa Plan / VTE VTE Prophylaxis Ordered?: Yes LARRY ALMAGUER MD Nov 06, 2018 17:59
[2018-11-06] MEDS ORDERED: NS 1,000 ML IV ONE (18:00)
--- NOTE | 2018-11-06 18:31 | REPVR ---
EXAM: CT Head Without Contrast EXAM DATE/TIME: 11/06/2018 5:22 PM CLINICAL HISTORY: 53 years old, male; Other: Vertigo TECHNIQUE: Imaging protocol: Computed tomography of the head without contrast. Radiation optimization: All CT scans at this facility use at least one of these dose optimization techniques: automated exposure control; mA and/or kV adjustment per patient size (includes targeted exams where dose is matched to clinical indication); or iterative reconstruction. COMPARISON: CT Head without contrast 04/03/2016 7:44 PM FINDINGS: Brain: Normal. No hemorrhage. Unremarkable white matter. No mass effect. Ventricles: Normal. No ventriculomegaly. Bones/joints: Unremarkable. No acute fracture. Sinuses: Visualized sinuses are unremarkable. No fluid levels. Mastoid air cells: Visualized mastoid air cells are well aerated. Soft tissues: Unremarkable. IMPRESSION: No acute intracranial abnormality. Electronically signed by: Leighton Lara On 11/06/2018 18:30:30 PM
[2018-11-06] MEDS ORDERED: NS 1,000 ML IV SCH (19:00)
--- NOTE | 2018-11-06 19:25 | ECGEPIP ---
[facility] - ED Test Date: 2018-11-06 Pat Name: HOLLIS CONNELLY Department: Room: - Gender: Male [employer]er: : 1965 Requested By: Nita Barnett Order Number: [id number] Reading MD: Osei Fajardo Measurements Intervals [place] Rate: 100 P: 73 [place]: 142 QRS: 66 QRSD: 102 T: 41 QT: 329 QTc: 426 Interpretive Statements SINUS TACHYCARDIA BASELINE ARTIFACT AFFECTS INTERPRETATION SIMILAR TO 07/03/18 Electronically Signed on 11-06-2018 19:25:42 EDT by Osei Fajardo
[2018-11-06] MEDS ORDERED: PRAVASTATIN 20 MG TAB PO SCH (21:00)
[2018-11-06 22:00] VITALS: BP 123/76
--- NOTE | 2018-11-07 04:02 | DS.PDOC ---
Discharge Summary General Date of Admission Nov 06, 2018 at 10:42 Date of Discharge Nov 07 2018 Primary Care Physician: KARRIE HOLBROOK MD Attending Physician: LARRY ALMAGUER MD Discharge Summary PROCEDURES PERFORMED DURING STAY: [None]. ADMITTING DIAGNOSES: 1. Dizziness DISCHARGE DIAGNOSES: 1. Dizziness 2. Left AMA COMPLICATIONS/CHIEF COMPLAINT: Dizziness. HISTORY OF PRESENT ILLNESS: Per HPI is a "53m with hx of cad, cvas, arpita on cpap, ild, copd, RA, complex partial seizure, recurrent syncope s/p ILR placement yesterday. He reports last night he was having some pain at the site and took a naproxen. He started getting nauseous last night. This morning he woke up and feels incredibly dizzy and nauseous. he has not been able to tolerate any food or drink. He describes it as the world spinning around him. It does not worsen with head movement but does worsen with standing. No change in bladder or bowel, no sob, no chest pain, no palpitations." HOSPITAL COURSE: He was admitted for evaluation of dizziness. At around 3:45AM he asked to leave AMA citing that he couldn't sleep here because this is the hospital that his father in recently. Despite being told the risks of leaving AMA include falling and even he choose to leave. DISCHARGE MEDICATIONS: Please see below. ALLERGIES: Please see below. PHYSICAL EXAMINATION ON DISCHARGE: VITAL SIGNS: Please see below. GENERAL: slightly anxious HEENT: NCAT EXTREMITIES: ISHMAEL x 4 extremities, able to walk without assistance. PSYCHIATRIC EXAMINATION: alert and oriented LABORATORY DATA: Please see below. IMAGING: see permanent medical record PROGNOSIS: guarded ACTIVITY: [As tolerated]. DIET: n/a DISCHARGE PLAN: n/a left AMA DISPOSITION: . DISCHARGE INSTRUCTIONS: 1. He was instructed to return to this hospital or another hospital if his symptoms reoccured ITEMS TO FOLLOWUP ON ON OUTPATIENT: 1. dizziness DISCHARGE CONDITION: left AMA TIME SPENT ON DISCHARGE: approximately 10 minutes. Vital Signs/I&Os Vital Signs Date Time Temp Pulse Resp B/P (MAP) Pulse Ox O2 Delivery O2 Flow Rate FiO2 11/06/18 22:00 97.6 69 17 123/76 (92) 97 11/06/18 21:02 Room Air I&O- Last 24 Hours up to 6 AM 11/07/18 06:00 Intake Total 1350 ml Output Total 0 ml Balance 1350 ml Laboratory Data Labs 24H Laboratory Tests 2 11/06/18 11:01: Immature Granulocyte % (Auto) 0.4, White Blood Count 12.3H, Red Blood Count 5.36, Hemoglobin 14.5, Hematocrit 43.6, Mean Corpuscular Volume 81.3, Mean Corpuscular Hemoglobin 27.1, Mean Corpuscular Hemoglobin Concent 33.3, Red Cell Distribution Width 14.8H, Platelet Count 272, Neutrophils (%) (Auto) 74.6H, Lymphocytes (%) (Auto) 19.2L, Monocytes (%) (Auto) 4.6, Eosinophils (%) (Auto) 0.7, Basophils (%) (Auto) 0.5, Neutrophils # (Auto) 9.2H, Lymphocytes # (Auto) 2.4, Monocytes # (Auto) 0.6, Eosinophils # (Auto) 0.1, Basophils # (Auto) 0.1, Nucleated Red Blood Cells % (auto) 0.0, Prothrombin Time 11.7L, Prothromb Time International Ratio 0.88, Anion Gap 7L, Glomerular Filtration Rate > 60.0, Calcium Level 9.0, Magnesium Level 2.2, Aspartate Amino Transf (AST/SGOT) 15, Alanine Aminotransferase (ALT/SGPT) 17, Alkaline Phosphatase 152H, Total Bilirubin 0.4, Direct Bilirubin < 0.1, Total Creatine Kinase 97, Creatine Kinase MB < 1.0, Creatine Kinase MB Relative Index 1.03, Troponin I < 0.02, SK-Ovw-J-Type Natriuretic Peptide 33, Total Protein 7.4, Albumin 3.6, Albumin/Globulin Ratio 0.95L, Lipase 127, Thyroid Stimulating Hormone (TSH) 2.960 11/06/18 21:40: Urine Color STRAW, Urine Appearance CLEAR, Urine pH 7.0, Urine Specific [place] 1.006, Urine Protein NEGATIVE, Urine Glucose (UA) NEGATIVE, Urine Ketones NEGATIVE, Urine Blood NEGATIVE, Urine Nitrite NEGATIVE, Urine Bilirubin NEGATIVE, Urine Urobilinogen 0.2, Urine Leukocyte Esterase NEGATIVE, Urine WBC (Auto) 0, Urine RBC (Auto) 1, Urine Hyaline Casts (Auto) 0, Urine Bacteria (Auto) NEGATIVE, Urine Squamous Epithelial Cells 0, Urine Sperm (Auto) CBC/BMP Laboratory Tests 11/06/18 11:01 Red Blood Count 5.36, Mean Corpuscular Volume 81.3, Mean Corpuscular Hemoglobin 27.1, Mean Corpuscular Hemoglobin Concent 33.3, Red Cell Distribution Width 14.8 H, Neutrophils (%) (Auto) 74.6 H, Lymphocytes (%) (Auto) 19.2 L, Monocytes (%) (Auto) 4.6, Eosinophils (%) (Auto) 0.7, Basophils (%) (Auto) 0.5, Neutrophils # (Auto) 9.2 H, Lymphocytes # (Auto) 2.4, Monocytes # (Auto) 0.6, Eosinophils # (Auto) 0.1, Basophils # (Auto) 0.1 Discharge Medications Scheduled Aspirin (Aspir 81) 81 Mg Tablet.dr, 81 MG PO DAILY, (Reported) Pravastatin Sodium (Pravastatin Sodium) 20 Mg Tablet, 20 MG PO Q3RD, (Reported) Tiotropium [place] (Spiriva) 18 Mcg Cap.w.dev, 1 INHALATION INH DAILY, (Reported) NEW MEDICATION - PATIENT HAS NOT STARTED YET Scheduled PRN Albuterol Sulfate (Proventil Hfa) 6.7 Gm Hfa.aer.ad, 2 PUFF INH QID PRN for SH ORTNESS OF BREATH, (Reported) Naproxen (Naproxen) 500 Mg Tab, 500 MG PO BID PRN for PAIN, (Reported) Nitroglycerin (Nitrostat) 0.4 Mg Tab.subl, 0.4 MG SL NITRO PRN for CHEST PAIN, (Reported) Allergies Coded Allergies: bee venom protein (honey bee) (Verified Allergy, Severe, anaphylaxis, 11/04/18) shellfish derived (Verified Allergy, Severe, anaphylaxis, 11/04/18) sulfasalazine (Verified Allergy, Severe, rapid heart rate , 11/04/18) per Dr documents acetaminophen (Verified Allergy, Intermediate, hives/sleepy/vomiting , 11/04/18) cephalexin (Verified Allergy, Intermediate, rash, 11/04/18) per Dr documents asparagus (Verified Allergy, Mild, rash, 11/04/18) tramadol (Verified Adverse Reaction, Severe, seizure , 11/04/18) codeine (Verified Adverse Reaction, Intermediate, confusion, shaking, 11/04/18) methotrexate (Verified Adverse Reaction, Intermediate, rapid HR, 11/04/18) per Dr documents methylprednisolone (Verified Adverse Reaction, Intermediate, rapid heart rate , 11/04/18) prednisone (Verified Adverse Reaction, Intermediate, weakness/ rapid heart rate , 11/04/18) Gtjwagv-Vya-Gzs Reductase Inhibitor (Verified Adverse Reaction, Mild, hot/sweaty, 11/04/18) grape flavor (Verified Adverse Reaction, Unknown, ARTIFICIAL FLAVOR, RAPID HEART RATE, 11/04/18) Uncoded Allergies: NONDAIRY CREAMER (Allergy, Unknown, heart races, 11/04/18) NIC JUARES MD Nov 07, 2018 04:02
[2018-11-07] MEDS ORDERED: TIOTROPIUM INHALER/CAPSULE (SPIRIVA) INH SCH (08:00)
[2018-11-07] MEDS ORDERED: ASPIRIN 81 MG ENTERIC TAB PO SCH (09:00)
[2018-11-07] MEDS ORDERED: ENOXAPARIN 40 MG/0.4 ML SYRINGE (J1650) SC SCH (09:00)
== END 2018-11-07 04:08 | disposition left against medical advice (07) ==
LOC: M ED 10:41 → M ED INP 10:42 → M MSPAV 21:47
PROVIDERS: ADMIT Hospitalist; ATTEND Hospitalist
DX: R42 Dizziness and giddiness (principal); Z53.21 Procedure and treatment not carried out due to patient leaving prior to being seen by health care provider; Z95.818 Presence of other cardiac implants and grafts; I25.10 Atherosclerotic heart disease of native coronary artery without angina pectoris; G47.33 Obstructive sleep apnea (adult) (pediatric); J44.9 Chronic obstructive pulmonary disease, unspecified; J84.9 Interstitial pulmonary disease, unspecified; M06.9 Rheumatoid arthritis, unspecified; Z79.82 Long term (current) use of aspirin; Z91.030 Bee allergy status; Z91.013 Allergy to seafood; Z88.1 Allergy status to other antibiotic agents; Z88.8 Allergy status to other drugs, medicaments and biological substances; Z91.018 Allergy to other foods; Z79.899 Other long term (current) drug therapy
CPT/HCPCS: 70450; 71045; 71275; 80048; 80076; 81001; 82550; 82553; 83690; 83735; 83880; 84443; 85025; 85610; 93005; 93041; 94760; 96361; 96374; 96375; 99285; J2270; J2405; Q9967

== ENCOUNTER 2018-11-11 14:15 | Day surgery (SDC) | payer OTHER ==
[~2018-11-11] VITALS: Ht 177.8 cm; Wt 79.8 kg
[~2018-11-11 14:15] MED LIST changes: -MAALOX 30 ML SUSP *UDC PO PRN; +PRAV20TA2 PO; +SPIR1CAP INH
[2018-11-11] MEDS ORDERED: LIDOCAINE 1% SDV INJ 30 ML VIAL As Ordered ONE (16:17)
[2018-11-11] MEDS ORDERED: LIDOCAINE 2% INJ 100 MG/5 ML SDV (FOR ANES.) As Ordered ONE (17:08)
[2018-11-11] MEDS ORDERED: PROPOFOL 200 MG/20 ML VIAL As Ordered ONE (17:08)
[2018-11-11] MEDS ORDERED: fentaNYL 100 MCG/2 ML INJECTION (J3010) As Ordered ONE (17:08)
[2018-11-11] MEDS ORDERED: MIDAZOLAM INJ 2 MG/2 ML VIAL (J2250) As Ordered ONE (17:08)
[2018-11-11] MEDS ORDERED: CLINDAMYCIN 900 MG/50 ML PREMIX BAG As Ordered ONE (17:26)
[2018-11-11] MEDS ORDERED: CLINDAMYCIN 900 MG in APPROPRIATE DILUENT 1 EA IV ONE (17:30)
[2018-11-11] MEDS ORDERED: NEOSPORIN TOP OINT 15GM As Ordered ONE (18:00)
[2018-11-11 19:15] VITALS: BP 115/75
[2018-11-11] MEDS ORDERED: LR 1,000 ML IV SCH (19:15)
[2018-11-11] MEDS ORDERED: PERCOCET 5MG/325MG TAB PO PRN (19:15)
--- NOTE | 2018-11-12 06:51 | RO ---
DATE OF PROCEDURE: 11/11/2018 PREOPERATIVE DIAGNOSIS: Implantable loop recorder in situ. POSTOPERATIVE DIAGNOSIS: Implantable loop recorder in situ. FINDINGS: Implantable loop recorder in situ. PROCEDURE PERFORMED: Explantation of Medtronic implantable loop recorder. SURGEON: Romario Solis MD EMT P: None. ANESTHESIA: Lidocaine 1% local, monitored anesthetic care. SPECIMENS: Medtronic Reveal LINQ implantable loop recorder. ESTIMATED BLOOD LOSS: Less than 1 mL. BLOOD PRODUCTS REPLACED: None. DRAINS: None. COMPLICATIONS: None. PROCEDURE DESCRIPTION: The Dermabond was removed prior to the start of the procedure by applying triple antibiotic, rubbing it over the Dermabond to dissolve and loosen it. Following successful removal of the Dermabond, the patient was then prepped and draped. Lidocaine 1% was used for local anesthetic. An incision was made with the #15 blade through the existing incision of the implantable loop recorder. A snap was then used to zone supervisor firearms the implantable loop recorder and pull it out of the pocket. Of note was that there was no pus from the pocket. The incision was then approximated temporarily using a Biosyn #4-0 suture to approximate the skin edges subcuticular with the free ends of the stitch protruding 1 cm from the skin on either end of the incision. Next, three layers of Dermabond was applied. The Biosyn suture was then pulled through the incision line and removed entirely. The patient tolerated the procedure well without any immediate complications. [facility]
== END 2018-11-11 19:20 | disposition home or self-care (01) ==
LOC: M SDC 14:15
PROVIDERS: ATTEND Internal Medicine Cardiovascular Disease
DX: Z45.09 Encounter for adjustment and management of other cardiac device (principal); R55 Syncope and collapse; I25.2 Old myocardial infarction; I25.10 Atherosclerotic heart disease of native coronary artery without angina pectoris; E78.49 Other hyperlipidemia; J44.9 Chronic obstructive pulmonary disease, unspecified; Z88.2 Allergy status to sulfonamides; Z91.013 Allergy to seafood; Z88.5 Allergy status to narcotic agent; Z88.8 Allergy status to other drugs, medicaments and biological substances
CPT/HCPCS: 33286; J2250; J3010

== ENCOUNTER 2019-05-07 16:47 | Emergency (ER) | payer OTHER ==
[~2019-05-07] VITALS: Ht 185.4 cm; Wt 78.6 kg
[~2019-05-07 16:47] MED LIST changes: -COMBAER6 INH; -ZOFR4TAB16 PO
[2019-05-07] MEDS ORDERED: COMBAER6 INH (16:55)
[2019-05-07] MEDS ORDERED: KETOROLAC 30 MG/ML VIAL (J1885) IV ONE (18:00)
--- NOTE | 2019-05-07 18:38 | REPVR ---
PROCEDURE INFORMATION: Exam: US Duplex Left Lower Extremity Veins, Limited Exam date and time: 05/07/2019 6:10 PM Age: 53 years old Clinical indication: Pain; Leg, upper and other: Groin; Left; Additional info: Lft groin/thigh pain TECHNIQUE: Imaging protocol: Real-time Duplex ultrasound of the Left Lower Extremity with 2-D gabriel scale, color Doppler flow and spectral waveform analysis with image documentation. Limited exam focused on the left lower extremity veins. COMPARISON: US Duplex, Ext LOWER veins, bilat 07/03/2018 11:56 PM FINDINGS: Left deep veins: Unremarkable. The common femoral, femoral and popliteal veins are patent without thrombus. Normal compressibility, augmentation response and Doppler waveforms. Left superficial veins: Unremarkable. Saphenofemoral junction is patent without thrombus. Soft tissues: Unremarkable. IMPRESSION: No sonographic evidence of deep vein thrombosis. Electronically signed by: Paul Ellsworth On 05/07/2019 18:37:47 PM
[2019-05-07 18:44] LABS: BASO # 0.1 10^3/uL (0.0-0.2); BASO % 0.7 % (0.0-1.0); EOS # 0.1 10^3/uL (0.0-0.5); EOS % 1.4 % (0.0-3.0); HEMATOCRIT 42.9 % (42.0-52.0); LYMPH # 2.8 10^3/uL (1.5-5.0); LYMPH % 28.5 % (24.0-44.0); MEAN CORPUSCULAR HEMOGLOBIN 26.1 pg (27.0-33.0); MEAN CORPUSCULAR HGB CONC 32.6 g/dl (32.0-36.5); MEAN CORPUSCULAR VOLUME 79.9 fl (80.0-96.0); MONO # 0.7 10^3/uL (0.0-0.8); NEUTROPHILS # 6.1 10^3/uL (1.5-8.5); NEUTROPHILS % 62.1 % (36.0-66.0); PLATELET COUNT, AUTOMATED 256 10^3/uL (150-450); RED BLOOD COUNT 5.37 10^6/uL (4.30-6.10); WHITE BLOOD COUNT 9.8 10^3/uL (4.0-10.0)
[2019-05-07 18:57] LABS: INR 1.01
[2019-05-07 18:58] LABS: PARTIAL THROMBOPLASTIN TIME 29.8 SECONDS (25.0-38.4)
[2019-05-07] MEDS ORDERED: ISOVUE-370 76% 100ML VIAL (Q9967) As Ordered ONE (19:03)
[2019-05-07 19:08] LABS: ALBUMIN 3.6 GM/DL (3.2-5.2); BILIRUBIN,DIRECT 0.1 MG/DL (0.0-0.2); BILIRUBIN,TOTAL 0.5 MG/DL (0.2-1.0); TOTAL PROTEIN 7.2 GM/DL (6.4-8.2)
--- NOTE | 2019-05-07 19:30 | REPVR ---
PROCEDURE INFORMATION: Exam: CT Abdomen And Pelvis With Contrast Exam date and time: 05/07/2019 7:04 PM Age: 53 years old Clinical indication: Pain; Other: Groin; Additional info: Left groin pain TECHNIQUE: Imaging protocol: Computed tomography of the abdomen and pelvis with intravenous contrast. Axial, coronal and sagittal reformatted images were created and reviewed. Radiation optimization: All CT scans at this facility use at least one of these dose optimization techniques: automated exposure control; mA and/or kV adjustment per patient size (includes targeted exams where dose is matched to clinical indication); or iterative reconstruction. Contrast material: ISOVUE 370; Contrast volume: 100 ml; Contrast route: IV; COMPARISON: CT ABD/PEL W/IV ORAL CONTRAS 05/06/2017 5:31 PM FINDINGS: Lungs: Linear stranding and groundglass at the lung bases, likely due to atelectasis and/or scarring. Mild emphysema. Liver: Unremarkable. Gallbladder and bile ducts: No radiodense gallstones. No biliary ductal dilatation. Pancreas: Unremarkable. Spleen: Unremarkable. Adrenals: Unremarkable. Kidneys and ureters: No mass. No radiodense calculi. No hydronephrosis. Stomach and bowel: Colonic diverticulosis without evidence of diverticulitis. No obstruction. No bowel wall thickening. No pneumatosis. Appendix: Normal. Intraperitoneal space: No free fluid. No organized fluid collection. No free air. Vasculature: Mild atherosclerotic disease. No aneurysm or dissection. Lymph nodes: No pathologically enlarged lymph nodes. Bladder: Mild circumferential urinary bladder wall thickening, likely secondary to underdistention. Reproductive: Unremarkable. Bones/joints: No acute osseous abnormality. Soft tissues: Unremarkable. IMPRESSION: 1. No CT evidence of acute intra-abdominal or pelvic pathology. 2. Additional findings, as above. Electronically signed by: Paul Ellsworth On 05/07/2019 19:30:01 PM
[2019-05-07 19:57] VITALS: BP 121/75
== END 2019-05-07 20:05 | disposition home or self-care (01) ==
LOC: M ED 16:47
DX: R10.30 Lower abdominal pain, unspecified (principal); R56.9 Unspecified convulsions; I25.2 Old myocardial infarction; E78.5 Hyperlipidemia, unspecified; J44.9 Chronic obstructive pulmonary disease, unspecified; K21.9 Gastro-esophageal reflux disease without esophagitis; M54.9 Dorsalgia, unspecified; F41.9 Anxiety disorder, unspecified; F32.9 Major depressive disorder, single episode, unspecified; F17.210 Nicotine dependence, cigarettes, uncomplicated; Z86.73 Personal history of transient ischemic attack (TIA), and cerebral infarction without residual deficits; Z79.899 Other long term (current) drug therapy; Z79.82 Long term (current) use of aspirin; Z79.1 Long term (current) use of non-steroidal anti-inflammatories (NSAID); Z88.8 Allergy status to other drugs, medicaments and biological substances; Z88.6 Allergy status to analgesic agent; Z88.1 Allergy status to other antibiotic agents; Z88.2 Allergy status to sulfonamides; Z88.5 Allergy status to narcotic agent; Z91.030 Bee allergy status; Z91.013 Allergy to seafood; Z91.018 Allergy to other foods
CPT/HCPCS: 74177; 80047; 80076; 81001; 83605; 85025; 85610; 85730; 93971; 96374; 99284; J1885; Q9967

== ENCOUNTER → 2019-05-07 | Outpatient (CLI) | payer OTHER ==
[~2019-05-07] MED LIST changes: +COMBAER6 INH; +ZOFR4TAB16 PO
--- NOTE | 2019-05-07 17:02 | REP ---
LEFT HIP, TWO VIEWS: Two views of the left hip performed. No fracture or dislocation is seen. Tiny calcific density at the superior margin of the acetabulum could represent an old chip fracture or tiny accessory ossicle. It is unchanged since the exam of 01/23/2014. No acute abnormalities are seen. The hip joint appears essentially unremarkable and unchanged. IMPRESSION: Negative left hip series. Electronically Signed by Juan Mata MD 05/11/2019 04:15 P
== END ==
LOC: M LRY 14:36
PROVIDERS: ATTEND Nurse Practitioner Family
DX: M25.552 Pain in left hip (principal)

== ENCOUNTER 2019-05-11 12:17 | Emergency (ER) | payer OTHER ==
[~2019-05-11] VITALS: Ht 182.9 cm; Wt 79.9 kg
[~2019-05-11 12:17] MED LIST changes: +COMBAER6 INH
[2019-05-11 13:43] LABS: BASO # 0.1 10^3/uL (0.0-0.2); BASO % 0.8 % (0.0-1.0); EOS # 0.1 10^3/uL (0.0-0.5); HEMATOCRIT 45.4 % (42.0-52.0); HEMOGLOBIN 14.7 g/dl (13.5-17.5); LYMPH # 2.3 10^3/uL (1.5-5.0); LYMPH % 19.9 % (24.0-44.0); MEAN CORPUSCULAR HEMOGLOBIN 26.2 pg (27.0-33.0); MEAN CORPUSCULAR HGB CONC 32.4 g/dl (32.0-36.5); MEAN CORPUSCULAR VOLUME 80.8 fl (80.0-96.0); MONO # 0.5 10^3/uL (0.0-0.8); MONO % 4.7 % (0.0-5.0); NEUTROPHILS # 8.3 10^3/uL (1.5-8.5); PLATELET COUNT, AUTOMATED 291 10^3/uL (150-450); RED BLOOD COUNT 5.62 10^6/uL (4.30-6.10); WHITE BLOOD COUNT 11.4 10^3/uL (4.0-10.0)
[2019-05-11] MEDS ORDERED: METOCLOPRAMIDE INJ 10MG/2ML VIAL (J2765) IV ONE (13:45)
[2019-05-11] MEDS ORDERED: NS 1,000 ML IV ONE (13:45)
[2019-05-11] MEDS ORDERED: PANTOPRAZOLE 40MG INJ (PROTONIX) (C9113) IV ONE (13:45)
--- NOTE | 2019-05-11 14:06 | REP ---
CT of the abdomen and pelvis without IV and oral contrast for abdominal pain/diarrhea: Comparison is 05/07/2019. The visualized lung ross demonstrate occasional bulla within the lung parenchyma. The basilar atelectatic changes identified on the prior study have resolved. The unenhanced hepatic parenchyma is homogeneous. The unenhanced gallbladder, pancreas and spleen are normal size and unremarkable. The adrenals are unremarkable. There are no renal calculi. There is no hydronephrosis. No perinephric stranding. The unenhanced kidneys are otherwise unremarkable. The abdominal aorta is unremarkable. There is no periaortic adenopathy or mass. There is no bowel distension or obstruction. Mesentery is unremarkable. There is no ascites or mesenteric adenopathy. Pelvis: The appendix is unremarkable. There is sigmoid colon diverticulosis without diverticulitis. There is mild wall thickening of the descending colon. This is nonspecific but could represent colitis in the appropriate clinical setting. The bladder is unremarkable. There is no pelvic ascites or adenopathy. Impression: Wall thickening of the descending colon, nonspecific but possibly colitis in the appropriate clinical setting. Sigmoid colon diverticulosis without diverticulitis. No bowel distension or obstruction. No ascites, adenopathy or mass. Otherwise, negative CT of the abdomen and pelvis. Electronically Signed by Juan York MD 05/11/2019 01:58 P
[2019-05-11 14:13] LABS: ALBUMIN 3.7 GM/DL (3.2-5.2); ALT/SGPT 18 U/L (12-78); BILIRUBIN,DIRECT 0.1 MG/DL (0.0-0.2); BILIRUBIN,TOTAL 0.5 MG/DL (0.2-1.0); BLOOD UREA NITROGEN 13 MG/DL (7-18); CALCIUM LEVEL 8.7 MG/DL (8.5-10.1); CARBON DIOXIDE LEVEL 25 MEQ/L (21-32); CHLORIDE LEVEL 105 MEQ/L (98-107); CREATININE FOR GFR 0.91 MG/DL (0.70-1.30); GLOMERULAR FILTRATION RATE > 60.0 (>56); GLUCOSE, FASTING 92 MG/DL (70-100); LIPASE 108 U/L (73-393); POTASSIUM SERUM 4.3 MEQ/L (3.5-5.1); SODIUM LEVEL 136 MEQ/L (136-145); TOTAL PROTEIN 7.9 GM/DL (6.4-8.2)
[2019-05-11] MEDS ORDERED: ZOFR4TAB16 PO (14:43)
[2019-05-11 15:24] VITALS: BP 135/77
== END 2019-05-11 15:26 | disposition home or self-care (01) ==
LOC: M ED 12:17
DX: A08.4 Viral intestinal infection, unspecified (principal); J44.9 Chronic obstructive pulmonary disease, unspecified; I51.9 Heart disease, unspecified; F17.200 Nicotine dependence, unspecified, uncomplicated; Z79.51 Long term (current) use of inhaled steroids; Z79.82 Long term (current) use of aspirin; Z79.899 Other long term (current) drug therapy; Z91.013 Allergy to seafood; Z91.018 Allergy to other foods; Z91.030 Bee allergy status
CPT/HCPCS: 74176; 80048; 80076; 83690; 85025; 96361; 96374; 96375; 99284; C9113; J2765

== ENCOUNTER → 2019-05-14 | Outpatient (REF) | payer OTHER ==
[~2019-05-14] MED LIST changes: +ZOFR4TAB16 PO
== END ==
LOC: M SFHCLERA 15:58
PROVIDERS: ATTEND Family Medicine
DX: R19.7 Diarrhea, unspecified (principal)

== ENCOUNTER → 2019-06-22 | Outpatient (CLI) | payer OTHER ==
[~2019-06-22] MED LIST changes: +CYCL-707 PO; -CYCL10TA PO
--- NOTE | 2019-06-23 05:11 | REP ---
Clinical: Dizziness and lightheadedness multiple risk factors . Technique: Mata scale and color Doppler evaluation using linear high frequency transducer Findings: Two-dimensional mata scale and color images demonstrate minimal intimal thickening with laminar flow and no appreciable narrowing. Color Doppler interrogation demonstrates normal arterial wave patterns and velocities with no significant spectral broadening. Normal flow direction is appreciated in the bilateral vertebral arteries. RIGHT (cm/s) LEFT (cm/s) ICA peak systolic velocity 76.9 78.9 ICA diastolic velocity 19.7 25.2 ECA peak systolic velocity 100.0 109.0 CCA peak systolic velocity 119.0 112.0 ICA/CCA ratio 0.64 0.70 Impression: No hemodynamically significant areas of narrowing or stenosis appreciated. Based on set standards narrowing falls within the normal/less than 50% range. Electronically Signed by Alvarez Hart MD 06/23/2019 05:02 A
== END ==
LOC: M RAD 08:38
PROVIDERS: ATTEND Family Medicine
DX: R42 Dizziness and giddiness (principal)

== ENCOUNTER 2019-07-04 16:04 | Emergency (ER) | payer OTHER ==
[~2019-07-04] VITALS: Ht 182.9 cm; Wt 80.9 kg
[2019-07-04] MEDS ORDERED: CYCL-707 (16:24)
[2019-07-04] MEDS ORDERED: FAMOTIDINE IV BAG 20 MG in IV 1 EA IV ONE (16:45)
[2019-07-04] MEDS ORDERED: EPIP0.3I2 IM (17:52)
[2019-07-04] MEDS ORDERED: BENA25CA4 PO (17:53)
[2019-07-04] MEDS ORDERED: PEPC1TAB5 PO (17:54)
[2019-07-04 18:04] VITALS: BP 112/61
== END 2019-07-04 18:23 | disposition home or self-care (01) ==
LOC: EDBD 16:04 → M ED 16:04
DX: T63.461A Toxic effect of venom of wasps, accidental (unintentional), initial encounter (principal); Y92.89 Other specified places as the place of occurrence of the external cause; R42 Dizziness and giddiness; R20.2 Paresthesia of skin; I25.10 Atherosclerotic heart disease of native coronary artery without angina pectoris; I25.2 Old myocardial infarction; E78.9 Disorder of lipoprotein metabolism, unspecified; I50.9 Heart failure, unspecified; G47.30 Sleep apnea, unspecified; F17.200 Nicotine dependence, unspecified, uncomplicated; Z91.030 Bee allergy status; Z91.018 Allergy to other foods; Z88.5 Allergy status to narcotic agent; Z88.6 Allergy status to analgesic agent; Z88.8 Allergy status to other drugs, medicaments and biological substances; Z88.1 Allergy status to other antibiotic agents; Z88.2 Allergy status to sulfonamides; Z91.013 Allergy to seafood; Z79.899 Other long term (current) drug therapy; Z79.82 Long term (current) use of aspirin

== ENCOUNTER 2019-09-05 22:38 | Emergency (ER) | payer OTHER ==
[~2019-09-05] VITALS: Ht 182.9 cm; Wt 80.9 kg
[~2019-09-05 22:38] MED LIST changes: -ASPI81TA85 PO; +ASPI81TA86 PO; +BENA25CA4 PO; +CYCL-707; +EPIP0.3I2 IM; +PEPC1TAB5 PO
[2019-09-05 23:11] LABS: BASO # 0.1 10^3/uL (0.0-0.2); BASO % 0.6 % (0.0-1.0); EOS # 0.2 10^3/uL (0.0-0.5); EOS % 1.2 % (0.0-3.0); HEMATOCRIT 45.3 % (42.0-52.0); HEMOGLOBIN 14.7 g/dl (13.5-17.5); LYMPH # 3.2 10^3/uL (1.5-5.0); LYMPH % 20.1 % (24.0-44.0); MEAN CORPUSCULAR HEMOGLOBIN 26.2 pg (27.0-33.0); MEAN CORPUSCULAR HGB CONC 32.5 g/dl (32.0-36.5); MEAN CORPUSCULAR VOLUME 80.6 fl (80.0-96.0); MONO # 0.8 10^3/uL (0.0-0.8); MONO % 4.9 % (0.0-5.0); NEUTROPHILS # 11.7 10^3/uL (1.5-8.5); NEUTROPHILS % 72.8 % (36.0-66.0); PLATELET COUNT, AUTOMATED 271 10^3/uL (150-450); RED BLOOD COUNT 5.62 10^6/uL (4.30-6.10); VENOUS BASE EXCESS 1.1 (-2.0-2.0); VENOUS HCO3 24.3 MEQ/L (23.0-27.0); VENOUS PARTIAL PRESSURE CO2 34.7 mmHg (38.0-50.0); VENOUS PARTIAL PRESSURE O2 158.8 mmHg (30.0-50.0); VENOUS PH 7.464 UNITS (7.330-7.430); VENOUS STANDARD HCO3 25.5 MEQ/L; VENOUS TOTAL CO2 25.4 MEQ/L (24.0-28.0); WHITE BLOOD COUNT 16.1 10^3/uL (4.0-10.0)
[2019-09-05] MEDS ORDERED: NAPROXEN 250 MG TAB PO ONE (23:15)
[2019-09-06 00:04] VITALS: BP 108/63
--- NOTE | 2019-09-06 08:30 | ECGEPIP ---
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
--- NOTE | 2019-09-06 08:42 | REP ---
REASON: Cough and dyspnea. COMPARISON: 11/06/2018 The technique utilized in obtaining the radiograph has magnified the cardiac silhouette and accentuated the interstitial markings. Once again, there is evidence of basilar fibrotic change status quo. Cardiomediastinal silhouette is unchanged. The heart is not enlarged. No acute patchy parenchymal opacities or pleural effusions have developed. There is no change in the osseous structures. IMPRESSION: Stable appearing chronic changes. Correlate clinically to rule out the possibility of acute disease superimposed upon chronic change. Electronically Signed by Ander Nguyen DO 09/06/2019 01:13 P
== END 2019-09-06 00:06 | disposition home or self-care (01) ==
LOC: M ED 22:38
DX: S29.012A Strain of muscle and tendon of back wall of thorax, initial encounter (principal); X58.XXXA Exposure to other specified factors, initial encounter; Y92.89 Other specified places as the place of occurrence of the external cause; R06.02 Shortness of breath; J44.9 Chronic obstructive pulmonary disease, unspecified; J45.909 Unspecified asthma, uncomplicated; E78.5 Hyperlipidemia, unspecified; M06.9 Rheumatoid arthritis, unspecified; I25.2 Old myocardial infarction; Z79.899 Other long term (current) drug therapy; Z79.82 Long term (current) use of aspirin; Z88.1 Allergy status to other antibiotic agents; Z88.5 Allergy status to narcotic agent; Z88.8 Allergy status to other drugs, medicaments and biological substances; Z91.018 Allergy to other foods; Z91.030 Bee allergy status; F17.210 Nicotine dependence, cigarettes, uncomplicated

== ENCOUNTER 2019-10-18 10:41 | Emergency (ER) | payer OTHER | END 2019-10-18 12:21 | disposition left against medical advice (07) | LOC: M ED 10:41 | DX: S09.90XA Unspecified injury of head, initial encounter (principal); Z53.21 Procedure and treatment not carried out due to patient leaving prior to being seen by health care provider; W19.XXXA Unspecified fall, initial encounter; Y92.9 Unspecified place or not applicable; Y93.89 Activity, other specified; Y99.9 Unspecified external cause status; I25.10 Atherosclerotic heart disease of native coronary artery without angina pectoris; J44.9 Chronic obstructive pulmonary disease, unspecified; F17.200 Nicotine dependence, unspecified, uncomplicated; Z79.899 Other long term (current) drug therapy; Z88.8 Allergy status to other drugs, medicaments and biological substances; Z88.6 Allergy status to analgesic agent; Z88.5 Allergy status to narcotic agent; Z91.013 Allergy to seafood ==

== ENCOUNTER → 2019-11-24 | Outpatient (CLI) | payer OTHER ==
[2019-11-24 09:01] LABS: HEMATOCRIT 46.8 % (42.0-52.0); HEMOGLOBIN 15.2 g/dl (13.5-17.5); MEAN CORPUSCULAR HEMOGLOBIN 26.6 pg (27.0-33.0); MEAN CORPUSCULAR HGB CONC 32.5 g/dl (32.0-36.5); MEAN CORPUSCULAR VOLUME 81.8 fl (80.0-96.0); PLATELET COUNT, AUTOMATED 261 10^3/uL (150-450); RED BLOOD COUNT 5.72 10^6/uL (4.30-6.10); WHITE BLOOD COUNT 9.7 10^3/uL (4.0-10.0)
[2019-11-24 09:28] LABS: BLOOD UREA NITROGEN 12 MG/DL (7-18); CARBON DIOXIDE LEVEL 25 MEQ/L (21-32); CHLORIDE LEVEL 109 MEQ/L (98-107); CHOLESTEROL LEVEL 195 MG/DL (<200); CHOLESTEROL RISK RATIO 4.333 (<5); GLOMERULAR FILTRATION RATE > 60.0 (>56); GLUCOSE, FASTING 87 MG/DL (70-100); HDL CHOLESTEROL 45 MG/DL (>40); LDL CHOLESTEROL 137 MG/DL (<100); NON-HDL-C 150 MG/DL; POTASSIUM SERUM 4.4 MEQ/L (3.5-5.1); SODIUM LEVEL 139 MEQ/L (136-145); TRIGLYCERIDES LEVEL 64 MG/DL (<150)
== END ==
LOC: M LAB 08:32
PROVIDERS: ATTEND Physician Assistant
DX: I25.10 Atherosclerotic heart disease of native coronary artery without angina pectoris (principal)

== ENCOUNTER 2020-06-26 17:47 | Emergency (ER) | payer OTHER ==
[~2020-06-26] VITALS: Ht 182.9 cm; Wt 84.1 kg
[~2020-06-26 17:47] MED LIST changes: +ASPI-569 PO; -ASPI81TAEC PO
[2020-06-26] MEDS ORDERED: MORPHINE 4 MG/ML 1ML VIAL/SYRINGE (J2270) IM ONE (20:00)
[2020-06-26] MEDS ORDERED: METH-1164 PO (20:06)
[2020-06-26 20:55] VITALS: BP 135/79
== END 2020-06-26 21:22 | disposition home or self-care (01) ==
LOC: M ED 17:47
DX: S43.92XA Sprain of unspecified parts of left shoulder girdle, initial encounter (principal); X58.XXXA Exposure to other specified factors, initial encounter; Y92.009 Unspecified place in unspecified non-institutional (private) residence as the place of occurrence of the external cause; Y93.9 Activity, unspecified; Y99.9 Unspecified external cause status; I48.91 Unspecified atrial fibrillation; I25.10 Atherosclerotic heart disease of native coronary artery without angina pectoris; I50.9 Heart failure, unspecified; I25.2 Old myocardial infarction; Z86.73 Personal history of transient ischemic attack (TIA), and cerebral infarction without residual deficits; J44.9 Chronic obstructive pulmonary disease, unspecified; J45.909 Unspecified asthma, uncomplicated; Z98.61 Coronary angioplasty status; F17.200 Nicotine dependence, unspecified, uncomplicated; Z79.82 Long term (current) use of aspirin; Z79.899 Other long term (current) drug therapy; Z91.030 Bee allergy status; Z91.013 Allergy to seafood; Z88.6 Allergy status to analgesic agent; Z88.1 Allergy status to other antibiotic agents; Z91.018 Allergy to other foods; Z88.5 Allergy status to narcotic agent; Z88.8 Allergy status to other drugs, medicaments and biological substances; Z91.02 Food additives allergy status
CPT/HCPCS: 99283; J2270

== ENCOUNTER → 2020-07-04 | Outpatient (CLI) | payer OTHER ==
[~2020-07-04] MED LIST changes: +METH-1164 PO
--- NOTE | 2020-07-04 16:19 | REP ---
INDICATION: ROTATR- CUFF TEAR. COMPARISON: None. TECHNIQUE: Internal rotation, external rotation, axillary and Y-view the left shoulder. FINDINGS: Mild cortical irregularity at the acromioclavicular joint noted. The glenohumeral joint is normal. The subacromial space is normal. No periarticular calcifications or loose bodies. No acute fracture or dislocation. IMPRESSION: Mild essentially age-related degenerative changes primarily at the AC joint. <Electronically signed by Alvarez Hart > 07/04/20 [id number]
== END ==
LOC: M SOG 07:55
PROVIDERS: ATTEND Orthopaedic Surgery Sports Medicine
DX: M19.012 Primary osteoarthritis, left shoulder (principal)

== ENCOUNTER → 2020-07-17 | Outpatient (CLI) | payer OTHER ==
--- NOTE | 2020-07-17 16:59 | REP ---
INDICATION: LUNG SCREENING. COMPARISON: Multiple the latest 11/06/2018 TECHNIQUE: Axial noncontrast images from the thoracic inlet to the upper abdomen using low-dose lung screening technique (LDCT). As per the protocol only lung window images were sent to the read station for interpretation. FINDINGS: Chronic changes are again seen throughout the lung ross. These are seemingly improved but at least in part likely due to better inspiration on today's exam. Tiny parenchymal bulla are again noted with mild lung field hyperexpansion and tiny apical pleural blebs with biapical pleuroparenchymal scarring. The nodular density seen previously in the right infrahilar region is completely stable. There is a stable nodule in the anterior segment of the left upper lobe. There is cylindrical bronchiectasis. No definite new abnormal nodules, masses, or opacities have developed. IMPRESSION: Lung rads category [address] examination of the chest. <Electronically signed by Ander Nguyen > 07/17/20 [id number]
== END ==
LOC: M RAD 10:19
PROVIDERS: ATTEND Family Medicine
DX: Z12.2 Encounter for screening for malignant neoplasm of respiratory organs (principal)

== ENCOUNTER → 2020-07-19 | Outpatient (CLI) | payer OTHER ==
--- NOTE | 2020-07-19 14:12 | REP ---
INDICATION: Dx M75.112 Incomplete rotator cuff tear/rupture of shoulder. COMPARISON: MRI 07/29/2013, radiographs 07/04/2020. TECHNIQUE: Coronal oblique T1, T2 fat sat, sagittal oblique T2 fat sat, axial T2 fat sat, gradient echo. FINDINGS: Rotator cuff: Once again there is a full-thickness partial tear anteriorly of the supraspinatus tendon, as seen on prior study. There is mild diffuse tendinopathy/tendinitis of the supraspinatus and infraspinatus tendons. Acromioclavicular joint: There are moderate hypertrophic degenerative changes of the acromioclavicular joint. Acromion: Type 2 Biceps Tendon: In bicipital groove, with mild surrounding fluid. Hill Sach's deformity: None. Deltoid muscle: No abnormal signal. Biceps labral complex: There may be some degree of fraying of the biceps labral complex. Labrum: There is a tear of the inferior labrum, predominantly anteriorly. Cartilage: No defects. Bone marrow: There is no bone marrow edema or occult fracture. A few subcentimeter subcortical cysts are seen in the superolateral humeral head. Joint fluid: No effusion. IMPRESSION: Partial full-thickness tear anterior supraspinatus tendon. Moderate hypertrophic degenerative changes acromioclavicular joint with type 2 acromion. Possible fraying of the biceps labral complex. Inferior labral tear predominantly anteriorly. <Electronically signed by Juan Mata > 07/19/20 [id number]
== END ==
LOC: M PLARAD 11:43
PROVIDERS: ATTEND Orthopaedic Surgery Sports Medicine
DX: M75.112 Incomplete rotator cuff tear or rupture of left shoulder, not specified as traumatic (principal)

== ENCOUNTER → 2020-10-03 | Outpatient (CLI) | payer OTHER ==
[~2020-10-03] MED LIST changes: +ECOT81TA5 PO
[2020-10-03 14:38] LABS: BASO # 0.1 10^3/uL (0.0-0.2); BASO % 0.6 % (0.0-1.0); EOS # 0.2 10^3/uL (0.0-0.5); EOS % 1.5 % (0.0-3.0); HEMATOCRIT 45.6 % (42.0-52.0); LYMPH # 2.5 10^3/uL (1.5-5.0); LYMPH % 19.3 % (24.0-44.0); MEAN CORPUSCULAR HGB CONC 32.9 g/dl (32.0-36.5); MEAN CORPUSCULAR VOLUME 82.2 fl (80.0-96.0); MONO # 0.5 10^3/uL (0.0-0.8); MONO % 4.1 % (2.0-8.0); NEUTROPHILS # 9.7 10^3/uL (1.5-8.5); PLATELET COUNT, AUTOMATED 250 10^3/uL (150-450); RED BLOOD COUNT 5.55 10^6/uL (4.30-6.10); WHITE BLOOD COUNT 13.1 10^3/uL (4.0-10.0)
[2020-10-03 16:18] LABS: ALBUMIN 3.6 GM/DL (3.2-5.2); ALT/SGPT 23 U/L (12-78); BILIRUBIN,TOTAL 0.6 MG/DL (0.2-1.0); BLOOD UREA NITROGEN 11 MG/DL (7-18); CALCIUM LEVEL 8.8 MG/DL (8.5-10.1); CARBON DIOXIDE LEVEL 23 MEQ/L (21-32); CHLORIDE LEVEL 106 MEQ/L (98-107); CHOLESTEROL LEVEL 206 MG/DL (<200); CREATININE FOR GFR 0.89 MG/DL (0.70-1.30); FREE T4 1.19 NG/DL (0.76-1.46); GLOMERULAR FILTRATION RATE > 60.0 (>56); GLUCOSE, FASTING 120 MG/DL (70-100); HDL CHOLESTEROL 43 MG/DL (>40); LDL CHOLESTEROL 145 MG/DL (<100); NON-HDL-C 163 MG/DL; SODIUM LEVEL 139 MEQ/L (136-145); TOTAL PROTEIN 7.7 GM/DL (6.4-8.2); TRIGLYCERIDES LEVEL 92 MG/DL (<150)
[2020-10-03 16:23] LABS: VITAMIN B12 LEVEL 441 PG/ML
[2020-10-03 16:24] LABS: FOLATE 9.2 NG/ML
== END ==
LOC: M LAB 14:10
PROVIDERS: ATTEND Student in an Organized Health Care Education/Training Program
DX: I25.10 Atherosclerotic heart disease of native coronary artery without angina pectoris (principal); R53.83 Other fatigue; E78.5 Hyperlipidemia, unspecified

== ENCOUNTER → 2020-11-02 | Outpatient (CLI) | payer OTHER | LOC: M LABSMTC 09:53 | PROVIDERS: ATTEND Anesthesiology | DX: Z01.812 Encounter for preprocedural laboratory examination (principal); Z20.822 Contact with and (suspected) exposure to COVID-19 ==

== ENCOUNTER 2020-11-08 09:41 | Day surgery (SDC) | payer OTHER ==
[~2020-11-08] VITALS: Ht 182.9 cm; Wt 77.5 kg
[~2020-11-08 09:41] MED LIST changes: +LIDOCAINE 1% MDV 20ML VIAL SQ PRN; +LIDOCAINE 2% 100MG/5ML SDV (FOR ANES.) As Ordered ONE; +LR 1,000 ML IV ONE; +MIDAZOLAM INJ 2MG/2ML VIAL (J2250 PER 1MG) As Ordered ONE; +ROCURONIUM BROMIDE 50 MG/5 ML VIAL As Ordered ONE; +UNRESOLVED CLARIFICATION ENTRY XX SCH; +fentaNYL 250 MCG/5 ML INJECTION (J3010) As Ordered ONE; +propofoL 200 MG/20 ML VIAL As Ordered ONE
[2020-11-08] MEDS ORDERED: EPINEPHrine 1MG/ML INJ 30ML MD-VIAL As Ordered ONE (12:00)
[2020-11-08] MEDS ORDERED: CLINDAMYCIN 600 MG/50 ML PREMIX BAG As Ordered ONE ×2 (12:20→12:29)
[2020-11-08] MEDS ORDERED: SUCCINYLCHOLINE 100 MG/5 ML SYRINGE (J0330) As Ordered ONE (12:49)
[2020-11-08] MEDS ORDERED: PHENYLephrine 500MCG 5ML (100MCG/ML) SYRINGE As Ordered ONE (12:49)
[2020-11-08] MEDS ORDERED: KETOROLAC 60MG 2ML VIAL As Ordered ONE (13:38)
[2020-11-08] MEDS ORDERED: ONDANSETRON 4MG/2ML VIAL As Ordered ONE (13:38)
[2020-11-08] MEDS ORDERED: HYDROmorphone HCL 2 MG/ML 1ML VIAL (J1170) As Ordered ONE (13:38)
[2020-11-08] MEDS ORDERED: ROCURONIUM BROMIDE 50 MG/5 ML VIAL As Ordered ONE (13:40)
[2020-11-08] MEDS ORDERED: SUGAMMADEX SODIUM 500 MG/5 ML VIAL (BRIDION) As Ordered ONE (13:41)
--- NOTE | 2020-11-08 14:19 | ROOPDOC ---
[facility] Report Of Operation Report of Operation DATE OF PROCEDURE: 11/08/20 PREPROCEDURE DIAGNOSES: Left shoulder rotator cuff tear, AC joint arthrosis, impingement, possible SLAP tear. POSTPROCEDURE DIAGNOSES: Left shoulder rotator cuff tear, AC joint arthrosis, impingement, type I SLAP tear . PROCEDURE PERFORMED: Left shoulder arthroscopy, subacromial decompression, distal clavicle excision, rotator cuff repair, debridement type I SLAP tear. SURGEON: Dr. Reese Wilburn MD RELIGIOUS ASSISTANT: None ANESTHESIA: General anesthesia Dr. Davis. ESTIMATED BLOOD LOSS: Approximately 50 mL. COMPLICATIONS: None. REMARKS: None. FINDINGS: Small anterior leading edge 5 x 5 mm near full-thickness partial width supraspinatus tear type I SLAP tear AC joint arthrosis SPECIMENS REMOVED: None PROCEDURE NOTE: This 55-year-old man failed conservative management for his shoulder pain. We discussed the pros and cons risk benefits of going ahead with shoulder surgery. I marked the left upper extremity. He had no further questions. He wished to proceed.. DESCRIPTION OF PROCEDURE: Patient was brought to the operating room theater. They are ministered 900 mg of IV clindamycin past history of Keflex allergy as well as the dose per the pharmacy. Patient was placed lateral decubitus. All bony prominences appropriately padded. SCDs used on legs. Axillary roll was used. Chlorhexidine-based prep solution was used, allowed to thoroughly dry after prepping the left upper extremity. 10 pounds inline traction with the arm in 45 degrees abduction was used. Preoperative timeout performed to confirm the site patient and surgery. Began by making a posterior arthroscopy portal inserting the arthroscope into the intra-articular portion of the shoulder. I made inside-out spinal needle localization through the rotator interval anterior portal. Perform thorough diagnostic arthroscopy. Cartilage on the glenoid and the humeral head appeared normal. There appeared to be some thinning of the anterior leading edge of the supraspinatus tendon from the undersurface. The biceps root appeared intact stable and solid no synovitis or longitudinal tearing of the biceps type I SLAP tear with fraying of the superior labrum this was gently debrided, and so el ected not to perform biceps tenodesis given these findings. Infraspinatus and teres minor appeared normal normal bare area normal axillary recess no loose bodies. I next inserted the arthroscope in the subacromial space made a lateral portal. Cannulas were used. I performed a thorough subacromial bursectomy for moderate amount of bursitis with some inflammation mostly at the acromioclavicular joint. I performed a distal clavicle excision for full burs width approximately 5 mm of the distal end of clavicle. I confirmed a complete resection by inserting the scope directly anteriorly into the acromioclavicular joint. I also perf ormed subacromial decompression down to flat margins the undersurface of the anterolateral acromion, releasing the CA ligament with ablator. I then identified the area of the thinning of the anterior margin supraspinatus. This was near full-thickness over 50% tendon surface thickness partial width approximately 5 x 5 mm area so the tear was completed. I then used the Arthrex power pick to trephinate at the area of the greater tuberosity for planned area of rotator cuff repair. This was a small tear therefore I used #2 FiberWire in an inverted horizontal mattress fashion to form 2 suture limbs which I then inserted into a Arthrex 4.75 mm swivel lock anchor inserted laterally for knotless fixation which appropriately reduce the tendon and solid tight repair minimal tension. I took final arthroscopy pictures saved them onto the system. Wounds were cleaned with wet and dry dressing followed application of Steri- Strips Adaptic 4 x 8 gauze abdominal pad dressings and cloth tape and a sling. Patient woken up with a general anesthetic transferred off the operating room table taken postanesthetic care unit in stable condition. All sponge needle instrument counts were correct no complications estimated blood loss 50 cc. Plan to the patient discharged home according to day surgery criteria. They have elected to not have narcotics they will try their usual pain regime postoperatively naproxen and I counselled on NSAID risks, bleeding. Also do have a Tylenol allergy I have ordered morphine in the immediate postoperative period for pain management. He also elected not to receive a preoperative block this was offered to them. Start immediate pendulum exercises as well as hand wrist and elbow exercises follow-up in the office in 2 weeks time change dressing postoperative day 1, 2, and as needed and avoid showering over top of the first 14 days. Postoperative wound instructions were given. It was recommended to keep the wound clean and dry. Dressing changes as needed. It was reinforced with the patient that they should call us or be seen immediately for redness, drainage, or fever. REESE WILBURN MD Nov 08, 2020 14:19
[2020-11-08] MEDS ORDERED: fentaNYL 100 MCG/2 ML INJECTION (J3010) IV PRN (14:25)
[2020-11-08] MEDS ORDERED: LR 1,000 ML IV SCH ×2 (14:25→14:40)
[2020-11-08] MEDS ORDERED: METOCLOPRAMIDE INJ 10MG/2ML VIAL (J2765 PER 1) IV PRN (14:25)
[2020-11-08] MEDS ORDERED: ONDANSETRON 4MG/2ML VIAL IV PRN ×2 (14:25→14:40)
[2020-11-08] MEDS ORDERED: MORPHINE 2 MG/ML 1ML VIAL (J2270) IV PRN (14:35)
[2020-11-08] MEDS ORDERED: oxyCODONE 5MG TAB PO PRN (15:15)
[2020-11-08 16:55] VITALS: BP 114/76
== END 2020-11-08 17:21 | disposition home or self-care (01) ==
LOC: M SDC 09:41
PROVIDERS: ATTEND Orthopaedic Surgery Sports Medicine
DX: M75.112 Incomplete rotator cuff tear or rupture of left shoulder, not specified as traumatic (principal); M19.012 Primary osteoarthritis, left shoulder; M75.42 Impingement syndrome of left shoulder; S43.432A Superior glenoid labrum lesion of left shoulder, initial encounter; X58.XXXA Exposure to other specified factors, initial encounter; Y92.89 Other specified places as the place of occurrence of the external cause; I20.9 Angina pectoris, unspecified; I48.91 Unspecified atrial fibrillation; R07.9 Chest pain, unspecified; I25.2 Old myocardial infarction; E78.5 Hyperlipidemia, unspecified; R55 Syncope and collapse; R12 Heartburn; I70.0 Atherosclerosis of aorta; M06.9 Rheumatoid arthritis, unspecified; J44.9 Chronic obstructive pulmonary disease, unspecified; J45.909 Unspecified asthma, uncomplicated; R06.83 Snoring; G47.9 Sleep disorder, unspecified; F17.210 Nicotine dependence, cigarettes, uncomplicated; Z86.73 Personal history of transient ischemic attack (TIA), and cerebral infarction without residual deficits; Z88.8 Allergy status to other drugs, medicaments and biological substances; Z88.1 Allergy status to other antibiotic agents; Z88.5 Allergy status to narcotic agent; Z88.2 Allergy status to sulfonamides; Z91.030 Bee allergy status; Z91.013 Allergy to seafood; Z91.018 Allergy to other foods; Z79.899 Other long term (current) drug therapy; Z79.82 Long term (current) use of aspirin; Z79.1 Long term (current) use of non-steroidal anti-inflammatories (NSAID)
CPT/HCPCS: 29822; 29824; 29826; 29827; C1713; J0330; J1170; J1885; J2250; J2370; J2405; J3010

== ENCOUNTER → 2021-01-30 | Outpatient (CLI) | payer OTHER ==
[~2021-01-30] MED LIST changes: -LIDOCAINE 1% MDV 20ML VIAL SQ PRN; -LIDOCAINE 2% 100MG/5ML SDV (FOR ANES.) As Ordered ONE; -LR 1,000 ML IV ONE; -MIDAZOLAM INJ 2MG/2ML VIAL (J2250 PER 1MG) As Ordered ONE; -ROCURONIUM BROMIDE 50 MG/5 ML VIAL As Ordered ONE; -UNRESOLVED CLARIFICATION ENTRY XX SCH; -fentaNYL 250 MCG/5 ML INJECTION (J3010) As Ordered ONE; -propofoL 200 MG/20 ML VIAL As Ordered ONE
== END ==
LOC: M SOG 10:30
PROVIDERS: ATTEND Orthopaedic Surgery Sports Medicine
DX: Z47.89 Encounter for other orthopedic aftercare (principal)

== ENCOUNTER → 2021-05-31 | Outpatient (CLI) | payer OTHER ==
[2021-05-31 11:23] LABS: HEMOGLOBIN 15.1 g/dl (13.5-17.5); MEAN CORPUSCULAR HEMOGLOBIN 27.1 pg (27.0-33.0); MEAN CORPUSCULAR HGB CONC 33.6 g/dl (32.0-36.5); MEAN CORPUSCULAR VOLUME 80.6 fl (80.0-96.0); PLATELET COUNT, AUTOMATED 231 10^3/uL (150-450); RED BLOOD COUNT 5.58 10^6/uL (4.30-6.10); WHITE BLOOD COUNT 11.9 10^3/uL (4.0-10.0)
[2021-05-31 12:02] LABS: ALBUMIN 3.7 GM/DL (3.2-5.2); ALT/SGPT 29 U/L (12-78); BILIRUBIN,TOTAL 0.6 MG/DL (0.2-1.0); BLOOD UREA NITROGEN 18 MG/DL (7-18); CARBON DIOXIDE LEVEL 26 MEQ/L (21-32); CHLORIDE LEVEL 107 MEQ/L (98-107); CHOLESTEROL LEVEL 205 MG/DL (<200); CHOLESTEROL RISK RATIO 5.125 (<5); CREATININE FOR GFR 0.86 MG/DL (0.70-1.30); FREE T4 1.19 NG/DL (0.76-1.46); GLOMERULAR FILTRATION RATE > 60.0 (>56); GLUCOSE, FASTING 93 MG/DL (70-100); HDL CHOLESTEROL 40 MG/DL (>40); LDL CHOLESTEROL 144 MG/DL (<100); MAGNESIUM LEVEL 2.2 MG/DL (1.8-2.4); NON-HDL-C 165 MG/DL; POTASSIUM SERUM 4.4 MEQ/L (3.5-5.1); SODIUM LEVEL 137 MEQ/L (136-145); TOTAL PROTEIN 7.7 GM/DL (6.4-8.2); TRIGLYCERIDES LEVEL 105 MG/DL (<150)
== END ==
LOC: M RAD 10:56
PROVIDERS: ATTEND Physician Assistant
DX: R55 Syncope and collapse (principal); I25.10 Atherosclerotic heart disease of native coronary artery without angina pectoris; R00.2 Palpitations

== ENCOUNTER → 2021-09-06 | Outpatient (CLI) | payer OTHER | LOC: M RAD 07:45 | PROVIDERS: ATTEND Student in an Organized Health Care Education/Training Program | DX: F17.200 Nicotine dependence, unspecified, uncomplicated (principal) ==

== ENCOUNTER 2021-11-21 21:08 | Emergency (ER) | payer OTHER ==
[~2021-11-21 21:08] MED LIST changes: +ALBU6.7H6 INH; -PROV108A INH
[2021-11-21 22:37] LABS: BASO # 0.1 10^3/uL (0.0-0.2); BASO % 0.9 % (0.0-1.0); EOS # 0.2 10^3/uL (0.0-0.5); EOS % 1.9 % (0.0-3.0); HEMATOCRIT 46.3 % (42.0-52.0); HEMOGLOBIN 15.3 g/dl (13.5-17.5); LYMPH # 3.5 10^3/uL (1.5-5.0); LYMPH % 28.3 % (24.0-44.0); MEAN CORPUSCULAR HEMOGLOBIN 27.2 pg (27.0-33.0); MEAN CORPUSCULAR VOLUME 82.2 fl (80.0-96.0); MONO # 0.9 10^3/uL (0.0-0.8); MONO % 6.9 % (2.0-8.0); NEUTROPHILS # 7.7 10^3/uL (1.5-8.5); NEUTROPHILS % 61.8 % (36.0-66.0); PLATELET COUNT, AUTOMATED 284 10^3/uL (150-450); RED BLOOD COUNT 5.63 10^6/uL (4.30-6.10); WHITE BLOOD COUNT 12.4 10^3/uL (4.0-10.0)
[2021-11-21 22:50] LABS: INR 0.86; PROTHROMBIN TIME 12.1 SECONDS (12.7-14.5)
[2021-11-21 22:51] LABS: PARTIAL THROMBOPLASTIN TIME 31.3 SECONDS (25.9-37.0)
[2021-11-21 22:56] VITALS: BP 125/72
[2021-11-21 23:22] LABS: ALBUMIN 3.5 GM/DL (3.2-5.2); ALT/SGPT 23 U/L (12-78); BILIRUBIN,DIRECT 0.1 MG/DL (0.0-0.2); BILIRUBIN,TOTAL 0.5 MG/DL (0.2-1.0); BLOOD UREA NITROGEN 18 MG/DL (7-18); CARBON DIOXIDE LEVEL 26 MEQ/L (21-32); CHLORIDE LEVEL 103 MEQ/L (98-107); CREATININE FOR GFR 0.95 MG/DL (0.70-1.30); GLOMERULAR FILTRATION RATE > 60.0 (>56); GLUCOSE, FASTING 94 MG/DL (70-100); SODIUM LEVEL 134 MEQ/L (136-145); TOTAL PROTEIN 7.8 GM/DL (6.4-8.2)
[2021-11-21 23:50] LABS: CK-MB VALUE MASS < 1.0 NG/ML (<3.6); CPK CREATINE PHOSPHOKINASE 106 U/L (39-308); MB/CK RELATIVE INDEX 0.94 (< OR =4)
== END 2021-11-22 | disposition home or self-care (01) ==
LOC: M ED 21:08 → EDBD 21:08 → M ED 11-22
DX: R55 Syncope and collapse (principal); R42 Dizziness and giddiness; I51.9 Heart disease, unspecified; Z86.73 Personal history of transient ischemic attack (TIA), and cerebral infarction without residual deficits; J44.9 Chronic obstructive pulmonary disease, unspecified; R56.9 Unspecified convulsions; F17.200 Nicotine dependence, unspecified, uncomplicated; Z79.82 Long term (current) use of aspirin; Z79.899 Other long term (current) drug therapy; Z88.8 Allergy status to other drugs, medicaments and biological substances; Z88.6 Allergy status to analgesic agent; Z88.1 Allergy status to other antibiotic agents; Z88.5 Allergy status to narcotic agent; Z91.018 Allergy to other foods; Z91.013 Allergy to seafood

== ENCOUNTER 2022-01-04 23:30 | Inpatient (IN) | payer OTHER ==
[~2022-01-04] VITALS: Ht 182.9 cm; Wt 82.9 kg
[2022-01-04] MEDS ORDERED: NS 1,000 ML IV ONE (23:45)
[2022-01-05] VITALS (21 sets, daily range): BP systolic 87–123; BP diastolic 50–71
[2022-01-05 00:14] LABS: BASO # 0.1 10^3/uL (0.0-0.2); BASO % 0.8 % (0.0-1.0); EOS # 0.3 10^3/uL (0.0-0.5); EOS % 2.4 % (0.0-3.0); HEMATOCRIT 46.4 % (42.0-52.0); HEMOGLOBIN 14.5 g/dl (13.5-17.5); LYMPH # 4.4 10^3/uL (1.5-5.0); LYMPH % 36.4 % (24.0-44.0); MEAN CORPUSCULAR HEMOGLOBIN 27.1 pg (27.0-33.0); MEAN CORPUSCULAR HGB CONC 31.3 g/dl (32.0-36.5); MEAN CORPUSCULAR VOLUME 86.6 fl (80.0-96.0); MONO # 0.7 10^3/uL (0.0-0.8); MONO % 5.5 % (2.0-8.0); NEUTROPHILS # 6.5 10^3/uL (1.5-8.5); PLATELET COUNT, AUTOMATED 260 10^3/uL (150-450); RED BLOOD COUNT 5.36 10^6/uL (4.30-6.10); WHITE BLOOD COUNT 12.1 10^3/uL (4.0-10.0)
[2022-01-05] MEDS ORDERED: NS 2,480 ML in IV 1 EA IV ONE (00:35)
[2022-01-05 00:38] LABS: RSV AMPLIFICATION NEGATIVE (NEGATIVE)
[2022-01-05 00:38] LABS: AMPHETAMINES LEVEL URINE NEGATIVE (NEGATIVE); BARBITURATES URINE NEGATIVE (NEGATIVE); BENZODIAZEPINES URINE NEGATIVE (NEGATIVE); CANNABINOIDS URINE NEGATIVE (NEGATIVE); COCAINE METABOLITE URINE NEGATIVE (NEGATIVE); METHADONE URINE NEGATIVE (NEGATIVE); OPIATES URINE NEGATIVE (NEGATIVE); PHENCYCLIDINE URINE NEGATIVE (NEGATIVE)
[2022-01-05] MEDS ORDERED: ETOMIDATE INJ 20MG/10ML VIAL IV STA (00:47)
[2022-01-05 00:49] LABS: ACETAMINOPHEN LEVEL < 2.0 UG/ML (10.0-30.0); ALBUMIN 3.6 GM/DL (3.2-5.2); ALT/SGPT 29 U/L (12-78); BILIRUBIN,DIRECT 0.1 MG/DL (0.0-0.2); BILIRUBIN,TOTAL 0.3 MG/DL (0.2-1.0); BLOOD UREA NITROGEN 12 MG/DL (7-18); CALCIUM LEVEL 8.2 MG/DL (8.5-10.1); CARBON DIOXIDE LEVEL 17 MEQ/L (21-32); CHLORIDE LEVEL 102 MEQ/L (98-107); CK-MB VALUE MASS 2.2 NG/ML (<3.6); CREATININE FOR GFR 1.08 MG/DL (0.70-1.30); ETHYL ALCOHOL (ETHANOL) 0.267 % (0.000-0.010); GLOMERULAR FILTRATION RATE > 60.0 (>56); GLUCOSE, FASTING 99 MG/DL (70-100); MB/CK RELATIVE INDEX 0.75 (< OR =4); POTASSIUM SERUM 3.7 MEQ/L (3.5-5.1); SALICYLATE LEVEL 1.8 MG/DL (5.0-30.0); SODIUM LEVEL 137 MEQ/L (136-145); TOTAL PROTEIN 7.5 GM/DL (6.4-8.2)
[2022-01-05] MEDS ORDERED: ROCURONIUM BROMIDE 50 MG/5 ML VIAL IV SCH (00:50)
[2022-01-05] MEDS ORDERED: MIDAZOLAM 100MG/100ML-0.9%NACL 100 MG in IV 1 EA IV SCH ×2 (00:50→08:35)
[2022-01-05] MEDS ORDERED: PROPOFOL 1,000 MG/100 ML VIAL As Ordered ONE (01:41)
[2022-01-05] MEDS ORDERED: propofoL 1,000 MG in IV 1 EA IV SCH (01:45)
[2022-01-05] MEDS ORDERED: PIPERACILLIN/TAZOBACTAM SOD 4.5 GM in D5W MINI-BAG PLUS 50 ML IV ONE (01:45)
[2022-01-05] MEDS ORDERED: VANCOMYCIN HCL 2,000 MG in IV FLUID PLACE HOLDER 1 EA IV ONE (01:45)
[2022-01-05] MEDS ORDERED: IPRA0.00 NEB (02:03)
[2022-01-05] MEDS ORDERED: ALBU8.5H INH (02:05)
[2022-01-05] MEDS ORDERED: ADVA115A INH (02:05)
[2022-01-05] MEDS ORDERED: med rec comment (02:06)
[2022-01-05] MEDS ORDERED: HOME MED LIST COMPLETE! XX SCH (02:10)
[2022-01-05 02:39] LABS: CK-MB VALUE MASS 1.9 NG/ML (<3.6); MB/CK RELATIVE INDEX 0.72 (< OR =4)
[2022-01-05] MEDS ORDERED: SODIUM CHLORIDE 0.9% 1000ML IV ONE (02:55)
[2022-01-05] MEDS ORDERED: VANCOMYCIN HCL 750 MG, VIAL MATE ADAPTER 1 EACH in NS 250 ML IV SCH (02:55)
[2022-01-05] MEDS ORDERED: VANCOMYCIN HCL 1,000 MG, VIAL MATE ADAPTER 1 EACH in NS 250 ML IV ONE ×6 (03:00)
[2022-01-05] MEDS ORDERED: NITROGLYCERIN 0.4 MG SUBL TABLET SL PRN (03:55)
[2022-01-05] MEDS ORDERED: ALBUTEROL 90 MCG/ACT 8GM HFA INHALER INH PRN ×2 (03:55)
[2022-01-05] MEDS ORDERED: THIAMINE 100 MG TAB PO SCH (05:00)
[2022-01-05] MEDS: HEPARIN SOD (PORCINE) 5000UNITS/ML 1ML VIAL/SYRINGE SC SCH ×3 (05:05→22:22)
[2022-01-05 05:34] LABS: ABG BASE EXCESS -6.3 (-2.0-2.0); ABG O2 SATURATION 98.7 % (95.0-99.0); ABG PARTIAL PRESSURE CO2 55.7 mmHg (35.0-45.0); ABG PARTIAL PRESSURE O2 149.2 mmHg (75.0-100.0); ABG STANDARD HCO3 19.4 MEQ/L (22.0-26.0); ABG TOTAL CO2 23.7 MEQ/L (22.0-29.0)
[2022-01-05 05:36] LABS: ABG pH (ARTERIAL) 7.215 UNITS (7.350-7.450)
[2022-01-05] MEDS: NS 1,000 ML IV SCH ×2 (05:37→11:24)
[2022-01-05 05:39] LABS: PHOSPHORUS LEVEL 3.5 MG/DL (2.5-4.9)
[2022-01-05] MEDS ORDERED: THIAMINE 200MG 2ML VIAL IM SCH (07:00)
[2022-01-05] MEDS: PANTOPRAZOLE 40MG VIAL IV SCH (08:17)
[2022-01-05] MEDS: PIPERACILLIN/TAZOBACTAM SOD 3.375 GM in D5W MINI-BAG PLUS 50 ML IV SCH ×3 (08:17→20:04)
[2022-01-05] MEDS: CHLORHEXIDINE GLUCONATE 0.12 % 15ML UDC (PERIDEX ORAL RINSE) MT SCH ×2 (08:18→20:04)
[2022-01-05] MEDS: ADVAIR HFA 115/21MCG INHALER INH SCH ×2 (08:24→19:50)
[2022-01-05] MEDS ORDERED: ASPIRIN 300 MG SUPP PR SCH (09:00)
[2022-01-05] MEDS ORDERED: PRAVASTATIN 20 MG TAB PO SCH (09:00)
[2022-01-05] MEDS: IPRATROPIUM 0.5MG/ALBUTEROL 2.5MG INH SOL UD 3ML (DUONEB) NEB SCH ×3 (09:01→23:48)
[2022-01-05] MEDS ORDERED: MIDAZOLAM INJ 2MG/2ML VIAL (J2250 PER 1MG) As Ordered ONE (09:15)
[2022-01-05] MEDS: MIDAZOLAM INJ 2MG/2ML VIAL (J2250 PER 1MG) IV PRN ×2 (10:05→15:42)
[2022-01-05] MEDS: fentaNYL 100 MCG/2 ML INJECTION IV PRN ×2 (10:08→15:48)
[2022-01-05] MEDS ORDERED: ROCURONIUM BROMIDE 50 MG/5 ML VIAL ONE (10:57)
[2022-01-05] MEDS ORDERED: ETOMIDATE INJ 20MG/10ML VIAL ONE (10:57)
[2022-01-05] MEDS: LACTULOSE 20 GM/30 ML SYRUP UD NG SCH ×3 (11:10→20:04)
[2022-01-05] MEDS: propofoL 1,000 MG in IV 1 EA IV SCH ×3 (11:25→23:30)
[2022-01-05 12:17] LABS: ABG BASE EXCESS -2.3 (-2.0-2.0); ABG O2 SATURATION 93.9 % (95.0-99.0); ABG PARTIAL PRESSURE CO2 41.7 mmHg (35.0-45.0); ABG PARTIAL PRESSURE O2 72.9 mmHg (75.0-100.0); ABG STANDARD HCO3 22.5 MEQ/L (22.0-26.0); ABG TOTAL CO2 24.3 MEQ/L (22.0-29.0)
[2022-01-05 12:21] LABS: HEMATOCRIT 39.8 % (42.0-52.0); HEMOGLOBIN 12.8 g/dl (13.5-17.5); MEAN CORPUSCULAR HEMOGLOBIN 27.1 pg (27.0-33.0); MEAN CORPUSCULAR HGB CONC 32.2 g/dl (32.0-36.5); MEAN CORPUSCULAR VOLUME 84.3 fl (80.0-96.0); PLATELET COUNT, AUTOMATED 188 10^3/uL (150-450); RED BLOOD COUNT 4.72 10^6/uL (4.30-6.10); WHITE BLOOD COUNT 8.5 10^3/uL (4.0-10.0)
[2022-01-05 12:59] LABS: BLOOD UREA NITROGEN 8 MG/DL (7-18); CALCIUM LEVEL 7.7 MG/DL (8.5-10.1); CARBON DIOXIDE LEVEL 24 MEQ/L (21-32); CHLORIDE LEVEL 112 MEQ/L (98-107); CREATININE FOR GFR 0.84 MG/DL (0.70-1.30); GLOMERULAR FILTRATION RATE > 60.0 (>56); GLUCOSE, FASTING 99 MG/DL (70-100); POTASSIUM SERUM 3.9 MEQ/L (3.5-5.1); SODIUM LEVEL 143 MEQ/L (136-145)
[2022-01-05] MEDS: VANCOMYCIN HCL 1,000 MG, VIAL MATE ADAPTER 1 EACH in D5W 250 ML IV SCH (17:28)
[2022-01-06] VITALS (9 sets, daily range): BP systolic 108–140; BP diastolic 59–71
[2022-01-06] MEDS: MIDAZOLAM INJ 2MG/2ML VIAL (J2250 PER 1MG) IV PRN ×2 (01:01→03:57)
[2022-01-06] MEDS: fentaNYL 100 MCG/2 ML INJECTION IV PRN (01:16)
[2022-01-06] MEDS: PIPERACILLIN/TAZOBACTAM SOD 3.375 GM in D5W MINI-BAG PLUS 50 ML IV SCH ×2 (01:36→08:05)
[2022-01-06] MEDS: propofoL 1,000 MG in IV 1 EA IV SCH ×2 (01:39→06:27)
[2022-01-06] MEDS: NS 1,000 ML IV SCH (03:37)
[2022-01-06 05:03] LABS: HEMATOCRIT 39.4 % (42.0-52.0); HEMOGLOBIN 12.9 g/dl (13.5-17.5); MEAN CORPUSCULAR HEMOGLOBIN 27.5 pg (27.0-33.0); MEAN CORPUSCULAR HGB CONC 32.7 g/dl (32.0-36.5); PLATELET COUNT, AUTOMATED 188 10^3/uL (150-450); RED BLOOD COUNT 4.69 10^6/uL (4.30-6.10)
[2022-01-06] MEDS: VANCOMYCIN HCL 1,000 MG, VIAL MATE ADAPTER 1 EACH in D5W 250 ML IV SCH (05:35)
[2022-01-06] MEDS: HEPARIN SOD (PORCINE) 5000UNITS/ML 1ML VIAL/SYRINGE SC SCH (05:35)
[2022-01-06 05:40] LABS: BLOOD UREA NITROGEN 9 MG/DL (7-18); CALCIUM LEVEL 7.8 MG/DL (8.5-10.1); CARBON DIOXIDE LEVEL 26 MEQ/L (21-32); CHLORIDE LEVEL 111 MEQ/L (98-107); CREATININE FOR GFR 0.92 MG/DL (0.70-1.30); GLOMERULAR FILTRATION RATE > 60.0 (>56); GLUCOSE, FASTING 106 MG/DL (70-100); MAGNESIUM LEVEL 2.2 MG/DL (1.8-2.4); SODIUM LEVEL 142 MEQ/L (136-145)
[2022-01-06 06:08] LABS: ABG BASE EXCESS -0.2 (-2.0-2.0); ABG HCO3 25.3 MEQ/L (22.0-26.0); ABG O2 SATURATION 98.5 % (95.0-99.0); ABG PARTIAL PRESSURE CO2 44.7 mmHg (35.0-45.0); ABG STANDARD HCO3 24.4 MEQ/L (22.0-26.0); ABG TOTAL CO2 26.7 MEQ/L (22.0-29.0); ABG pH (ARTERIAL) 7.371 UNITS (7.350-7.450)
[2022-01-06] MEDS: IPRATROPIUM 0.5MG/ALBUTEROL 2.5MG INH SOL UD 3ML (DUONEB) NEB SCH (07:01)
[2022-01-06] MEDS: ADVAIR HFA 115/21MCG INHALER INH SCH (07:01)
[2022-01-06] MEDS: PANTOPRAZOLE 40MG VIAL IV SCH (08:05)
== END 2022-01-06 09:55 | disposition left against medical advice (07) | DRG 720 ==
LOC: M ED 23:30 → M ED INP 01-05 02:24 → ENRESERV 01-05 03:40 → M ICU 01-05 04:23
PROVIDERS: ADMIT Internal Medicine; ATTEND Internal Medicine
PROC: 0BH17EZ Insertion of Endotracheal Airway into Trachea, Via Natural or Artificial Opening (ICD-10-PCS; principal; 2022-01-05)
PROC: 5A1935Z Respiratory Ventilation, Less than 24 Consecutive Hours (ICD-10-PCS; 2022-01-05)
DX: A41.9 Sepsis, unspecified organism (principal); J96.01 Acute respiratory failure with hypoxia; J69.0 Pneumonitis due to inhalation of food and vomit; E87.20 Acidosis, unspecified; J84.9 Interstitial pulmonary disease, unspecified; G40.209 Localization-related (focal) (partial) symptomatic epilepsy and epileptic syndromes with complex partial seizures, not intractable, without status epilepticus; R29.6 Repeated falls; I25.2 Old myocardial infarction; J44.9 Chronic obstructive pulmonary disease, unspecified; G47.33 Obstructive sleep apnea (adult) (pediatric); M06.9 Rheumatoid arthritis, unspecified; F10.229 Alcohol dependence with intoxication, unspecified; I25.10 Atherosclerotic heart disease of native coronary artery without angina pectoris; E78.2 Mixed hyperlipidemia; M25.812 Other specified joint disorders, left shoulder; Z79.899 Other long term (current) drug therapy; Z88.1 Allergy status to other antibiotic agents; Z88.2 Allergy status to sulfonamides; Z88.5 Allergy status to narcotic agent; Z86.73 Personal history of transient ischemic attack (TIA), and cerebral infarction without residual deficits; Z88.8 Allergy status to other drugs, medicaments and biological substances; Z91.013 Allergy to seafood; Z91.018 Allergy to other foods; Z91.030 Bee allergy status

== ENCOUNTER 2022-01-06 23:25 | Emergency (ER) | payer OTHER ==
[~2022-01-06] VITALS: Ht 182.9 cm; Wt 81.8 kg
[~2022-01-06 23:25] MED LIST changes: +ADVA115A INH; +ALBU8.5H INH; +IPRA0.00 NEB; +med rec comment
[2022-01-07] VITALS: BP 122/58
== END 2022-01-07 03:01 | disposition home or self-care (01) ==
LOC: EDBD 23:25 → M ED 23:25
DX: R06.02 Shortness of breath (principal); Z53.9 Procedure and treatment not carried out, unspecified reason; J44.9 Chronic obstructive pulmonary disease, unspecified; Z95.5 Presence of coronary angioplasty implant and graft; Z99.81 Dependence on supplemental oxygen; Z79.899 Other long term (current) drug therapy; Z88.8 Allergy status to other drugs, medicaments and biological substances; Z88.6 Allergy status to analgesic agent; Z91.018 Allergy to other foods; Z91.030 Bee allergy status; Z88.1 Allergy status to other antibiotic agents; Z88.5 Allergy status to narcotic agent

== ENCOUNTER → 2022-02-13 | Outpatient (CLI) | payer OTHER ==
[2022-02-13 13:18] LABS: BASO % 0.6 % (0.0-1.0); EOS # 0.1 10^3/uL (0.0-0.5); EOS % 1.3 % (0.0-3.0); HEMATOCRIT 43.4 % (42.0-52.0); HEMOGLOBIN 13.8 g/dl (13.5-17.5); LYMPH # 1.1 10^3/uL (1.5-5.0); LYMPH % 20.4 % (24.0-44.0); MEAN CORPUSCULAR HEMOGLOBIN 27.2 pg (27.0-33.0); MEAN CORPUSCULAR HGB CONC 31.8 g/dl (32.0-36.5); MEAN CORPUSCULAR VOLUME 85.4 fl (80.0-96.0); MONO # 0.5 10^3/uL (0.0-0.8); MONO % 10.2 % (2.0-8.0); NEUTROPHILS # 3.5 10^3/uL (1.5-8.5); NEUTROPHILS % 67.1 % (36.0-66.0); PLATELET COUNT, AUTOMATED 165 10^3/uL (150-450); RED BLOOD COUNT 5.08 10^6/uL (4.30-6.10); WHITE BLOOD COUNT 5.2 10^3/uL (4.0-10.0)
== END ==
LOC: M RAD 12:50
PROVIDERS: ATTEND Student in an Organized Health Care Education/Training Program
DX: R05.9 Cough, unspecified (principal)

== ENCOUNTER → 2022-07-30 | Outpatient (CLI) | payer OTHER | LOC: M RAD 09:27 | PROVIDERS: ATTEND Internal Medicine Pulmonary Disease | DX: R91.8 Other nonspecific abnormal finding of lung field (principal) ==

== ENCOUNTER → 2023-04-03 | Outpatient (CLI) | payer OTHER | LOC: M RAD 13:08 | PROVIDERS: ATTEND Internal Medicine Pulmonary Disease | DX: J90 Pleural effusion, not elsewhere classified (principal); R91.8 Other nonspecific abnormal finding of lung field ==

== ENCOUNTER → 2023-05-06 | Outpatient (CLI) | payer OTHER ==
[~2023-05-06] MED LIST changes: -ASPI-161 PO; +ASPI-615 PO
[2023-05-06 12:46] LABS: ALBUMIN 3.3 G/DL (3.2-5.2); BILIRUBIN,DIRECT 0.2 MG/DL (<0.4); BILIRUBIN,TOTAL 0.5 MG/DL (0.3-1.2); TOTAL PROTEIN 6.9 G/DL (5.7-8.2)
[2023-05-06 12:59] LABS: RHEUMATOID FACTOR QUANT 212.7 IU/ML (<14)
[2023-05-07 14:13] LABS: RNP ANTIBODY < 0.2 AI (0.0-0.9); SMITHS ANTIBODY < 0.2 AI (0.0-0.9); SSA SJOGRENS A <0.2 AI (0.0-0.9); SSB SJOGRENS B <0.2 AI (0.0-0.9)
== END ==
LOC: M LAB 10:31
PROVIDERS: ATTEND Internal Medicine Pulmonary Disease
DX: J43.1 Panlobular emphysema (principal)

== ENCOUNTER → 2023-05-26 | Outpatient (CLI) | payer OTHER | LOC: M RAD 12:38 | PROVIDERS: ATTEND Internal Medicine Pulmonary Disease | DX: J43.1 Panlobular emphysema (principal) ==

== ENCOUNTER → 2023-07-31 | Outpatient (CLI) | payer OTHER ==
[~2023-07-31] MED LIST changes: +ACET250T18 PO; -ACET250T2 PO
[2023-07-31 13:20] LABS: BASO # 0.1 10^3/uL (0.0-0.2); EOS # 0.3 10^3/uL (0.0-0.5); EOS % 3.5 % (0.0-3.0); HEMATOCRIT 46.8 % (42.0-52.0); HEMOGLOBIN 15.7 g/dl (13.5-17.5); LYMPH # 2.8 10^3/uL (1.5-5.0); LYMPH % 29.2 % (24.0-44.0); MEAN CORPUSCULAR HGB CONC 33.5 g/dl (32.0-36.5); MEAN CORPUSCULAR VOLUME 80.4 fl (80.0-96.0); MONO # 0.6 10^3/uL (0.0-0.8); MONO % 6.4 % (2.0-8.0); NEUTROPHILS # 5.7 10^3/uL (1.5-8.5); NEUTROPHILS % 59.6 % (36.0-66.0); PLATELET COUNT, AUTOMATED 253 10^3/uL (150-450); RED BLOOD COUNT 5.82 10^6/uL (4.30-6.10); WHITE BLOOD COUNT 9.5 10^3/uL (4.0-10.0)
[2023-07-31 13:32] LABS: HEMOGLOBIN A1c 5.5 % (4.0-6.0)
[2023-07-31 13:44] LABS: URIC ACID 7.7 MG/DL (3.7-9.2)
[2023-07-31 13:47] LABS: ALBUMIN 3.5 G/DL (3.2-5.2); ALKALINE PHOSPHATASE 136 U/L (46-116); ALT/SGPT 23 U/L (7.0-40); AST/SGOT 9 U/L (<34); BILIRUBIN,TOTAL 0.7 MG/DL (0.3-1.2); BLOOD UREA NITROGEN 18 MG/DL (9-23); CALCIUM LEVEL 8.8 MG/DL (8.5-10.1); CARBON DIOXIDE LEVEL 24 MMOL/L (20-31); CHLORIDE LEVEL 106 MMOL/L (98-107); CHOLESTEROL LEVEL 177 MG/DL (<200); GLOMERULAR FILTRATION RATE > 60.0 (>56); GLUCOSE, FASTING 105 MG/DL (60-100); HDL CHOLESTEROL 41.1 MG/DL (>40); LDL CHOLESTEROL 107.7 MG/DL (<100); NON-HDL-C 135.9 MG/DL; POTASSIUM SERUM 4.1 MMOL/L (3.5-5.1); SODIUM LEVEL 137 MMOL/L (136-145); TOTAL PROTEIN 6.8 G/DL (5.7-8.2); TRIGLYCERIDES LEVEL 141 MG/DL (<150)
[2023-07-31 13:48] LABS: FREE T4 1.38 NG/DL (0.89-1.76); THYROID STIMULATING HORMONE 2.377 uIU/ML (0.55-4.78)
[2023-07-31 13:51] LABS: APPEARANCE, URINE CLEAR (CLEAR); BACTERIA, URINE AUTO NEGATIVE (NEGATIVE); BILIRUBIN, URINE AUTO NEGATIVE (NEGATIVE); BLOOD, URINE BLOOD NEGATIVE (NEGATIVE); COLOR, URINE YELLOW (YELLOW); GLUCOSE, URINE (UA) AUTO NEGATIVE (NEGATIVE); KETONE, URINE AUTO NEGATIVE (NEGATIVE); LEUKOCYTE ESTERASE, URINE AUTO NEGATIVE (NEGATIVE); NITRITE, URINE AUTO NEGATIVE (NEGATIVE); PROTEIN, URINE AUTO NEGATIVE (NEGATIVE); RBC, URINE AUTO 1 /HPF (0-3); SPECIFIC GRAVITY URINE AUTO 1.015 (1.002-1.035); SQUAMOUS EPITHELIAL CELL UR AU 0 /HPF (0-6); UROBILINOGEN, URINE AUTO 0.2 mg/dL (0.0-2.0); WBC, URINE AUTO 0 /HPF (0-3)
[2023-07-31 14:02] LABS: ERYTHROCYTE SEDIMENTATION RATE 55 mm/hr (0-20)
== END ==
LOC: M LAB 12:36
PROVIDERS: ATTEND Physician Assistant
DX: M05.9 Rheumatoid arthritis with rheumatoid factor, unspecified (principal); E78.2 Mixed hyperlipidemia

== ENCOUNTER → 2024-02-20 | Outpatient (CLI) | payer OTHER | LOC: M RAD 13:44 | PROVIDERS: ATTEND Internal Medicine | DX: M05.9 Rheumatoid arthritis with rheumatoid factor, unspecified (principal); M19.031 Primary osteoarthritis, right wrist; M19.032 Primary osteoarthritis, left wrist; Z79.52 Long term (current) use of systemic steroids ==

== ENCOUNTER → 2024-02-20 | Outpatient (REF) | payer OTHER ==
[2024-02-20 13:58] LABS: APPEARANCE, URINE CLEAR (CLEAR); BACTERIA, URINE AUTO NEGATIVE (NEGATIVE); BILIRUBIN, URINE AUTO NEGATIVE (NEGATIVE); BLOOD, URINE BLOOD NEGATIVE (NEGATIVE); COLOR, URINE STRAW (YELLOW); GLUCOSE, URINE (UA) AUTO NEGATIVE (NEGATIVE); KETONE, URINE AUTO NEGATIVE (NEGATIVE); LEUKOCYTE ESTERASE, URINE AUTO NEGATIVE (NEGATIVE); NITRITE, URINE AUTO NEGATIVE (NEGATIVE); PROTEIN, URINE AUTO NEGATIVE (NEGATIVE); RBC, URINE AUTO 0 /HPF (0-3); SPECIFIC GRAVITY URINE AUTO 1.005 (1.002-1.035); SQUAMOUS EPITHELIAL CELL UR AU 0 /HPF (0-6); UROBILINOGEN, URINE AUTO 0.2 mg/dL (0.0-2.0); WBC, URINE AUTO 0 /HPF (0-3)
[2024-02-20 14:00] LABS: BASO # 0.1 10^3/uL (0.0-0.2); BASO % 0.7 % (0.0-1.0); EOS # 0.2 10^3/uL (0.0-0.5); EOS % 1.7 % (0.0-3.0); HEMATOCRIT 48.2 % (42.0-52.0); HEMOGLOBIN 15.5 g/dl (13.5-17.5); LYMPH # 3.4 10^3/uL (1.5-5.0); LYMPH % 24.7 % (24.0-44.0); MEAN CORPUSCULAR HEMOGLOBIN 26.5 pg (27.0-33.0); MEAN CORPUSCULAR HGB CONC 32.2 g/dl (32.0-36.5); MEAN CORPUSCULAR VOLUME 82.5 fl (80.0-96.0); MONO # 0.8 10^3/uL (0.0-0.8); MONO % 5.5 % (2.0-8.0); NEUTROPHILS # 9.3 10^3/uL (1.5-8.5); PLATELET COUNT, AUTOMATED 266 10^3/uL (150-450); RED BLOOD COUNT 5.84 10^6/uL (4.30-6.10); WHITE BLOOD COUNT 13.8 10^3/uL (4.0-10.0)
[2024-02-20 14:06] LABS: ERYTHROCYTE SEDIMENTATION RATE 61 mm/hr (0-20)
[2024-02-20 14:32] LABS: COMPLEMENT C4 21.1 MG/DL (12-36); IMMUNOGLOBULIN A 434.8 MG/DL (40-350); IMMUNOGLOBULIN G 1207 MG/DL (650-1600)
[2024-02-20 14:33] LABS: ALBUMIN 3.4 G/DL (3.2-5.2); ALKALINE PHOSPHATASE 127 U/L (40-129); ALT/SGPT 21 U/L (7.0-40); AST/SGOT 10 U/L (<34); BILIRUBIN,DIRECT 0.1 MG/DL (<0.4); BILIRUBIN,TOTAL 0.3 MG/DL (0.3-1.2); BLOOD UREA NITROGEN 14 MG/DL (9-23); CALCIUM LEVEL 9.6 MG/DL (8.3-10.6); CARBON DIOXIDE LEVEL 28 MMOL/L (20-31); CHLORIDE LEVEL 104 MMOL/L (98-107); CREATININE FOR GFR 0.89 MG/DL (0.70-1.30); GLOMERULAR FILTRATION RATE > 60.0 (>49); GLUCOSE, FASTING 81 MG/DL (74-106); POTASSIUM SERUM 4.2 MMOL/L (3.5-5.1); SODIUM LEVEL 141 MMOL/L (136-145); TOTAL PROTEIN 7.7 G/DL (5.7-8.2)
[2024-02-20 14:35] LABS: TOTAL 25(OH) VITAMIN D 18.2 NG/ML (20.0-100.0)
[2024-02-21 08:07] LABS: T P ELECTROPHORESIS SO 7.5 g/dL (6.1-8.1)
== END ==
LOC: M SFHCRHEU 10:28
PROVIDERS: ATTEND Internal Medicine
DX: Z79.52 Long term (current) use of systemic steroids (principal); M05.9 Rheumatoid arthritis with rheumatoid factor, unspecified

== ENCOUNTER → 2024-03-16 | Outpatient (CLI) | payer OTHER | LOC: M WHC 11:08 | PROVIDERS: ATTEND Internal Medicine | DX: Z79.52 Long term (current) use of systemic steroids (principal); M85.89 Other specified disorders of bone density and structure, multiple sites ==

== ENCOUNTER → 2024-04-12 | Outpatient (CLI) | payer OTHER | LOC: M RAD 12:06 | PROVIDERS: ATTEND Internal Medicine Pulmonary Disease | DX: R05.9 Cough, unspecified (principal) ==

== ENCOUNTER → 2024-04-13 | Outpatient (CLI) | payer OTHER | LOC: M LAB 11:42 | PROVIDERS: ATTEND Internal Medicine | DX: R77.9 Abnormality of plasma protein, unspecified (principal) ==

== ENCOUNTER 2024-07-15 12:16 | Day surgery (SDC) | payer OTHER ==
[~2024-07-15] VITALS: Ht 182.9 cm; Wt 76.7 kg
[~2024-07-15 12:16] MED LIST changes: +CYCL5TAB4 PO; +ERGO500029 PO; +IBUP200C25 PO; +STIO1AER
[2024-07-15] MEDS ORDERED: propofoL 200 MG/20 ML VIAL As Ordered ONE (13:17)
[2024-07-15] MEDS ORDERED: ALBUTEROL SULFATE 2.5MG/0.5ML INH CONCENTRATE NEB SOLN INH ONE (15:05)
[2024-07-15] MEDS ORDERED: HYDROMORPHONE HCL 0.5 MG/ 0.5 ML SYRINGE IV PRN (15:05)
[2024-07-15] MEDS ORDERED: LR 1,000 ML IV SCH (15:05)
[2024-07-15] MEDS ORDERED: fentaNYL 100 MCG/2 ML INJECTION IV PRN (15:05)
[2024-07-15] MEDS ORDERED: ONDANSETRON 4MG 2ML VIAL IV PRN (15:05)
[2024-07-15 15:29] LABS: HEMATOCRIT 44.8 % (42.0-52.0); HEMOGLOBIN 14.6 g/dl (13.5-17.5); MEAN CORPUSCULAR HEMOGLOBIN 26.5 pg (27.0-33.0); MEAN CORPUSCULAR HGB CONC 32.6 g/dl (32.0-36.5); MEAN CORPUSCULAR VOLUME 81.3 fl (80.0-96.0); PLATELET COUNT, AUTOMATED 238 10^3/uL (150-450); RED BLOOD COUNT 5.51 10^6/uL (4.30-6.10); WHITE BLOOD COUNT 9.1 10^3/uL (4.0-10.0)
[2024-07-15 15:30] VITALS: BP 141/81; O2SAT 97
[2024-07-15 15:51] LABS: ALBUMIN 3.4 G/DL (3.2-5.2); ALKALINE PHOSPHATASE 111 U/L (40-129); ALT/SGPT 12 U/L (7.0-40); AST/SGOT 12 U/L (<34); BILIRUBIN,TOTAL 0.6 MG/DL (0.3-1.2); BLOOD UREA NITROGEN 8 MG/DL (9-23); CALCIUM LEVEL 8.1 MG/DL (8.3-10.6); CARBON DIOXIDE LEVEL 24 MMOL/L (20-31); CHLORIDE LEVEL 109 MMOL/L (98-107); GLOMERULAR FILTRATION RATE > 90.0 (>49); GLUCOSE, FASTING 88 MG/DL (74-106); MB/CK RELATIVE INDEX 2.24 (< OR =4); POTASSIUM SERUM 3.7 MMOL/L (3.5-5.1); SODIUM LEVEL 140 MMOL/L (136-145); TOTAL PROTEIN 7.2 G/DL (5.7-8.2)
== END 2024-07-15 15:02 | disposition home or self-care (01) ==
LOC: M OPP 12:16
PROVIDERS: ATTEND Surgery
DX: Z12.11 Encounter for screening for malignant neoplasm of colon (principal); R19.5 Other fecal abnormalities; D12.6 Benign neoplasm of colon, unspecified; K57.30 Diverticulosis of large intestine without perforation or abscess without bleeding; I48.91 Unspecified atrial fibrillation; Z86.73 Personal history of transient ischemic attack (TIA), and cerebral infarction without residual deficits; G47.30 Sleep apnea, unspecified; Z88.2 Allergy status to sulfonamides; Z88.5 Allergy status to narcotic agent; Z88.6 Allergy status to analgesic agent; Z88.8 Allergy status to other drugs, medicaments and biological substances; Z91.013 Allergy to seafood; Z91.030 Bee allergy status; Z91.02 Food additives allergy status; Z79.51 Long term (current) use of inhaled steroids; Z79.899 Other long term (current) drug therapy; F17.210 Nicotine dependence, cigarettes, uncomplicated; R56.9 Unspecified convulsions; J44.9 Chronic obstructive pulmonary disease, unspecified

== ENCOUNTER → 2024-10-08 | Outpatient (CLI) | payer OTHER ==
[~2024-10-08] MED LIST changes: -PRAV20TA2 PO; +PRAV20TA78 PO
[2024-10-08 11:52] LABS: BASO # 0.1 10^3/uL (0.0-0.2); BASO % 0.7 % (0.0-1.0); EOS # 0.3 10^3/uL (0.0-0.5); EOS % 2.0 % (0.0-3.0); LYMPH # 2.5 10^3/uL (1.5-5.0); LYMPH % 19.7 % (24.0-44.0); MONO # 0.7 10^3/uL (0.0-0.8); MONO % 5.2 % (2.0-8.0); NEUTROPHILS # 9.3 10^3/uL (1.5-8.5); NEUTROPHILS % 72.1 % (36.0-66.0); PLATELET COUNT, AUTOMATED 248 10^3/uL (150-450)
[2024-10-08 13:39] LABS: ALT/SGPT 24.0 U/L (7.0-40); AST/SGOT 17.0 U/L (<34); CALCIUM LEVEL 8.9 MG/DL (8.3-10.6); CARBON DIOXIDE LEVEL 28.0 MMOL/L (20-31); CHLORIDE LEVEL 104.0 MMOL/L (98-107); CHOLESTEROL LEVEL 208.0 MG/DL (<200); CHOLESTEROL RISK RATIO 4.11 (<5); CREATININE FOR GFR 0.98 MG/DL (0.70-1.30); GLOMERULAR FILTRATION RATE 87.7 (>49); LDL CHOLESTEROL 131.3 MG/DL (<100); NON-HDL-C 157.5 MG/DL; POTASSIUM SERUM 4.2 MMOL/L (3.5-5.1); SODIUM LEVEL 142.0 MMOL/L (136-145); TOTAL 25(OH) VITAMIN D 32.6 NG/ML (20.0-100.0); TRIGLYCERIDES LEVEL 131.0 MG/DL (<150)
[2024-10-08 15:07] LABS: ESTIMATED AVERAGE GLUCOSE 114.0 MG/DL (60-110)
== END ==
LOC: M LAB 10:33
DX: J44.9 Chronic obstructive pulmonary disease, unspecified (principal); E78.2 Mixed hyperlipidemia; G47.33 Obstructive sleep apnea (adult) (pediatric); M05.9 Rheumatoid arthritis with rheumatoid factor, unspecified